=== PATIENT | female | born 1940 | race Caucasian/White ===

== ENCOUNTER 2017-06-26 12:28 | Inpatient (IN) ==
--- NOTE | 2017-06-26 12:56 | Emergency Department Note ---
Disposition Clinical Impression: Compression fracture of thoracic spine, non-traumatic Qualifiers: Encounter type: initial encounter Thoracic vertebra fracture level: T12 Qualified Code(s): M48.54XA - Collapsed vertebra, not elsewhere classified, thoracic region, initial encounter for fracture Disposition: Admitted As Inpatient Condition: Good Forms: ED Satisfaction Letter Time of Disposition: 14:05 (Dr Denise) Fall HPI - General Chief Complaint: ED Back Pain/Injury Stated Complaint: fell,legs gave out Time Seen by Provider: 06/26/17 12:39 Source: patient, family Mode of arrival: EMS Limitations: no limitations Nursing Notes Reviewed: Yes Vital Signs Reviewed: Yes - History of Present Illness Pt Subjective Complaint: fall Onset (ago): Just [employer] Fall From: standing Fall Witnessed: no Place Fall Occurred: home Loss of Consciousness: none Prolonged Down Time?: no Symptoms Prior to Fall: none Context: other (76-year-old female brought in by EMS secondary to fall at home. The patient was laying down for approximately an hour in her bed and decided to get up and go to the bathroom. The patient had approximately 3 steps and she felt weak in her lower extremities and subsequently fell to the floor. She states following was likely on her knees and her hands. She denies any loss of consciousness. The patient was seen by PCP on Sunday and had an x- ray done of her lower back secondary to pain. Drink this time the patient is reported to have weakness and falling in the last week or so. She denies any associated chest pain, dizziness, abdominal pain, paresthesia to the lower extremities or weakness, or palpitation. Denies blurry vision) Location of injury: back Severity: moderate Severity scale (1-10): 4 Quality: dull Associated symptoms (after fall): Reports: weakness, unable to walk, other ( Secondary to difficulty walking she had 2 bouts of bladder incontinence.). Denies: shortness of breath, abdominal pain, hematuria, lightheaded, vertigo, confusion - Related Data Home Medications Medication Instructions Recorded Confirmed Esomeprazole Magnesium [Nexium] 40 mg PO DAILY 05/15/15 06/26/17 Losartan Potassium [Cozaar] 50 mg PO BID 05/15/15 06/26/17 Atorvastatin [Lipitor] 40 mg PO HS 06/14/15 06/26/17 Clopidogrel [Plavix] 75 mg PO DAILY 06/14/15 06/26/17 Isosorbide MONOnitrate (24 HR) 30 mg PO DAILY 06/14/15 06/26/17 [Imdur] Sertraline [Zoloft] 100 mg PO DAILY 01/01/17 06/26/17 Tramadol HCl [Ultram] 50 mg PO BID PRN 01/01/17 06/26/17 Previous Rx's Medication Instructions Recorded ALPRAZolam [Xanax 0.25 MG Tablet] 0.25 mg PO BID PRN #120 tablet 06/24/15 Carvedilol [Coreg] 6.25 mg PO BIDWM 365 Days tablet 06/24/15 Gabapentin [Neurontin] 300 mg PO DAILY #0 06/24/15 metFORMIN [Glucophage] 500 mg PO 0800 365 Days tablet 06/24/15 HYDROcodone/Acet 5/325 mg [[place] 1 tab PO Q4H PRN #15 tab 01/01/17 5-325 mg] predniSONE [PredniSONE] 60 mg PO DAILY #5 tablet 01/01/17 Allergies Allergy/AdvReac Type Severity Reaction Status Date / Time lorazepam [From Ativan] Allergy Hallucinati Verified 01/01/17 12:42 ng All systems ED: reviewed and negative except as stated. Fall PMH - Past Medical History Medical history: Reports: arthritis, coronary artery disease, diabetes, hypertension, other Surgical history: Reports: angioplasty/stent, hysterectomy, orthopedic, other Psychiatric history: Reports: depression - Social History Smoking Status: Never smoker Alcohol use: Reports: rarely Drug use: Reports: none Physical Exam - General Limitations: physical limitation General appearance: alert, in no apparent distress - Head Head exam: atraumatic, normocephalic, normal inspection - Eye Eye exam: Present: normal appearance, PERRL, EOMI. Absent: scleral icterus, conjunctival injection, nystagmus - ENT ENT exam: normal exam, normal oropharynx, mucous membranes moist - Neck Neck exam: Present: normal inspection, full ROM, trachea midline - Respiratory Respiratory exam: Present: normal lung sounds bilaterally - Cardiovascular Cardiovascular exam: Present: regular rate, normal rhythm, normal heart sounds - Abdominal Exam Abdominal exam: Present: soft, Non-Tender. Absent: tenderness, distention, guarding, rebound, rigidity - Extremities Exam Extremities exam: Present: normal inspection, full ROM. Absent: tenderness, pedal edema - Expanded Lower Extremity Exam Hip/Pelvis exam: Present: normal inspection, full ROM. Absent: tenderness Upper leg exam: Present: normal inspection, full ROM Knee exam: Present: normal inspection, full ROM, tenderness (Bilateral Mild tenderness to palpation anteriorly) Lower leg exam: Present: normal inspection, full ROM Ankle exam: Present: normal inspection, full ROM - Back Exam Back exam: Present: normal inspection, full ROM, tenderness, paraspinal tenderness (Lower thoracic and upper lumbar area). Absent: vertebral tenderness - Neurological Exam Neurological exam: Present: alert, oriented X3, CN II-XII intact. Absent: motor sensory deficit - Psychiatric Psychiatric exam: Present: normal affect, normal mood - Skin Skin exam: Present: warm, dry, intact, normal color Course Vital Signs Temperature 97.7 F 06/26/17 12:33 Pulse Rate 61 06/26/17 12:33 Respiratory Rate 18 06/26/17 12:33 Blood Pressure 163/80 06/26/17 12:33 O2 Sat by Pulse Oximetry 94 06/26/17 12:33 Temperature 97.7 F 06/26/17 12:33 Pulse Rate 61 06/26/17 12:33 Respiratory Rate 18 06/26/17 12:33 Blood Pressure 163/80 06/26/17 12:33 O2 Sat by Pulse Oximetry 94 06/26/17 12:33 Oxygen Delivery Oxygen Delivery Room Air Fall - Differential Diagnosis Likely: syncope, traumatic injury - Medical Records Medical records reviewed: Yes I reviewed the patient's medical records. - Lab Data Lab results reviewed: Yes I reviewed the patient's lab results. Result diagrams: 06/26/17 13:12 06/26/17 13:12 Lab Results 06/26/17 06/26/17 06/26/17 Range/Units 13:12 13:12 13:12 WBC 9.8 (4.3-11.1) K/mcL RBC 4.38 (3.82-4.97) M/mcL Hgb 13.3 (11.5-15.4) g/dL Hct 39.4 (35.3-44.9) % MCV 90.0 (83.0-100.0) fL MCH 30.4 (28.0-33.3) pg MCHC 33.8 (31.6-35.5) g/dL RDW 12.7 (11.5-14.5) % Plt Count 376 (140-400) K/mcL MPV 9.1 L (9.4-12.4) fL Immature Gran % 0.4 (0-4) % Seg Neutrophils % 70.5 % Lymphocytes % 21.6 % Monocytes % 5.5 % Eosinophils % 1.4 % Basophils % 0.6 % Neutrophils # 6.9 (1.6-8.9) K/mcL Lymphocytes # 2.1 (0.6-4.6) K/mcL Monocytes # 0.5 (0.0-1.3) K/mcL Eosinophils # 0.1 (0.0-0.6) K/mcL Basophils # 0.1 (0.0-0.2) K/mcL Sodium 137 (136-145) mEq/L Potassium 3.7 (3.5-5.1) mEq/L Chloride 96 L (98-107) mEq/L Carbon Dioxide 34 H (23-29) mEq/L BUN 13 (8-23) mg/dL Glucose 109 H (70-105) mg/dL Calculated Osmolality 285 (280-300) Calcium 9.3 (8.6-10.3) mg/dL Creatine Kinase 91 (30-223) Units/L Urine Color (Yellow) Urine Clarity (Clear) Urine pH (5.0-8.0) pH Units Ur Specific [place] (1.010-1.025) Urine Protein (Neg-Trace) mg/dL Urine Glucose (UA) (Normal) mg/dL Urine Ketones (Negative) mg/dL Urine Blood (Negative) Urine Nitrite (Negative) Urine Bilirubin (Negative) Urine Urobilinogen (Normal) mg/dL Ur Leukocyte Esterase (Negative) Urine Microscopic RBC (0-3) per hpf Urine Microscopic WBC (0-3) per hpf Ur Squamous Epith Cells (None-Few) per lpf Ur Culture Indicated? (NO) 06/26/17 Range/Units 13:29 WBC (4.3-11.1) K/mcL RBC (3.82-4.97) M/mcL Hgb (11.5-15.4) g/dL Hct (35.3-44.9) % MCV (83.0-100.0) fL MCH (28.0-33.3) pg MCHC (31.6-35.5) g/dL RDW (11.5-14.5) % Plt Count (140-400) K/mcL MPV (9.4-12.4) fL Immature Gran % (0-4) % Seg Neutrophils % % Lymphocytes % % Monocytes % % Eosinophils % % Basophils % % Neutrophils # (1.6-8.9) K/mcL Lymphocytes # (0.6-4.6) K/mcL Monocytes # (0.0-1.3) K/mcL Eosinophils # (0.0-0.6) K/mcL Basophils # (0.0-0.2) K/mcL Sodium (136-145) mEq/L Potassium (3.5-5.1) mEq/L Chloride (98-107) mEq/L Carbon Dioxide (23-29) mEq/L BUN (8-23) mg/dL Glucose (70-105) mg/dL Calculated Osmolality (280-300) Calcium (8.6-10.3) mg/dL Creatine Kinase (30-223) Units/L Urine Color Yellow (Yellow) Urine Clarity Clear (Clear) Urine pH 7.0 (5.0-8.0) pH Units Ur Specific [place] 1.015 (1.010-1.025) Urine Protein 30 H (Neg-Trace) mg/dL Urine Glucose (UA) Normal (Normal) mg/dL Urine Ketones Negative (Negative) mg/dL Urine Blood Trace-intact H (Negative) Urine Nitrite Negative (Negative) Urine Bilirubin Negative (Negative) Urine Urobilinogen Normal (Normal) mg/dL Ur Leukocyte Esterase Negative (Negative) Urine Microscopic RBC 0-3 (0-3) per hpf Urine Microscopic WBC 0-3 (0-3) per hpf Ur Squamous Epith Cells Few (None-Few) per lpf Ur Culture Indicated? NO (NO) - Radiology Data Radiology results reviewed: Yes I reviewed the patient's radiology results. Thoracic Spine CT 06/26/17 13:06 IMPRESSION: 1. Acute minimal anterior compression deformity of T12 involving the anterior portion of the superior endplate. 2. Bony demineralization, suggesting osteoporosis given the above finding. 3. Mild to moderate thoracic spine degenerative changes. D/ / Сергей Cruz MD / Сергей Cruz MD Interpreting Provider: Сергей Cruz MD Head CT 06/26/17 13:10 IMPRESSION: No acute intracranial hemorrhage or mass effect. Mild disproportionate ventricular enlargement, similar to 2016. Findings may reflect central atrophy and/or communicating hydrocephalus. There is moderate periventricular white matter disease. D/ / Myles Harry MD / Myles Harry MD Interpreting Provider: Myles Harry MD
[2017-06-26] MEDS ORDERED: *HR* HYDROcodone/Acet 5/325 mg TABLET PO ONE (13:07)
[2017-06-26 13:21] LABS: Basophils # 0.1 K/mcL (0.0-0.2); Basophils % 0.6 %; Eosinophils # 0.1 K/mcL (0.0-0.6); Eosinophils % 1.4 %; Hematocrit 39.4 % (35.3-44.9); Hemoglobin 13.3 g/dL (11.5-15.4); Immature Granulocytes % 0.4 % (0-4); Lymphocytes # 2.1 K/mcL (0.6-4.6); Lymphocytes % 21.6 %; Mean Corpuscular HGB Conc 33.8 g/dL (31.6-35.5); Mean Corpuscular Hemoglobin 30.4 pg (28.0-33.3); Mean Platelet Volume 9.1 fL (9.4-12.4); Monocytes # 0.5 K/mcL (0.0-1.3); Monocytes % 5.5 %; Neutrophils # 6.9 K/mcL (1.6-8.9); Platelet Count 376 K/mcL (140-400); Red Blood Count 4.38 M/mcL (3.82-4.97); Red Cell Distribution Width 12.7 % (11.5-14.5); Segmented Neutrophils % 70.5 %
[2017-06-26 13:33] LABS: Bilirubin,Urine Negative (Negative); Blood,Urine Trace-intact (Negative); Clarity,Urine Clear (Clear); Color,Urine Yellow (Yellow); Glucose,Urine (UA) Normal (Normal); Ketones,Urine Negative (Negative); Leukocyte Esterase,Urine Negative (Negative); Nitrite,Urine Negative (Negative); Protein,Urine 30 mg/dL (Neg-Trace); Specific Gravity,Urine 1.015 (1.010-1.025); Urobilinogen,Urine Normal (Normal)
[2017-06-26 13:44] LABS: RBC,Urine 0-3 per hpf (0-3); Squamous Epithelial Cell,Urine Few per lpf (None-Few); WBC,Urine 0-3 per hpf (0-3)
[2017-06-26 13:51] LABS: Blood Urea Nitrogen 13 mg/dL (8-23); Calcium 9.3 mg/dL (8.6-10.3); Carbon Dioxide 34 mEq/L (23-29); Chloride 96 mEq/L (98-107); Glucose 109 mg/dL (70-105); Osmolality,Calculated 285 (280-300); Potassium 3.7 mEq/L (3.5-5.1); Sodium 137 mEq/L (136-145)
[2017-06-26 14:53] LABS: Thyroid Stimulating Hormone 3.253 mcIU/mL (0.340-5.600)
[2017-06-26 15:01] LABS: BUN/Creatinine Ratio 18 (6-26); eGFR For African Americans > 60 (> 60); eGFR For Non-African Americans > 60 (> 60)
[2017-06-26] MEDS ORDERED: ALPRAZolam 0.25 MG TABLET PO PRN (16:26)
[2017-06-26] MEDS ORDERED: traMADol 50 MG TABLET PO PRN (16:26)
[2017-06-26] MEDS ORDERED: Naloxone 0.4 MG/ML INJ IVP PRN (16:26)
[2017-06-26] MEDS ORDERED: *HR* OxyCODONE Immed Rel 5 MG TABLET PO PRN (16:26)
[2017-06-26] MEDS ORDERED: Ondansetron ODT 4 MG TAB.RAPDIS SL PRN (16:26)
[2017-06-26] MEDS: *HR* OxyCODONE Immed Rel 5 MG TABLET PO PRN (18:00)
[2017-06-26] MEDS: *HR* HYDROcodone/Acet 5/325 mg TABLET PO PRN (21:53)
[2017-06-27] MEDS: *HR* OxyCODONE Immed Rel 5 MG TABLET PO PRN (03:39)
[2017-06-27] MEDS: Isosorbide MONOnitrate (24 HR) 30 MG TAB.ER.24H PO SCH (08:43)
[2017-06-27] MEDS: Gabapentin 300 MG CAPSULE PO SCH (08:43)
[2017-06-27] MEDS: *HR* Metformin 500 MG TABLET PO SCH (08:43)
[2017-06-27] MEDS ORDERED: predniSONE 20 MG TABLET PO SCH (09:00)
--- NOTE | 2017-06-27 12:10 | Internal Med History&Physical ---
Date of Encounter: 06/27/17 Time of Encounter: 11:40 Assessment and Plan (1) T12 compression fracture Current visit: Yes Status: Acute Will give scheduled and prn analgesics. Check vitamin D level. Will order PT and OT evaluation (2) Osteoporosis Current visit: Yes Status: Chronic We will check vitamin D level. Qualifiers: Osteoporosis type: unspecified Presence of current pathological fracture: unspecified Qualified Code(s): M81.0 - Age-related osteoporosis without current pathological fracture (3) DM type 2 (diabetes mellitus, type 2) Current visit: No Status: Chronic We will check hemoglobin A1c in a.m. Qualifiers: Diabetes mellitus fci insulin use: without fci use Diabetes mellitus complication status: without complication Qualified Code(s): E11.9 - Type 2 diabetes mellitus without complications (4) Hypertension Current visit: No Status: Chronic Will continue Coreg and Cozaar. Qualifiers: Hypertension type: essential hypertension Qualified Code(s): I10 - Essential (primary) hypertension Internal Medicine - H&P: HPI Chief complaint: Follow with back pain Admitted From: Emergency Dept Plans for Post Hospital Care: Home History of present illness: Ms. Pisano is a 76 year old female who came to emergency room after having a fall at home while ambulating from her bed to the bathroom. She denies loss of consciousness but states she simply became weak and fell to the floor landing on her buttocks. She called family members who called the squad and she was brought to emergency room. CT of thoracic spine showed approximately 15% anterior compression deformity of anterior superior endplate of T12. She was admitted to [facility] [place] for ongoing care needs. Her PCP had ordered LS spine x-rays 06/22/2017 following a fall. The T12 vertebra showed less than 10% loss of vertebral body height. There was stable L2 superior endplate compression fracture and unchanged grade 1 anterolisthesis of L2 on L3. She has had posterior lumbar spinal fusion and discectomy L3-5. There was evidence of osteoporosis on imaging studies. She had document a low vitamin D level of 23 on 11/09/2016. She has DJD but denies gout or other bone joint or muscle disorders. Past Med Surg Social Fam HX - Past Medical History Medical history: arthritis, coronary artery disease, diabetes, hypertension, other Psychiatric history: depression - Past Surgical History Surgical History: angioplasty/stent, hysterectomy, orthopedic, other - Social History Smoking Status: Never smoker Smokeless Tobacco Status: No Alcohol use: rarely Drug use: none Internal Medicine - H&P: Meds Esomeprazole Magnesium [Nexium] 40 mg PO DAILY 05/15/15 [History] Losartan Potassium [Cozaar] 50 mg PO BID 05/15/15 [History] Atorvastatin [Lipitor] 40 mg PO HS 06/14/15 [History] Clopidogrel [Plavix] 75 mg PO DAILY 06/14/15 [History] Isosorbide MONOnitrate (24 HR) [Imdur] 30 mg PO DAILY 06/14/15 [History] ALPRAZolam [Xanax 0.25 MG Tablet] 0.25 mg PO BID PRN #120 tablet 06/24/15 [Rx] Carvedilol [Coreg] 6.25 mg PO BIDWM 365 Days tablet 06/24/15 [Rx] Gabapentin [Neurontin] 300 mg PO DAILY #0 06/24/15 [Rx] metFORMIN [Glucophage] 500 mg PO 0800 365 Days tablet 06/24/15 [Rx] HYDROcodone/Acet 5/325 mg [[place] 5-325 mg] 1 tab PO Q4H PRN #15 tab 01/01/17 [Rx ] Sertraline [Zoloft] 100 mg PO DAILY 01/01/17 [History] Tramadol HCl [Ultram] 50 mg PO BID PRN 01/01/17 [History] predniSONE [PredniSONE] 60 mg PO DAILY #5 tablet 01/01/17 [Rx] 3 Allergy/AdvReac Type Severity Reaction Status Date / Time lorazepam [From Ativan] AdvReac Hallucinati Verified 06/26/17 16:37 ng All Systems PM: A 10-system review of systems was performed and is negative for pertinent findings except as documented above in the HPI. Review of systems: Gen.: Her weight has increased from 69.003 kg on 09/04/2015 to 77.224 kg on admission now. She states weight increase is due to drinking increased amounts of soda pop. Cardiovascular: She has history of hypertension and known ASHD with 5 stents placed. Her most recent stent was July 2015 at [facility]. She denies heart failure SC DVT or pulmonary embolus. Respiratory: She is a lifelong nonsmoker and has no known chronic lung disease. GI: She has GERD but denies other disorders of her liver gallbladder or exocrine pancreas. : She denies hematuria dysuria or kidney stones. Neurologic: She denies large distribution strokes or seizures. She does have DPN Endocrine: She was diagnosed with DM 2 approximately 2009. Hemoglobin A1c was 5.5% on 03/08/2016. She has hyperlipidemia but no known thyroid disease. Hematology/oncology: She denies blood disorders cancers or anemia. Psychiatric: She has anxiety and depression but denies other mental health issues Musk skeletal: As per history of present illness - Constitutional Vitals: Temp Pulse Resp BP Pulse Ox 98.2 F 67 17 149/72 93 06/27/17 11:30 06/27/17 11:30 06/27/17 11:30 06/27/17 11:30 06/27/17 11:30 Exam: Gen.: She is a well-developed well-nourished female lying in bed who appears in pain on any movement of her low back. HEENT: Head is atraumatic and normocephalic. Eyes: EOMI. There is no scleral icterus. Mouth: Mucosa is moist. Neck: Supple and nontender. There is no thyromegaly or adenopathy noted. Heart: Regular without murmurs gallops or ectopics Lungs: No wheezes or crackles are heard. Abdomen: Soft and nontender. No masses or guarding are noted. Extremities: There is no cyanosis edema or clubbing noted. Dorsalis pedis and posttibial pulses are trace to 1+ palpable bilaterally. She has DJD changes or hands. Neurologic: Mental status: She is talkative and a good historian. Cranial nerves: Smile is symmetric. Forehead wrinkles bilaterally. Tongue protrudes midline. EOMI. Motor: There is no pronator drift. Cerebellar: Finger to nose is intact bilaterally. Skin: Warm and dry Internal Med - H&P Results - Labs CBC & Chem 7: 06/26/17 13:12 06/26/17 13:12
[2017-06-27] MEDS: Methyl Salicylate/Menthol 28 GM TUBE TP SCH (14:11)
[2017-06-27] MEDS: Acetaminophen 325 MG TABLET PO SCH ×3 (14:11→23:12)
[2017-06-27] MEDS: Primidone 50 MG TABLET PO SCH ×2 (16:50→20:29)
[2017-06-27] MEDS: ALPRAZolam 0.25 MG TABLET PO SCH (20:29)
[2017-06-28] MEDS: *HR* OxyCODONE Immed Rel 5 MG TABLET PO PRN (00:28)
[2017-06-28] MEDS: Acetaminophen 325 MG TABLET PO SCH ×3 (05:30→17:52)
[2017-06-28] MEDS: *HR* Enoxaparin 40 MG/0.4 ML SYRINGE SQ SCH (05:31)
[2017-06-28] MEDS: Gabapentin 300 MG CAPSULE PO SCH (08:37)
[2017-06-28] MEDS: *HR* Metformin 500 MG TABLET PO SCH (08:37)
[2017-06-28] MEDS: Isosorbide MONOnitrate (24 HR) 30 MG TAB.ER.24H PO SCH (08:38)
[2017-06-28] MEDS: ALPRAZolam 0.25 MG TABLET PO SCH ×2 (08:42→21:13)
[2017-06-28] MEDS: Primidone 50 MG TABLET PO SCH ×3 (08:42→21:17)
[2017-06-28] MEDS: Methyl Salicylate/Menthol 28 GM TUBE TP SCH (08:44)
[2017-06-28 09:57] LABS: Estimated Average Glucose 117 mg/dl; Hemoglobin A1C 5.7 %
[2017-06-28] MEDS ORDERED: Ondansetron ODT 4 MG TAB.RAPDIS SL PRN (10:34)
--- NOTE | 2017-06-28 10:59 | Internal Med Progress Note ---
Date of Encounter: 06/28/17 Time of Encounter: 10:25 - Assessment and plan (1) T12 compression fracture Current Visit: Yes Status: Acute Assessment and plan: June 28. Continue therapy interventions with present analgesic regimen. (2) Osteoporosis Current Visit: Yes Status: Chronic Assessment and plan: June 28. Vitamin D level pending Qualifiers: Osteoporosis type: unspecified Presence of current pathological fracture: unspecified Qualified Code(s): M81.0 - Age-related osteoporosis without current pathological fracture (3) DM type 2 (diabetes mellitus, type 2) Current Visit: No Status: Chronic Assessment and plan: June 28. Hemoglobin A1c acceptable at 5.7%. Qualifiers: Diabetes mellitus fdc insulin use: without fdc use Diabetes mellitus complication status: without complication Qualified Code(s): E11.9 - Type 2 diabetes mellitus without complications (4) Hypertension Current Visit: No Status: Chronic Assessment and plan: June 28. Blood pressures show significant fluctuation. Continue Coreg and Cozaar at present doses for now. Qualifiers: Hypertension type: essential hypertension Qualified Code(s): I10 - Essential (primary) hypertension (5) Nausea Current Visit: Yes Status: Acute Assessment and plan: June 28. Continue Zofran when necessary (6) Insomnia Current Visit: Yes Status: Acute Assessment and plan: June 28. We will order trazodone. Qualifiers: Insomnia type: unspecified Qualified Code(s): G47.00 - Insomnia, unspecified - Subjective Interval history: June 28. She complains of nausea. Her back pain has lessened on the present regimen from yesterday. - Constitutional Vitals: Temp Pulse Resp BP Pulse Ox 97.4 F L 65 20 172/69 93 06/28/17 10:16 06/28/17 10:16 06/28/17 10:16 06/28/17 10:16 06/28/17 10:16 Exam: She is resting comfortably in bed and appears in no acute distress. Her affect is bright and cheerful. She does not appear to be in significant pain. I reviewed her medications. I discussed her hemoglobin A1c result. Internal Medicine: Result - Labs CBC & Chem 7: 06/26/17 13:12 06/26/17 13:12 Consult Discharge Plan - Plan Referrals: Tania Morales MD [Primary Care Provider] - 1 week
[2017-06-28] MEDS: *HR* HYDROcodone/Acet 5/325 mg TABLET PO PRN (21:10)
[2017-06-28] MEDS: traZODone 50 MG TABLET PO SCH (21:11)
[2017-06-29] MEDS: Acetaminophen 325 MG TABLET PO SCH ×4 (06:29→16:11)
[2017-06-29] MEDS: *HR* Enoxaparin 40 MG/0.4 ML SYRINGE SQ SCH ×2 (06:29→06:41)
[2017-06-29] MEDS: *HR* Metformin 500 MG TABLET PO SCH (08:50)
[2017-06-29] MEDS: Isosorbide MONOnitrate (24 HR) 30 MG TAB.ER.24H PO SCH (08:50)
[2017-06-29] MEDS: Gabapentin 300 MG CAPSULE PO SCH (08:50)
[2017-06-29] MEDS: ALPRAZolam 0.25 MG TABLET PO SCH ×2 (08:51→21:00)
[2017-06-29] MEDS: Primidone 50 MG TABLET PO SCH ×3 (08:55→21:03)
[2017-06-29] MEDS: Methyl Salicylate/Menthol 28 GM TUBE TP SCH (08:55)
--- NOTE | 2017-06-29 09:52 | Internal Med Progress Note ---
Date of Encounter: 06/29/17 Time of Encounter: 09:45 - Assessment and plan (1) T12 compression fracture Current Visit: Yes Status: Acute Assessment and plan: June 28. Continue therapy interventions with present analgesic regimen. June 29. Continue present treatment. Anticipate discharge to swing bed in 1- 2 days for ongoing rehabilitation care needs. (2) Osteoporosis Current Visit: Yes Status: Chronic Assessment and plan: June 28. Vitamin D level pending June 29. Vitamin D level acceptable at 29. Qualifiers: Osteoporosis type: unspecified Presence of current pathological fracture: unspecified Qualified Code(s): M81.0 - Age-related osteoporosis without current pathological fracture (3) DM type 2 (diabetes mellitus, type 2) Current Visit: No Status: Chronic Assessment and plan: June 28. Hemoglobin A1c acceptable at 5.7%. Qualifiers: Diabetes mellitus ferry terminal agent insulin use: without ferry terminal agent use Diabetes mellitus complication status: without complication Qualified Code(s): E11.9 - Type 2 diabetes mellitus without complications (4) Hypertension Current Visit: No Status: Chronic Assessment and plan: June 28. Blood pressures show significant fluctuation. Continue Coreg and Cozaar at present doses for now. Qualifiers: Hypertension type: essential hypertension Qualified Code(s): I10 - Essential (primary) hypertension (5) Nausea Current Visit: Yes Status: Acute Assessment and plan: June 28. Continue Zofran when necessary (6) Insomnia Current Visit: Yes Status: Acute Assessment and plan: June 28. We will order trazodone. June 29. Trazodone effective. Will continue Qualifiers: Insomnia type: unspecified Qualified Code(s): G47.00 - Insomnia, unspecified - Subjective Interval history: June 28. She complains of nausea. Her back pain has lessened on the present regimen from yesterday. June 29. She has no new complaints and feels better. She is still having occasional slight nausea but it has lessened. - Constitutional Vitals: Temp Pulse Resp BP Pulse Ox 98.0 F 66 12 157/84 94 06/29/17 07:01 06/29/17 07:01 06/29/17 07:01 06/29/17 07:01 06/29/17 07:01 Exam: She is resting comfortably in bed and appears in no acute distress. Her affect is bright and cheerful. I reviewed her medications. Internal Medicine: Result - Labs CBC & Chem 7: 06/26/17 13:12 06/26/17 13:12 Consult Discharge Plan - Plan Referrals: Tania Morales MD [Primary Care Provider] - 1 week
[2017-06-29] MEDS: traZODone 50 MG TABLET PO SCH (20:59)
[2017-06-29] MEDS: *HR* OxyCODONE Immed Rel 5 MG TABLET PO PRN (21:02)
[2017-06-30] MEDS: Acetaminophen 325 MG TABLET PO SCH ×3 (00:24→11:23)
[2017-06-30] MEDS: *HR* Enoxaparin 40 MG/0.4 ML SYRINGE SQ SCH (06:30)
[2017-06-30] MEDS: *HR* Metformin 500 MG TABLET PO SCH (07:27)
[2017-06-30] MEDS: Primidone 50 MG TABLET PO SCH (07:28)
[2017-06-30] MEDS: Gabapentin 300 MG CAPSULE PO SCH (08:26)
[2017-06-30] MEDS: Methyl Salicylate/Menthol 28 GM TUBE TP SCH (08:27)
[2017-06-30] MEDS: Isosorbide MONOnitrate (24 HR) 30 MG TAB.ER.24H PO SCH (08:27)
[2017-06-30] MEDS: ALPRAZolam 0.25 MG TABLET PO SCH (08:31)
[2017-06-30 13:08] VITALS: BP 117/66
[2017-06-30] MEDS: *HR* HYDROcodone/Acet 5/325 mg TABLET PO PRN (13:08)
--- NOTE | 2017-06-30 14:29 | Discharge Summary ---
Date of Encounter: 06/30/17 Time of Encounter: 14:15 - Discharge Diagnosis (1) T12 compression fracture Priority: Primary Status: Acute (2) Osteoporosis Priority: Secondary Status: Chronic Qualifiers: Osteoporosis type: unspecified Presence of current pathological fracture: unspecified Qualified Code(s): M81.0 - Age-related osteoporosis without current pathological fracture (3) DM type 2 (diabetes mellitus, type 2) Priority: Secondary Status: Chronic Qualifiers: Diabetes mellitus usp insulin use: without usp use Diabetes mellitus complication status: without complication Qualified Code(s): E11.9 - Type 2 diabetes mellitus without complications (4) Hypertension Priority: Secondary Status: Chronic Qualifiers: Hypertension type: essential hypertension Qualified Code(s): I10 - Essential (primary) hypertension (5) Nausea Priority: Secondary Status: Acute (6) Insomnia Priority: Secondary Status: Acute Qualifiers: Insomnia type: unspecified Qualified Code(s): G47.00 - Insomnia, unspecified Hospital course: Ms. Pisano is a 76 year old female who came to emergency room after having a fall at home while ambulating from her bed to the bathroom. She denies loss of consciousness but states she simply became weak and fell to the floor landing on her buttocks. She called family members who called the squad and she was brought to emergency room. CT of thoracic spine showed approximately 15% anterior compression deformity of anterior superior endplate of T12. She was admitted to [facility] for ongoing care needs. Initial orders were written by the emergency room physician. I saw her on June 27 and performed a history and physical. She was given scheduled and prn analgesics. Physical therapy and occupational therapy evaluations with ongoing interventions were done. She made satisfactory improvement. It was felt she would benefit from ongoing therapy in swing bed. Vitamin D level returned satisfactory at 29. Hemoglobin A1c returned satisfactory at 5.7%. TSH was normal at 3.253. On June 30 she was discharged to swing bed. - Time Spent with Patient Total time spent providing and/or coordinating discharge services: - Discharge Medications Home Medications: Esomeprazole Magnesium [Nexium] 40 mg PO DAILY 05/15/15 [History] Losartan Potassium [Cozaar] 50 mg PO BID 05/15/15 [History] Atorvastatin [Lipitor] 40 mg PO HS 06/14/15 [History] Clopidogrel [Plavix] 75 mg PO DAILY 06/14/15 [History] Isosorbide MONOnitrate (24 HR) [Imdur] 30 mg PO DAILY 06/14/15 [History] ALPRAZolam [Xanax 0.25 MG Tablet] 0.25 mg PO BID PRN #120 tablet 06/24/15 [Rx] Carvedilol [Coreg] 6.25 mg PO BIDWM 365 Days tablet 06/24/15 [Rx] Gabapentin [Neurontin] 300 mg PO DAILY #0 06/24/15 [Rx] metFORMIN [Glucophage] 500 mg PO 0800 365 Days tablet 06/24/15 [Rx] HYDROcodone/Acet 5/325 mg [[place] 5-325 mg] 1 tab PO Q4H PRN #15 tab 01/01/17 [Rx ] Sertraline [Zoloft] 100 mg PO DAILY 01/01/17 [History] Tramadol HCl [Ultram] 50 mg PO BID PRN 01/01/17 [History] Acetaminophen [Tylenol] 650 mg PO Q6HR tablet 06/30/17 [Rx] Lidocaine Patch [Lidoderm 5% patch] 1 each TP DAILY adh..patch 06/30/17 [Rx] Methyl Salicylate/Menthol [[place]] 1 appl TP DAILY tube 06/30/17 [Rx] OxyCODONE Immed Rel [Roxicodone 5 MG] 5 mg PO Q4H PRN 20 Days tablet 06/30/17 [ Rx] OxyCODONE Immed Rel [Roxicodone 5 MG] 10 mg PO Q4H PRN 20 Days tablet 06/30/17 [Rx] Allergies/Adverse Reactions: 3 Allergy/AdvReac Type Severity Reaction Status Date / Time lorazepam [From Ativan] AdvReac Hallucinati Verified 06/26/17 16:37 ng Date of admission: 06/27/17 19:11 Primary care physician: Tania Morales - Constitutional Vitals: Temp Pulse Resp BP Pulse Ox 98.3 F 71 16 117/66 92 06/30/17 13:07 06/30/17 13:07 06/30/17 13:07 06/30/17 13:07 06/30/17 13:07 - Patient Status Disposition: Transfer Hospital Swing Bed Condition: Good - Discharge Instructions - Diet and Activity Activity: as per physical therapy Diet: diabetic diet
== END 2017-06-30 15:10 | disposition other institution (70) | DRG 552 ==
LOC: EMEROOPIK 12:28 → INPPIK 12:28
PROVIDERS: ADMIT Internal Medicine; ATTEND Internal Medicine

== ENCOUNTER 2017-06-30 16:07 | Inpatient (IN) ==
[2017-06-30] MEDS ORDERED: *HR* HYDROcodone/Acet 5/325 mg TABLET PO PRN (16:36)
[2017-06-30] MEDS: Acetaminophen 325 MG TABLET PO SCH ×2 (16:51→23:40)
[2017-06-30] MEDS: ALPRAZolam 0.25 MG TABLET PO PRN (22:53)
[2017-06-30] MEDS: *HR* OxyCODONE Immed Rel 5 MG TABLET PO PRN (23:17)
[2017-07-01] MEDS: Acetaminophen 325 MG TABLET PO SCH ×4 (05:40→23:43)
[2017-07-01 07:05] LABS: Basophils # 0.1 K/mcL (0.0-0.2); Basophils % 0.6 %; Eosinophils # 0.3 K/mcL (0.0-0.6); Eosinophils % 4.1 %; Hematocrit 35.9 % (35.3-44.9); Hemoglobin 11.8 g/dL (11.5-15.4); Immature Granulocytes % 0.3 % (0-4); Lymphocytes # 2.8 K/mcL (0.6-4.6); Lymphocytes % 35.8 %; Mean Corpuscular HGB Conc 32.9 g/dL (31.6-35.5); Mean Corpuscular Volume 91.3 fL (83.0-100.0); Mean Platelet Volume 9.2 fL (9.4-12.4); Monocytes # 0.6 K/mcL (0.0-1.3); Monocytes % 7.9 %; Platelet Count 361 K/mcL (140-400); Red Blood Count 3.93 M/mcL (3.82-4.97); Red Cell Distribution Width 12.7 % (11.5-14.5); Segmented Neutrophils % 51.3 %
[2017-07-01 07:30] LABS: Prothrombin Time 10.5 Seconds (9.4-12.1)
[2017-07-01 07:32] LABS: Activated Partial Thrombo Time 26.5 Seconds (26.0-36.0)
[2017-07-01 07:35] LABS: BUN/Creatinine Ratio 24 (6-26); Blood Urea Nitrogen 18 mg/dL (8-23); Calcium 8.6 mg/dL (8.6-10.3); Carbon Dioxide 33 mEq/L (23-29); Chloride 100 mEq/L (98-107); Glucose 119 mg/dL (70-105); Osmolality,Calculated 287 (280-300); Sodium 137 mEq/L (136-145); eGFR For African Americans > 60 (> 60); eGFR For Non-African Americans > 60 (> 60)
[2017-07-01] MEDS: *HR* Metformin 500 MG TABLET PO SCH (08:35)
[2017-07-01] MEDS: Isosorbide MONOnitrate (24 HR) 60 MG TAB.ER.24H PO SCH (08:35)
[2017-07-01] MEDS: Gabapentin 300 MG CAPSULE PO SCH (08:36)
[2017-07-01] MEDS: Methyl Salicylate/Menthol 28 GM TUBE TP SCH (09:53)
--- NOTE | 2017-07-01 17:52 | Internal Med Progress Note ---
Date of Encounter: 07/01/17 Time of Encounter: 17:45 - Assessment and plan (1) T12 compression fracture Current Visit: No Status: Acute Assessment and plan: July 01. Continue BenGay, Lidoderm, and scheduled Tylenol with prn analgesics available. Continue therapy intervention. (2) Hypertension Current Visit: No Status: Chronic Assessment and plan: July 01. Continue Coreg and Cozaar. Qualifiers: Hypertension type: essential hypertension Qualified Code(s): I10 - Essential (primary) hypertension (3) Insomnia Current Visit: No Status: Acute Assessment and plan: July 01. Continue trazodone Qualifiers: Insomnia type: unspecified Qualified Code(s): G47.00 - Insomnia, unspecified - Subjective Interval history: July 01. She was hospitalized in acute-care June 26 with T12 compression fracture from a fall at home. She made satisfactory progress and PT and OT but it was felt she would benefit from ongoing therapy in swing bed. She has no new complaints today. - Constitutional Vitals: Temp Pulse Resp BP Pulse Ox 98.4 F 81 16 157/64 93 07/01/17 07:40 07/01/17 07:40 07/01/17 07:40 07/01/17 12:12 07/01/17 07:40 Exam: She is sitting on the side of bed and appears to be in at least mild pain from her low back. Her affect is overall bright and cheerful. I reviewed her medications and lab results. Internal Medicine: Result - Labs CBC & Chem 7: 07/01/17 06:45 07/01/17 06:45 Labs: Short CBC 07/01/17 Range/Units 06:45 WBC 7.9 (4.3-11.1) K/mcL Hgb 11.8 D (11.5-15.4) g/dL Hct 35.9 (35.3-44.9) % Plt Count 361 (140-400) K/mcL Neutrophils # 4.0 (1.6-8.9) K/mcL BMP 07/01/17 06:45 Sodium 137 Potassium 4.0 Chloride 100 Carbon Dioxide 33 H BUN 18 Creatinine 0.76 Glucose 119 H Calcium 8.6 - ABG Interpretation ABG results: PT/INR, D-dimer PT 10.5 Seconds (9.4-12.1) 07/01/17 06:45 Consult Discharge Plan - Plan Referrals: Tania Morales MD [Primary Care Provider] - 1 week
[2017-07-01] MEDS: *HR* OxyCODONE Immed Rel 5 MG TABLET PO PRN (22:11)
[2017-07-01] MEDS: ALPRAZolam 0.25 MG TABLET PO PRN (23:45)
[2017-07-02] MEDS: Acetaminophen 325 MG TABLET PO SCH ×3 (05:17→16:59)
[2017-07-02] MEDS: *HR* OxyCODONE Immed Rel 5 MG TABLET PO PRN ×3 (08:33→19:48)
[2017-07-02] MEDS: Gabapentin 300 MG CAPSULE PO SCH (08:35)
[2017-07-02] MEDS: *HR* Metformin 500 MG TABLET PO SCH (08:36)
[2017-07-02] MEDS: Isosorbide MONOnitrate (24 HR) 60 MG TAB.ER.24H PO SCH (08:37)
[2017-07-02] MEDS: Methyl Salicylate/Menthol 28 GM TUBE TP SCH (08:37)
[2017-07-02] MEDS: ALPRAZolam 0.25 MG TABLET PO PRN ×2 (08:45→19:49)
[2017-07-03] MEDS: Acetaminophen 325 MG TABLET PO SCH ×4 (04:35→17:06)
[2017-07-03] MEDS: *HR* OxyCODONE Immed Rel 5 MG TABLET PO PRN ×3 (06:18→21:18)
[2017-07-03] MEDS: *HR* Metformin 500 MG TABLET PO SCH (08:27)
[2017-07-03] MEDS: Isosorbide MONOnitrate (24 HR) 30 MG TAB.ER.24H PO SCH (08:27)
[2017-07-03] MEDS: Gabapentin 300 MG CAPSULE PO SCH (08:28)
[2017-07-03] MEDS: Methyl Salicylate/Menthol 28 GM TUBE TP SCH (09:57)
[2017-07-04] MEDS: Acetaminophen 325 MG TABLET PO SCH ×2 (05:53→13:45)
[2017-07-04] MEDS: *HR* OxyCODONE Immed Rel 5 MG TABLET PO PRN ×2 (05:54→13:46)
[2017-07-04] MEDS: *HR* Metformin 500 MG TABLET PO SCH (09:07)
[2017-07-04] MEDS: Isosorbide MONOnitrate (24 HR) 30 MG TAB.ER.24H PO SCH (09:07)
[2017-07-04] MEDS: Gabapentin 300 MG CAPSULE PO SCH (09:08)
--- NOTE | 2017-07-04 11:24 | Internal Med Progress Note ---
Date of Encounter: 07/04/17 Time of Encounter: 11:15 - Assessment and plan (1) T12 compression fracture Current Visit: No Status: Acute Assessment and plan: July 01. Continue BenGay, Lidoderm, and scheduled Tylenol with prn analgesics available. Continue therapy intervention. July 04. She states her present pain medication regimen is generally adequate and does not desire additional medication at this time. (2) Hypertension Current Visit: No Status: Chronic Assessment and plan: July 01. Continue Coreg and Cozaar. Qualifiers: Hypertension type: essential hypertension Qualified Code(s): I10 - Essential (primary) hypertension (3) Insomnia Current Visit: No Status: Acute Assessment and plan: July 01. Continue trazodone Qualifiers: Insomnia type: unspecified Qualified Code(s): G47.00 - Insomnia, unspecified (4) Anxiety Current Visit: Yes Status: Acute Assessment and plan: July 04. Continue prn alprazolam. - Subjective Interval history: July 01. She was hospitalized in acute-care June 26 with T12 compression fracture from a fall at home. She made satisfactory progress and PT and OT but it was felt she would benefit from ongoing therapy in swing bed. She has no new complaints today. July 04. She states her back pain has slightly lessened but is still significant. She feels anxious at times. - Constitutional Vitals: Temp Pulse Resp BP Pulse Ox 98.3 F 68 17 153/70 95 07/04/17 07:19 07/04/17 07:19 07/04/17 07:19 07/04/17 07:19 07/04/17 07:19 Exam: She is resting comfortably in bed and appears in no acute distress. Her affect is bright and cheerful overall. I reviewed her medications and past lab results. Internal Medicine: Result - Labs CBC & Chem 7: 07/01/17 06:45 07/01/17 06:45 - ABG Interpretation ABG results: PT/INR, D-dimer PT 10.5 Seconds (9.4-12.1) 07/01/17 06:45 Consult Discharge Plan - Plan Referrals: Tania Morales MD [Primary Care Provider] - 1 week
[2017-07-04] MEDS: ALPRAZolam 0.25 MG TABLET PO PRN ×2 (11:42→22:36)
[2017-07-04] MEDS: Methyl Salicylate/Menthol 28 GM TUBE TP SCH (13:45)
[2017-07-04] MEDS: traMADol 50 MG TABLET PO PRN ×2 (15:33→22:38)
[2017-07-04] MEDS: traZODone 50 MG TABLET PO PRN (21:20)
[2017-07-05] MEDS: Acetaminophen 325 MG TABLET PO SCH ×5 (07:25→17:25)
[2017-07-05] MEDS: Gabapentin 300 MG CAPSULE PO SCH (08:14)
[2017-07-05] MEDS: *HR* Metformin 500 MG TABLET PO SCH (08:14)
[2017-07-05] MEDS: Isosorbide MONOnitrate (24 HR) 30 MG TAB.ER.24H PO SCH (08:14)
[2017-07-05] MEDS: Methyl Salicylate/Menthol 28 GM TUBE TP SCH (08:17)
[2017-07-05] MEDS: traMADol 50 MG TABLET PO PRN (11:54)
[2017-07-05] MEDS: ALPRAZolam 0.25 MG TABLET PO PRN ×2 (11:55→21:40)
[2017-07-05] MEDS ORDERED: Mag Hydrox/Al Hydrox/Simeth 30 ML UDC PO PRN (15:54)
[2017-07-05] MEDS: traZODone 50 MG TABLET PO PRN (21:40)
[2017-07-05] MEDS: *HR* OxyCODONE Immed Rel 5 MG TABLET PO PRN (21:40)
[2017-07-06 07:15] VITALS: BP 173/85
--- NOTE | 2017-07-06 08:56 | Discharge Summary ---
Date of Encounter: 07/06/17 Time of Encounter: 08:45 - Discharge Diagnosis (1) T12 compression fracture Priority: Primary Status: Acute (2) Hypertension Priority: Secondary Status: Chronic Qualifiers: Hypertension type: essential hypertension Qualified Code(s): I10 - Essential (primary) hypertension (3) Insomnia Priority: Secondary Status: Acute Qualifiers: Insomnia type: unspecified Qualified Code(s): G47.00 - Insomnia, unspecified (4) Anxiety Priority: Secondary Status: Acute Hospital course: Ms. Pisano is a 76 year old female who was hospitalized in acute-care June 26 with T12 compression fracture from a fall at home. She made satisfactory progress in PT and OT but it was felt she would benefit from ongoing therapy in swing bed. She continued therapy in swing bed and had additional improvement. Her low back pain lessened slightly over time. On July 06 arrangements were complete for her to be discharged home. She will continue with BenGay Lidoderm and scheduled Tylenol. She will have home health services arranged at discharge. She will follow with her PCP Dr. Morales within 1 week. - Time Spent with Patient Total time spent providing and/or coordinating discharge services: - Discharge Medications Prescriptions: Lidocaine Patch [Lidoderm 5% patch] 1 each TP DAILY #7 adh..patch Home Medications: Esomeprazole Magnesium [Nexium] 40 mg PO DAILY 05/15/15 [History] Losartan Potassium [Cozaar] 50 mg PO BID 05/15/15 [History] Atorvastatin [Lipitor] 40 mg PO HS 06/14/15 [History] Clopidogrel [Plavix] 75 mg PO DAILY 06/14/15 [History] Isosorbide MONOnitrate (24 HR) [Imdur] 30 mg PO DAILY 06/14/15 [History] ALPRAZolam [Xanax 0.25 MG Tablet] 0.25 mg PO BID PRN #120 tablet 06/24/15 [Rx] Carvedilol [Coreg] 6.25 mg PO BIDWM 365 Days tablet 06/24/15 [Rx] Gabapentin [Neurontin] 300 mg PO DAILY #0 06/24/15 [Rx] metFORMIN [Glucophage] 500 mg PO 0800 365 Days tablet 06/24/15 [Rx] HYDROcodone/Acet 5/325 mg [[place] 5-325 mg] 1 tab PO Q4H PRN #15 tab 01/01/17 [Rx ] Sertraline [Zoloft] 100 mg PO DAILY 01/01/17 [History] Tramadol HCl [Ultram] 50 mg PO BID PRN 01/01/17 [History] Acetaminophen [Tylenol] 650 mg PO Q6HR tablet 06/30/17 [Rx] Methyl Salicylate/Menthol [Bengay] 1 appl TP DAILY tube 06/30/17 [Rx] Lidocaine Patch [Lidoderm 5% patch] 1 each TP DAILY #7 adh..patch 07/06/17 [Rx] Allergies/Adverse Reactions: 3 Allergy/AdvReac Type Severity Reaction Status Date / Time lorazepam [From Ativan] AdvReac Hallucinati Verified 06/26/17 16:37 ng Date of admission: 06/30/17 16:14 Primary care physician: Tania Morales Consults: 06/30/17 16:30 Consult to Occupational Therapy [CONS] Routine Comment: Evaluate, Plan and Implement Plan of care Reason for Consult: Evaluate, Plan and Implement Plan of care Does patient have active BEDREST order?: No Is patient medically & hemodynamically stable?: Yes Patient assessed for mobility or mobilized this visit?: Yes Consult to Physical Therapy [CONS] Routine Comment: Evaluate, Plan and Implement Plan of Care Reason for Consult: Evaluate, Plan and Implement Plan of Care Does patient have active BEDREST order?: No Is patient medically & hemodynamically stable?: Yes Patient assessed for mobility or mobilized this visit?: Yes Consult to Coke Crane Operator [CONS] Routine Reason for SW Consult: Discharge Planning - Constitutional Vitals: Temp Pulse Resp BP Pulse Ox 98.4 F 65 18 173/85 93 07/06/17 07:14 07/06/17 07:14 07/06/17 07:14 07/06/17 07:14 07/06/17 07:14 - Patient Status Disposition: Home Health Service Functional capacity at discharge: uses cane/walker - Discharge Instructions Follow Up With: Tania Morales MD [Primary Care Provider] - 1 week - Diet and Activity Activity: as per physical therapy Diet: advance to your usual diet
--- NOTE | 2017-07-06 09:04 | Physician Discharge Referral ---
Home Health/Hosp Referral Info Transfer to: Home Health Attending Provider: Howie Provider in Charge Post Discharge: PCP Rom) - Diagnosis (1) T12 compression fracture Priority: Primary Status: Acute (2) Hypertension Priority: Secondary Status: Chronic (3) Insomnia Priority: Secondary Status: Acute (4) Anxiety Priority: Secondary Status: Acute - Respiratory Orders Smoking Cessation: Smoking cessation has been advised. For more information, call the [place] Tobacco Quit Line at 3-590-GKVE-NOW. - Diet/Nutrition Diet/Nutrition Orders: Regular - Activity Activity Orders: Walker - Services Needed Following services are medically necessary services: Nursing, Home Health Aide, Physical Therapy, Occupational Therapy - Transfer Medications Prescriptions: Lidocaine Patch [Lidoderm 5% patch] 1 each TP DAILY #7 adh..patch Home Medications: Esomeprazole Magnesium [Nexium] 40 mg PO DAILY 05/15/15 [History] Losartan Potassium [Cozaar] 50 mg PO BID 05/15/15 [History] Atorvastatin [Lipitor] 40 mg PO HS 06/14/15 [History] Clopidogrel [Plavix] 75 mg PO DAILY 06/14/15 [History] Isosorbide MONOnitrate (24 HR) [Imdur] 30 mg PO DAILY 06/14/15 [History] ALPRAZolam [Xanax 0.25 MG Tablet] 0.25 mg PO BID PRN #120 tablet 06/24/15 [Rx] Carvedilol [Coreg] 6.25 mg PO BIDWM 365 Days tablet 06/24/15 [Rx] Gabapentin [Neurontin] 300 mg PO DAILY #0 06/24/15 [Rx] metFORMIN [Glucophage] 500 mg PO 0800 365 Days tablet 06/24/15 [Rx] HYDROcodone/Acet 5/325 mg [[place] 5-325 mg] 1 tab PO Q4H PRN #15 tab 01/01/17 [Rx ] Sertraline [Zoloft] 100 mg PO DAILY 01/01/17 [History] Tramadol HCl [Ultram] 50 mg PO BID PRN 01/01/17 [History] Acetaminophen [Tylenol] 650 mg PO Q6HR tablet 06/30/17 [Rx] Methyl Salicylate/Menthol [Bengay] 1 appl TP DAILY tube 06/30/17 [Rx] Lidocaine Patch [Lidoderm 5% patch] 1 each TP DAILY #7 adh..patch 07/06/17 [Rx] Allergies/Adverse Reactions: 3 Allergy/AdvReac Type Severity Reaction Status Date / Time lorazepam [From Ativan] AdvReac Hallucinati Verified 06/26/17 16:37 ng Certification: Further, I certify that my clinical findings support that this patient is homebound (i.e. absences from home require considerable and taxing effort and are for medical reasons or congregation services or infrequently or short duration when for other reasons) because: Homebound Reason: Leaving home requires considerable and taxing effort due to condition (Significant pain with T12 compression fracture) Attestation: My signature below is to certify that this patient is under my care and that I, or nurse practitioner, or a physician's emergency veterinary assistant working with me, has a face-to -face encounter with this patient.
[2017-07-06] MEDS: Gabapentin 300 MG CAPSULE PO SCH (09:24)
[2017-07-06] MEDS: Isosorbide MONOnitrate (24 HR) 30 MG TAB.ER.24H PO SCH (09:25)
[2017-07-06] MEDS: Methyl Salicylate/Menthol 28 GM TUBE TP SCH (09:25)
[2017-07-06] MEDS: *HR* Metformin 500 MG TABLET PO SCH (09:25)
== END 2017-07-06 13:05 | disposition home health service (06) | DRG 561 ==
LOC: INPPIK 16:14
PROVIDERS: ADMIT Internal Medicine; ATTEND Internal Medicine

== ENCOUNTER 2017-07-07 20:20 | Observation (INO) ==
--- NOTE | 2017-07-07 20:22 | Emergency Department Note ---
Disposition Clinical Impression: Intractable back pain, Failure of outpatient treatment Disposition: Admitted As Inpatient Condition: Good Back Pain HPI - General Chief Complaint: ED Back Pain/Injury Stated Complaint: back pain Time Seen by Provider: 07/07/17 20:21 Source: patient, family Mode of arrival: private vehicle Limitations: no limitations Nursing Notes Reviewed: Yes Vital Signs Reviewed: Yes - History of Present Illness HPI Narrative: Patient has a history of a fall with a thoracic CT confirmed minor T12 compression fracture. She was hospitalized from June 26 through the . She is discharged home from a swing been yesterday. She arrives back today because her "back hurts bad". She is needed help getting around anywhere in her house. Her family has been visiting to help her but she does live alone. In the last visit she tried to get from her bed to the bathroom and states she just slid down to the floor because of the degree of pain. She notes the pain is not new and is not significantly different than what she is been having. She is noted to be worse with motion or deep breathing. With breathing the pain is more towards the right side. She denies any recurrent fall or injury. She has not complained of distal numbness, tingling or weakness to any bladder or bowel incontinence. She denies groin numbness, fevers or chills. She denies other anterior chest pain, cough or shortness of breath. She had seen her primary care provider about this and was scheduled for an MRI. This was held with her recent hospitalization. At home she is continued with some BenGay , Lidoderm patches and Tylenol. This has not been adequate to her family has brought her back in for evaluation because she is unable to care for herself in independent living. Pt Subjective Complaint: back pain Onset (ago): week(s) Duration: constant Similar Symptoms Previously: Yes Location: lumbar spine, thoracic spine Pain Severity: severe Quality: sharp, dull, aching Radiation: none Improves with: immobilization Worsens with: movement, sitting upright, walking, deep breaths/cough Associated symptoms: Reports: difficulty walking. Denies: numbness, weakness, incontinence of bowel/bladder, fever, chills, abdominal pain, dysuria, hematuria Treatments prior to arrival: acetaminophen, other (Lidoderm patches) - Related Data Home Medications Medication Instructions Recorded Confirmed Esomeprazole Magnesium [Nexium] 40 mg PO DAILY 05/15/15 07/07/17 Losartan Potassium [Cozaar] 50 mg PO BID 05/15/15 07/07/17 Atorvastatin [Lipitor] 40 mg PO HS 06/14/15 07/07/17 Clopidogrel [Plavix] 75 mg PO DAILY 06/14/15 07/07/17 Isosorbide MONOnitrate (24 HR) 30 mg PO DAILY 06/14/15 07/07/17 [Imdur] Sertraline [Zoloft] 100 mg PO DAILY 01/01/17 07/07/17 Tramadol HCl [Ultram] 50 mg PO BID PRN 01/01/17 07/07/17 Primidone [Mysoline] 50 mg PO TID 07/07/17 07/07/17 Previous Rx's Medication Instructions Recorded ALPRAZolam [Xanax 0.25 MG Tablet] 0.25 mg PO BID PRN #120 tablet 06/24/15 Carvedilol [Coreg] 6.25 mg PO BIDWM 365 Days tablet 06/24/15 Gabapentin [Neurontin] 300 mg PO DAILY #0 06/24/15 metFORMIN [Glucophage] 500 mg PO 0800 365 Days tablet 06/24/15 HYDROcodone/Acet 5/325 mg [[place] 1 tab PO Q4H PRN #15 tab 01/01/17 5-325 mg] Acetaminophen [Tylenol] 650 mg PO Q6HR tablet 06/30/17 Methyl Salicylate/Menthol [Bengay] 1 appl TP DAILY tube 06/30/17 Lidocaine Patch [Lidoderm 5% patch] 1 each TP DAILY #7 adh..patch 07/06/17 Allergies Allergy/AdvReac Type Severity Reaction Status Date / Time lorazepam [From Ativan] AdvReac Hallucinati Verified 07/07/17 20:21 ng All systems ED: reviewed and negative except as stated. Past Medical History - Past Medical History Attestation: Yes The following information was validated with the patient. Source: patient, old records reviewed, obtained from family, nursing notes reviewed Medical history: Reports: arthritis, coronary artery disease, diabetes, hypertension, other Surgical history: Reports: angioplasty/stent, hysterectomy, orthopedic, other Psychiatric history: Reports: depression - Social History Smoking Status: Never smoker Smokeless Tobacco Status: No Alcohol use: Reports: rarely Drug use: Reports: none Physical Exam - General Limitations: no limitations, age General appearance: alert, anxious - Head Head exam: atraumatic, normocephalic, normal inspection - Eye Eye exam: Present: normal appearance, PERRL, EOMI. Absent: conjunctival injection - ENT ENT exam: normal exam, normal oropharynx, mucous membranes moist - Neck Neck exam: Present: normal inspection, full ROM, trachea midline - Chest Chest inspection: Present: normal inspection, symmetric chest wall rise - Respiratory Respiratory exam: Present: normal lung sounds bilaterally. Absent: respiratory distress, wheezes, prolonged expiratory phase - Cardiovascular Cardiovascular exam: Present: regular rate, normal rhythm, normal heart sounds. Absent: tachycardia - Abdominal Exam Abdominal exam: Present: soft, Non-Tender, normal bowel sounds. Absent: tenderness, distention, guarding, rebound, rigidity, pulsatile mass - Extremities Exam Extremities exam: Present: normal inspection, full ROM, normal capillary refill. Absent: tenderness, pedal edema, calf tenderness - Expanded Lower Extremity Exam Neurovascular/Tendon exam: Present: normal capillary refill. Absent: motor deficit, sensory deficit, tendon deficit Gait: antalgic - Back Exam Back exam: Present: normal inspection, tenderness (Low thoracic and upper lumbar region.). Absent: full ROM, muscle spasm, straight leg raise (R), straight leg raise (L) - Neurological Exam Neurological exam: Present: alert, oriented X3. Absent: motor sensory deficit - Psychiatric Psychiatric exam: Present: normal affect, anxious - Skin Skin exam: Present: warm, dry, intact, normal color. Absent: diaphoresis, pallor Course Course Narrative: 2024: Care is discussed with Dr. Denise who has cared for this patient for the last 10 days. He does not wish any acute testing to be performed of wishes for us to clarify with bed management or social media content manager to this patient to come back to swing bed status or if they have to be brought in as an observation period he does wish her to have some [place] for pain and continue with BenGay, Lidoderm patches and Tylenol. We are trying to clarify her status before coordinating orders. 2034: With bed management states she has to come back as an observation patient with likely evaluation by social service on Sunday to see if she qualifies for additional stay ultimately in a swing bed. Vital Signs Temperature 98.9 F 07/07/17 20:23 Pulse Rate 71 07/07/17 20:23 Respiratory Rate 16 07/07/17 20:23 Blood Pressure 173/83 07/07/17 20:23 O2 Sat by Pulse Oximetry 95 07/07/17 20:23 Temperature 98.9 F 07/07/17 21:58 Pulse Rate 77 07/07/17 21:58 Respiratory Rate 20 07/07/17 21:58 Blood Pressure 147/73 07/07/17 21:58 O2 Sat by Pulse Oximetry 93 07/07/17 22:31 Oxygen Delivery Oxygen Delivery Room Air Back Pain/Injury - Differential Diagnosis Differential Diagnosis: Likely: lumbar radiculopathy, strain of lumbar region ( Lumbar compression fracture, rib fracture) - Medical Records Medical records reviewed: Yes I reviewed the patient's medical records. CT/CT thoracic spine wo con IMPRESSION: 1. Acute minimal anterior compression deformity of T12 involving the anterior portion of the superior endplate. 2. Bony demineralization, suggesting osteoporosis given the above finding. 3. Mild to moderate thoracic spine degenerative changes. D/ / Сергей Cruz MD / Сергей Cruz MD - Radiology Data Radiology results reviewed: Yes I reviewed the patient's radiology results. 4 view x-ray is obtained of the right ribs. This does not demonstrate evidence for acute rib fracture, pneumothorax or pulmonary effusion. There is no sign for pulmonary contusion. No other acute abnormality is seen. This is on my interpretation. XR/XR ribs RT w PA CXR IMPRESSION: 1. No acute cardiopulmonary abnormality. 2. No evidence of acute displaced right rib fracture. 3. Unchanged subacute T12 compression fracture. D/ / Elia Mcnamara / Elia Mcnamara
[2017-07-07] MEDS ORDERED: *HR* HYDROcodone/Acet 5/325 mg TABLET PO ONE (20:31)
[2017-07-07] MEDS ORDERED: Naloxone 0.4 MG/ML INJ IVP PRN (21:57)
[2017-07-07] MEDS ORDERED: Dextrose Gel 15 GM/37.5 ML TUBE PO PRN ×2 (21:57)
[2017-07-07] MEDS ORDERED: Acetaminophen 325 MG TABLET PO PRN (21:57)
[2017-07-07] MEDS ORDERED: D5% in Water 1,000 ML IVC PRN (21:57)
[2017-07-07] MEDS ORDERED: ALPRAZolam 0.25 MG TABLET PO PRN (21:57)
[2017-07-07] MEDS ORDERED: *HR* HYDROcodone/Acet 5/325 mg TABLET PO PRN (21:57)
[2017-07-07] MEDS ORDERED: traMADol 50 MG TABLET PO PRN (21:57)
[2017-07-07] MEDS ORDERED: *HR* Dextrose 50 % in Water (Syg) 50 ML SYRINGE IVP PRN (21:57)
[2017-07-08 03:54] LABS: Bilirubin,Urine Small (Negative); Blood,Urine Trace-intact (Negative); Clarity,Urine Cloudy (Clear); Color,Urine Dark Yellow (Yellow); Glucose,Urine (UA) Normal (Normal); Ketones,Urine Negative (Negative); Leukocyte Esterase,Urine Trace (Negative); Nitrite,Urine Negative (Negative); Protein,Urine 30 mg/dL (Neg-Trace); Specific Gravity,Urine >= 1.030 (1.010-1.025); Urobilinogen,Urine Normal (Normal)
[2017-07-08 04:06] LABS: Hyaline Casts,Urine Few per lpf (None-Few); Squamous Epithelial Cell,Urine Many per lpf (None-Few)
[2017-07-08 04:08] LABS: Bacteria,Urine Many per hpf (None-Few); Mucus,Urine Few (Few)
[2017-07-08] MEDS ORDERED: *HR* Metformin 500 MG TABLET PO SCH (08:00)
[2017-07-08] MEDS: Insulin LISPRO 300 UNITS/3 ML VIAL SQ SCH ×3 (08:55→16:59)
[2017-07-08] MEDS ORDERED: Gabapentin 300 MG CAPSULE PO SCH (09:00)
[2017-07-08] MEDS: Methyl Salicylate/Menthol 28 GM TUBE TP SCH (10:09)
[2017-07-08] MEDS: Isosorbide MONOnitrate (24 HR) 30 MG TAB.ER.24H PO SCH (10:10)
--- NOTE | 2017-07-08 11:56 | Internal Med History&Physical ---
Date of Encounter: 07/08/17 Time of Encounter: 11:35 Assessment and Plan (1) T12 compression fracture Current visit: No Status: Acute Continue topical BenGay and Lidoderm patch with scheduled Tylenol. Will add Duragesic patch. Will order PT and OT evaluation. (2) Failure of outpatient treatment Current visit: Yes Status: Acute Social service will evaluate in a.m. for further disposition. (3) Hypertension Current visit: No Status: Chronic Continue Coreg and Cozaar Qualifiers: Hypertension type: essential hypertension Qualified Code(s): I10 - Essential (primary) hypertension (4) DM type 2 (diabetes mellitus, type 2) Current visit: No Status: Chronic Continue Glucophage Qualifiers: Diabetes mellitus fdc insulin use: without terminal superintendent use Diabetes mellitus complication status: without complication Qualified Code(s): E11.9 - Type 2 diabetes mellitus without complications Internal Medicine - H&P: HPI Chief complaint: Worsened back pain Admitted From: Emergency Dept Plans for Post Hospital Care: Home History of present illness: Ms. iPsano is a 76 year old female who came to emergency room the evening of July 07 following discharge from [facility] swing bed July 06. She complained of worsened back pain and stated she was unable to care for self at home. She was admitted to observation bed until further disposition could be obtained. She was hospitalized in acute-care at [facility] June 26- following a fall at home resulting in slight T12 compression fracture. She was discharged to swing bed for ongoing therapy needs. Her pain had gradually lessen during her stay. She continued on same medication regimen at discharge as she had received during her stay but states the pain simply worsened to the point she had to come to emergency room. Muscle skeletal history is pertinent otherwise for previous posterior lumbar spinal fusion and discectomy L3-5. She has evidence of osteoporosis on imaging studies. She has grade 1 anterolisthesis of L2 on L3. She denies gout or other bone joint or muscle disorders. Past Med Surg Social Fam HX - Past Medical History Medical history: arthritis, coronary artery disease, diabetes, hypertension, other Psychiatric history: depression - Past Surgical History Surgical History: angioplasty/stent, hysterectomy, orthopedic, other - Social History Smoking Status: Never smoker Smokeless Tobacco Status: No Alcohol use: rarely Drug use: none - Family History Mother Hx Family Endocrine Disorder: Yes (DM) Brother Hx Family Cardiac Disorders: Yes Sister Hx Family Cardiac Disorders: Yes ([place]) Internal Medicine - H&P: Meds Esomeprazole Magnesium [Nexium] 40 mg PO DAILY 05/15/15 [History] Losartan Potassium [Cozaar] 50 mg PO BID 05/15/15 [History] Atorvastatin [Lipitor] 40 mg PO HS 06/14/15 [History] Clopidogrel [Plavix] 75 mg PO DAILY 06/14/15 [History] Isosorbide MONOnitrate (24 HR) [Imdur] 30 mg PO DAILY 06/14/15 [History] ALPRAZolam [Xanax 0.25 MG Tablet] 0.25 mg PO BID PRN #120 tablet 06/24/15 [Rx] Carvedilol [Coreg] 6.25 mg PO BIDWM 365 Days tablet 06/24/15 [Rx] Gabapentin [Neurontin] 300 mg PO DAILY #0 06/24/15 [Rx] metFORMIN [Glucophage] 500 mg PO 0800 365 Days tablet 06/24/15 [Rx] HYDROcodone/Acet 5/325 mg [[place] 5-325 mg] 1 tab PO Q4H PRN #15 tab 01/01/17 [Rx ] Sertraline [Zoloft] 100 mg PO DAILY 01/01/17 [History] Tramadol HCl [Ultram] 50 mg PO BID PRN 01/01/17 [History] Acetaminophen [Tylenol] 650 mg PO Q6HR tablet 06/30/17 [Rx] Methyl Salicylate/Menthol [Bengay] 1 appl TP DAILY tube 06/30/17 [Rx] Lidocaine Patch [Lidoderm 5% patch] 1 each TP DAILY #7 adh..patch 07/06/17 [Rx] Primidone [Mysoline] 50 mg PO TID 07/07/17 [History] 3 Allergy/AdvReac Type Severity Reaction Status Date / Time lorazepam [From Ativan] AdvReac Hallucinati Verified 07/07/17 20:21 ng All Systems PM: A 10-system review of systems was performed and is negative for pertinent findings except as documented above in the HPI. Review of systems: Review of systems from her June 27 [facility] history and physical were reviewed and revised as below. Gen.: Her weight has increased from 69.003 kg on 09/04/2015 to 75.2 kg now. Cardiovascular: She has history of hypertension and known ASHD with 5 stents placed. Her most recent stent was July 2015 at [facility]. She denies heart failure [place] DVT or pulmonary embolus. Respiratory: She is a lifelong nonsmoker and has no known chronic lung disease. GI: She has GERD but denies other disorders of her liver gallbladder or exocrine pancreas. : She denies hematuria dysuria or kidney stones. Neurologic: She denies large distribution strokes or seizures. She does have DPN Endocrine: She was diagnosed with DM 2 approximately 2009. Hemoglobin A1c was 5.7% on 06/28/2017. She has hyperlipidemia but no known thyroid disease. Hematology/oncology: She denies blood disorders cancers or anemia. Psychiatric: She has anxiety and depression but denies other mental health issues Musk skeletal: As per history of present illness - Constitutional Vitals: Temp Pulse Resp BP Pulse Ox 98.3 F 67 16 145/80 94 07/08/17 11:29 07/08/17 11:29 07/08/17 11:29 07/08/17 11:29 07/08/17 11:29 Exam: Gen.: She is a well-developed well-nourished female lying in bed who appears to be in significant pain on movement HEENT: Head is atraumatic and normocephalic. Eyes: EOMI. There is no scleral icterus. Mouth: Mucosa is moist. Neck: Supple and nontender. There is no thyromegaly or adenopathy noted. Heart: Regular without murmurs gallops or ectopics Lungs: No wheezes or crackles are heard. Abdomen: Soft and nontender. No masses or guarding are noted. Extremities: There is no cyanosis edema or clubbing noted. Dorsalis pedis and posterior tibial pulses are trace to 1+ palpable bilaterally. Neurologic: Mental status: She is talkative and a good historian. Cranial nerves: Smile is symmetric. Forehead wrinkles bilaterally. Tongue protrudes midline. EOMI. Motor: There is no pronator drift. Cerebellar: Finger to nose is intact bilaterally. Skin: Warm and dry Internal Med - H&P Results - Labs Labs: Urine 07/08/17 Range/Units 03:45 Urine Color Dark Yellow (Yellow) Urine Clarity Cloudy A (Clear) Urine pH 6.0 (5.0-8.0) pH Units Ur Specific [place] >= 1.030 H (1.010-1.025) Urine Protein 30 H (Neg-Trace) mg/dL Urine Glucose (UA) Normal (Normal) mg/dL - Impressions ITS Impressions Ribs w/Chest X-Ray 07/07/17 21:57 IMPRESSION: 1. No acute cardiopulmonary abnormality. 2. No evidence of acute displaced right rib fracture. 3. Unchanged subacute T12 compression fracture. D/ / Elia Mcnamara / Elia Mcnamara Interpreting Provider: Elia Mcnamara
[2017-07-08] MEDS ORDERED: *HR* FentaNYL PATCH 12 MCG PATCH TD SCH (12:15)
[2017-07-08] MEDS: Acetaminophen 325 MG TABLET PO SCH ×3 (12:36→23:03)
[2017-07-08] MEDS: Gabapentin 300 MG CAPSULE PO SCH (20:58)
[2017-07-09] MEDS: Acetaminophen 325 MG TABLET PO SCH (06:32)
[2017-07-09] MEDS: Isosorbide MONOnitrate (24 HR) 30 MG TAB.ER.24H PO SCH (08:50)
[2017-07-09] MEDS: Gabapentin 300 MG CAPSULE PO SCH (08:50)
[2017-07-09] MEDS: Methyl Salicylate/Menthol 28 GM TUBE TP SCH (08:51)
[2017-07-09] MEDS: Insulin LISPRO 300 UNITS/3 ML VIAL SQ SCH (08:52)
[2017-07-09 10:34] VITALS: BP 131/66
--- NOTE | 2017-07-09 11:17 | Discharge Summary ---
Orders not resulted at time of discharge: Pending orders 07/09/17 09:07 BMP [Basic Metabolic Panel] Routine CBC [Complete Blood Count] [HEME] Routine Date of Encounter: 07/09/17 Time of Encounter: 11:05 - Discharge Diagnosis (1) T12 compression fracture Priority: Primary Status: Acute (2) Failure of outpatient treatment Priority: Secondary Status: Acute (3) Hypertension Priority: Secondary Status: Chronic Qualifiers: Hypertension type: essential hypertension Qualified Code(s): I10 - Essential (primary) hypertension (4) DM type 2 (diabetes mellitus, type 2) Priority: Secondary Status: Chronic Qualifiers: Diabetes mellitus extermination supervisor insulin use: without extermination supervisor use Diabetes mellitus complication status: without complication Qualified Code(s): E11.9 - Type 2 diabetes mellitus without complications Hospital course: Ms. Pisano is a 76 year old female who came to emergency room the evening of July 07 following discharge from [facility] swing bed July 06. She complained of worsened back pain and stated she was unable to care for self at home. She was admitted to observation bed until further disposition could be obtained. Initial orders were written by the emergency room physician. I saw her on July 08 and performed the history and physical. She was ordered Duragesic patch. Topical BenGay and Lidoderm patch with oral scheduled Tylenol was continued. Physical therapy and occupational therapy evaluations were done. On July 09 she was stable for transfer into swing bed where she will continue to receive therapy. - Time Spent with Patient Total time spent providing and/or coordinating discharge services: - Discharge Medications Prescriptions: FentaNYL PATCH [Duragesic] 12 mcg TD Q72H 6 Days #2 patch.td72 Home Medications: Esomeprazole Magnesium [Nexium] 40 mg PO DAILY 05/15/15 [History] Losartan Potassium [Cozaar] 50 mg PO BID 05/15/15 [History] Atorvastatin [Lipitor] 40 mg PO HS 06/14/15 [History] Clopidogrel [Plavix] 75 mg PO DAILY 06/14/15 [History] Isosorbide MONOnitrate (24 HR) [Imdur] 30 mg PO DAILY 06/14/15 [History] ALPRAZolam [Xanax 0.25 MG Tablet] 0.25 mg PO BID PRN #120 tablet 06/24/15 [Rx] Carvedilol [Coreg] 6.25 mg PO BIDWM 365 Days tablet 06/24/15 [Rx] Gabapentin [Neurontin] 300 mg PO DAILY #0 06/24/15 [Rx] metFORMIN [Glucophage] 500 mg PO 0800 365 Days tablet 06/24/15 [Rx] HYDROcodone/Acet 5/325 mg [[place] 5-325 mg] 1 tab PO Q4H PRN #15 tab 01/01/17 [Rx ] Sertraline [Zoloft] 100 mg PO DAILY 01/01/17 [History] Tramadol HCl [Ultram] 50 mg PO BID PRN 01/01/17 [History] Acetaminophen [Tylenol] 650 mg PO Q6HR tablet 06/30/17 [Rx] Methyl Salicylate/Menthol [Bengay] 1 appl TP DAILY tube 06/30/17 [Rx] Lidocaine Patch [Lidoderm 5% patch] 1 each TP DAILY #7 adh..patch 07/06/17 [Rx] Primidone [Mysoline] 50 mg PO TID 07/07/17 [History] FentaNYL PATCH [Duragesic] 12 mcg TD Q72H 6 Days #2 patch.td72 07/09/17 [Rx] Allergies/Adverse Reactions: 3 Allergy/AdvReac Type Severity Reaction Status Date / Time lorazepam [From Ativan] AdvReac Hallucinati Verified 07/07/17 20:21 ng Date of admission: 07/07/17 20:56 Primary care physician: Tania Morales Consults: 07/08/17 12:04 Consult to Occupational Therapy [CONS] Routine Comment: Evaluate, develop and implement POC Reason for Consult: Back pain Does patient have active BEDREST order?: No Is patient medically & hemodynamically stable?: Yes Patient assessed for mobility or mobilized this visit?: Yes Consult to Physical Therapy [CONS] Routine Comment: Evaluate, develop and implement POC Reason for Consult: Back pain Does patient have active BEDREST order?: No Is patient medically & hemodynamically stable?: Yes Patient assessed for mobility or mobilized this visit?: Yes - Constitutional Vitals: Temp Pulse Resp BP Pulse Ox 98.1 F 68 18 131/66 94 07/09/17 10:33 07/09/17 10:33 07/09/17 10:33 07/09/17 10:33 07/09/17 10:33 - Patient Status Disposition: Transfer Hospital Swing Bed Condition: Good - Discharge Instructions - Diet and Activity Activity: as per physical therapy Diet: advance to your usual diet
[2017-07-09 11:32] LABS: Basophils # 0.1 K/mcL (0.0-0.2); Basophils % 0.8 %; Eosinophils # 0.2 K/mcL (0.0-0.6); Eosinophils % 2.4 %; Hematocrit 34.7 % (35.3-44.9); Hemoglobin 11.9 g/dL (11.5-15.4); Immature Granulocytes % 0.3 % (0-4); Lymphocytes # 2.5 K/mcL (0.6-4.6); Lymphocytes % 34.4 %; Mean Corpuscular HGB Conc 34.3 g/dL (31.6-35.5); Mean Corpuscular Hemoglobin 30.9 pg (28.0-33.3); Mean Corpuscular Volume 90.1 fL (83.0-100.0); Mean Platelet Volume 9.4 fL (9.4-12.4); Monocytes # 0.5 K/mcL (0.0-1.3); Monocytes % 7.1 %; Neutrophils # 4.1 K/mcL (1.6-8.9); Platelet Count 365 K/mcL (140-400); Red Blood Count 3.85 M/mcL (3.82-4.97); Red Cell Distribution Width 12.7 % (11.5-14.5)
[2017-07-09 11:42] LABS: BUN/Creatinine Ratio 27 (6-26); Blood Urea Nitrogen 24 mg/dL (8-23); Calcium 8.9 mg/dL (8.6-10.3); Carbon Dioxide 29 mEq/L (23-29); Chloride 103 mEq/L (98-107); Glucose 128 mg/dL (70-105); Osmolality,Calculated 294 (280-300); Sodium 139 mEq/L (136-145); eGFR For African Americans > 60 (> 60); eGFR For Non-African Americans > 60 (> 60)
== END 2017-07-09 11:19 | disposition other institution (70) ==
LOC: INPPIK 20:20 → EMEROOPIK 20:20 → INPPIK 21:25
PROVIDERS: ADMIT Internal Medicine; ATTEND Internal Medicine

== ENCOUNTER 2017-07-09 12:19 | Inpatient (IN) ==
[2017-07-09] MEDS: *HR* HYDROcodone/Acet 5/325 mg TABLET PO PRN (13:54)
[2017-07-09] MEDS ORDERED: *HR* Dextrose 50 % in Water (Syg) 50 ML SYRINGE IVP PRN (17:31)
[2017-07-09] MEDS ORDERED: Dextrose Gel 15 GM/37.5 ML TUBE PO PRN ×2 (17:31)
[2017-07-09] MEDS ORDERED: D5% in Water 1,000 ML IVC PRN (17:31)
[2017-07-09] MEDS: Primidone 50 MG TABLET PO SCH (17:35)
[2017-07-09] MEDS: Acetaminophen 325 MG TABLET PO SCH ×2 (17:35→23:27)
[2017-07-09] MEDS: Gabapentin 300 MG CAPSULE PO SCH (20:41)
[2017-07-09] MEDS: ALPRAZolam 0.25 MG TABLET PO PRN (20:47)
[2017-07-09] MEDS: Insulin LISPRO 300 UNITS/3 ML VIAL SQ SCH (21:56)
[2017-07-10] MEDS: Acetaminophen 325 MG TABLET PO SCH ×4 (06:15→23:55)
[2017-07-10] MEDS: Insulin LISPRO 300 UNITS/3 ML VIAL SQ SCH ×4 (07:31→19:27)
[2017-07-10] MEDS: *HR* Metformin 500 MG TABLET PO SCH (07:46)
[2017-07-10] MEDS: Methyl Salicylate/Menthol 28 GM TUBE TP SCH (08:49)
[2017-07-10] MEDS: Gabapentin 300 MG CAPSULE PO SCH ×2 (08:52→19:26)
[2017-07-10] MEDS: Isosorbide MONOnitrate (24 HR) 30 MG TAB.ER.24H PO SCH (08:52)
[2017-07-10] MEDS: Primidone 50 MG TABLET PO SCH ×2 (08:53→17:31)
[2017-07-10] MEDS ORDERED: NON-FORMULARY MEDICATION 1 EACH EACH (Gabapentin [Neurontin] 300 MG) PO SCH (09:00)
--- NOTE | 2017-07-10 12:28 | Internal Med Progress Note ---
Date of Encounter: 07/10/17 Time of Encounter: 12:22 - Assessment and plan (1) T12 compression fracture Current Visit: No Status: Acute Assessment and plan: July 10. Continue BenGay, Lidoderm, and scheduled Tylenol and Duragesic. (2) Tremor Current Visit: Yes Status: Acute Assessment and plan: July 10. Continue Mysoline (3) DM type 2 (diabetes mellitus, type 2) Current Visit: No Status: Chronic Assessment and plan: July 10. Continue Glucophage and Accu-Cheks with SSI. Qualifiers: Diabetes mellitus intermediate project manager insulin use: without chcf use Diabetes mellitus complication status: without complication Qualified Code(s): E11.9 - Type 2 diabetes mellitus without complications (4) Hypertension Current Visit: No Status: Chronic Assessment and plan: July 10. Will increase dose of Coreg since blood pressures remain elevated. Qualifiers: Hypertension type: essential hypertension Qualified Code(s): I10 - Essential (primary) hypertension (5) Anxiety Current Visit: No Status: Acute Assessment and plan: July 10. Continue Xanax as needed. - Subjective Interval history: July 10. She was hospitalized in observation July 07 after presenting to ER with worsening back pain at home. She had PT and OT evaluations and was readmitted to swing bed to continue therapy. Duragesic patch was added. She has no new complaints today. - Constitutional Vitals: Temp Pulse Resp BP Pulse Ox 98.3 F 74 16 161/72 95 07/10/17 11:37 07/10/17 11:37 07/10/17 11:37 07/10/17 11:37 07/10/17 11:37 Exam: She is ambulating in the room with her wheeled walker. She appears in minimal/ mild pain while walking. I reviewed her medications and past lab results. - VTE Documentation of Mechanical Device: Graduated compression elastic hosiery Consult Discharge Plan - Plan Referrals: Tania Morales MD [Primary Care Provider] - 1 week
[2017-07-10] MEDS: ALPRAZolam 0.25 MG TABLET PO PRN (19:26)
[2017-07-11] MEDS: Acetaminophen 325 MG TABLET PO SCH ×4 (05:45→23:34)
[2017-07-11] MEDS: Methyl Salicylate/Menthol 28 GM TUBE TP SCH (10:27)
[2017-07-11] MEDS: Primidone 50 MG TABLET PO SCH ×2 (10:28→17:09)
[2017-07-11] MEDS: *HR* Metformin 500 MG TABLET PO SCH (10:28)
[2017-07-11] MEDS: Gabapentin 300 MG CAPSULE PO SCH ×2 (10:28→20:51)
[2017-07-11] MEDS: Insulin LISPRO 300 UNITS/3 ML VIAL SQ SCH ×4 (10:29→19:39)
[2017-07-11] MEDS: Isosorbide MONOnitrate (24 HR) 30 MG TAB.ER.24H PO SCH (10:29)
[2017-07-11] MEDS: *HR* FentaNYL PATCH 12 MCG PATCH TD SCH (12:09)
[2017-07-11] MEDS: *HR* HYDROcodone/Acet 5/325 mg TABLET PO PRN ×2 (12:26→20:51)
[2017-07-11] MEDS: ALPRAZolam 0.25 MG TABLET PO PRN (20:52)
[2017-07-12] MEDS: *HR* HYDROcodone/Acet 5/325 mg TABLET PO PRN ×5 (01:00→21:30)
[2017-07-12] MEDS: Acetaminophen 325 MG TABLET PO SCH ×3 (05:40→16:43)
[2017-07-12] MEDS: Insulin LISPRO 300 UNITS/3 ML VIAL SQ SCH ×4 (08:30→21:32)
[2017-07-12] MEDS: Gabapentin 300 MG CAPSULE PO SCH ×2 (09:25→20:10)
[2017-07-12] MEDS: Isosorbide MONOnitrate (24 HR) 30 MG TAB.ER.24H PO SCH (09:26)
[2017-07-12] MEDS: *HR* Metformin 500 MG TABLET PO SCH (09:26)
[2017-07-12] MEDS: Primidone 50 MG TABLET PO SCH ×2 (09:27→16:44)
[2017-07-12] MEDS: Methyl Salicylate/Menthol 28 GM TUBE TP SCH (09:32)
--- NOTE | 2017-07-12 12:52 | Internal Med Progress Note ---
Date of Encounter: 07/12/17 Time of Encounter: 12:42 - Assessment and plan (1) T12 compression fracture Current Visit: No Status: Acute Assessment and plan: July 10. Continue BenGay, Lidoderm, and scheduled Tylenol and Duragesic. (2) Tremor Current Visit: Yes Status: Acute Assessment and plan: July 10. Continue Mysoline (3) DM type 2 (diabetes mellitus, type 2) Current Visit: No Status: Chronic Assessment and plan: July 10. Continue Glucophage and Accu-Cheks with SSI. Qualifiers: Diabetes mellitus buttermaker continuous churn insulin use: without skilled nursing use Diabetes mellitus complication status: without complication Qualified Code(s): E11.9 - Type 2 diabetes mellitus without complications (4) Hypertension Current Visit: No Status: Chronic Assessment and plan: July 10. Will increase dose of Coreg since blood pressures remain elevated. July 12. Will further increase Coreg since blood pressures remain significantly elevated. Qualifiers: Hypertension type: essential hypertension Qualified Code(s): I10 - Essential (primary) hypertension (5) Anxiety Current Visit: No Status: Acute Assessment and plan: July 10. Continue Xanax as needed. - Subjective Interval history: July 10. She was hospitalized in observation July 07 after presenting to ER with worsening back pain at home. She had PT and OT evaluations and was readmitted to swing bed to continue therapy. Duragesic patch was added. She has no new complaints today. July 12. She has no new complaints and states she feels significantly better. - Constitutional Vitals: Temp Pulse Resp BP Pulse Ox 98.4 F 57 18 166/96 96 07/12/17 06:45 07/12/17 06:45 07/12/17 06:45 07/12/17 06:45 07/12/17 06:45 Exam: She is resting comfortably in bed and appears in no acute distress. Her affect is bright and cheerful. I reviewed her medications and lab results. - VTE Documentation of Mechanical Device: Graduated compression elastic hosiery Consult Discharge Plan - Plan Referrals: Tania Morales MD [Primary Care Provider] - 1 week
[2017-07-12] MEDS: ALPRAZolam 0.25 MG TABLET PO PRN ×2 (13:49→21:30)
[2017-07-13] MEDS: Acetaminophen 325 MG TABLET PO SCH ×4 (00:51→17:36)
[2017-07-13] MEDS: Insulin LISPRO 300 UNITS/3 ML VIAL SQ SCH ×2 (07:20→17:03)
[2017-07-13] MEDS: *HR* Metformin 500 MG TABLET PO SCH (07:46)
[2017-07-13] MEDS: Isosorbide MONOnitrate (24 HR) 30 MG TAB.ER.24H PO SCH (08:30)
[2017-07-13] MEDS: Gabapentin 300 MG CAPSULE PO SCH ×2 (08:30→20:56)
[2017-07-13] MEDS: Primidone 50 MG TABLET PO SCH ×2 (08:31→17:37)
[2017-07-13] MEDS: Methyl Salicylate/Menthol 28 GM TUBE TP SCH (08:32)
[2017-07-13] MEDS: ALPRAZolam 0.25 MG TABLET PO PRN (20:56)
[2017-07-13] MEDS: *HR* HYDROcodone/Acet 5/325 mg TABLET PO PRN (20:56)
[2017-07-14] MEDS: Insulin LISPRO 300 UNITS/3 ML VIAL SQ SCH ×4 (04:29→16:43)
[2017-07-14] MEDS: Acetaminophen 325 MG TABLET PO SCH ×4 (04:29→17:23)
[2017-07-14] MEDS: *HR* Metformin 500 MG TABLET PO SCH (09:33)
[2017-07-14] MEDS: Gabapentin 300 MG CAPSULE PO SCH ×2 (09:34→20:47)
[2017-07-14] MEDS: Isosorbide MONOnitrate (24 HR) 30 MG TAB.ER.24H PO SCH (09:34)
[2017-07-14] MEDS: Methyl Salicylate/Menthol 28 GM TUBE TP SCH (09:35)
[2017-07-14] MEDS: ALPRAZolam 0.25 MG TABLET PO PRN ×2 (09:35→20:48)
[2017-07-14] MEDS: Primidone 50 MG TABLET PO SCH ×2 (09:38→17:23)
[2017-07-14] MEDS: *HR* FentaNYL PATCH 12 MCG PATCH TD SCH (13:11)
--- NOTE | 2017-07-14 15:42 | Internal Med Progress Note ---
Date of Encounter: 07/14/17 Time of Encounter: 14:40 - Assessment and plan (1) T12 compression fracture Current Visit: No Status: Acute Assessment and plan: July 10. Continue BenGay, Lidoderm, and scheduled Tylenol and Duragesic. (2) Tremor Current Visit: Yes Status: Acute Assessment and plan: July 10. Continue Mysoline (3) DM type 2 (diabetes mellitus, type 2) Current Visit: No Status: Chronic Assessment and plan: July 10. Continue Glucophage and Accu-Cheks with SSI. Qualifiers: Diabetes mellitus termite control service representative insulin use: without shelter use Diabetes mellitus complication status: without complication Qualified Code(s): E11.9 - Type 2 diabetes mellitus without complications (4) Hypertension Current Visit: No Status: Chronic Assessment and plan: July 10. Will increase dose of Coreg since blood pressures remain elevated. July 12. Will further increase Coreg since blood pressures remain significantly elevated. July 14. Will start amlodipine since blood pressures still above desirable level. Continue Coreg and Cozaar. Qualifiers: Hypertension type: essential hypertension Qualified Code(s): I10 - Essential (primary) hypertension (5) Anxiety Current Visit: No Status: Acute Assessment and plan: July 10. Continue Xanax as needed. - Subjective Interval history: July 10. She was hospitalized in observation July 07 after presenting to ER with worsening back pain at home. She had PT and OT evaluations and was readmitted to swing bed to continue therapy. Duragesic patch was added. She has no new complaints today. July 12. She has no new complaints and states she feels significantly better. July 14. She has no new complaints. She states she is able to get out of bed and ambulate without assistance. Her back pain has lessened. - Constitutional Vitals: Temp Pulse Resp BP Pulse Ox 98.2 F 60 18 164/68 94 07/14/17 07:05 07/14/17 09:29 07/14/17 07:05 07/14/17 09:29 07/14/17 09:29 Exam: She is resting comfortably in bed and appears in no acute distress. Her affect is bright and cheerful. I reviewed her medications and past lab results. - VTE Documentation of Mechanical Device: Graduated compression elastic hosiery Consult Discharge Plan - Plan Referrals: Tania Morales MD [Primary Care Provider] - 1 week
[2017-07-14] MEDS: *HR* HYDROcodone/Acet 5/325 mg TABLET PO PRN (20:47)
[2017-07-15] MEDS: Insulin LISPRO 300 UNITS/3 ML VIAL SQ SCH ×4 (01:32→17:37)
[2017-07-15] MEDS: Acetaminophen 325 MG TABLET PO SCH ×4 (01:34→17:38)
[2017-07-15] MEDS: *HR* HYDROcodone/Acet 5/325 mg TABLET PO PRN ×3 (08:47→20:46)
[2017-07-15] MEDS: Gabapentin 300 MG CAPSULE PO SCH ×2 (08:48→20:46)
[2017-07-15] MEDS: *HR* Metformin 500 MG TABLET PO SCH (08:48)
[2017-07-15] MEDS: Isosorbide MONOnitrate (24 HR) 30 MG TAB.ER.24H PO SCH (08:49)
[2017-07-15] MEDS: Methyl Salicylate/Menthol 28 GM TUBE TP SCH (08:51)
[2017-07-15] MEDS: ALPRAZolam 0.25 MG TABLET PO PRN ×3 (08:51→22:15)
[2017-07-15] MEDS: Primidone 50 MG TABLET PO SCH ×2 (08:51→17:38)
[2017-07-16] MEDS: Insulin LISPRO 300 UNITS/3 ML VIAL SQ SCH ×5 (01:11→22:08)
[2017-07-16] MEDS: Acetaminophen 325 MG TABLET PO SCH ×4 (01:11→17:08)
[2017-07-16] MEDS: Primidone 50 MG TABLET PO SCH ×2 (08:40→17:05)
[2017-07-16] MEDS: *HR* Metformin 500 MG TABLET PO SCH (08:41)
[2017-07-16] MEDS: Isosorbide MONOnitrate (24 HR) 30 MG TAB.ER.24H PO SCH (08:42)
[2017-07-16] MEDS: Gabapentin 300 MG CAPSULE PO SCH ×2 (08:42→20:59)
[2017-07-16] MEDS: Methyl Salicylate/Menthol 28 GM TUBE TP SCH (08:50)
--- NOTE | 2017-07-16 12:41 | Internal Med Progress Note ---
Date of Encounter: 07/16/17 Time of Encounter: 12:34 - Assessment and plan (1) T12 compression fracture Current Visit: No Status: Acute Assessment and plan: July 10. Continue BenGay, Lidoderm, and scheduled Tylenol and Duragesic. July 16. Pain has lessened. Anticipate discharge home 07/18/2017. (2) Tremor Current Visit: Yes Status: Acute Assessment and plan: July 10. Continue Mysoline (3) DM type 2 (diabetes mellitus, type 2) Current Visit: No Status: Chronic Assessment and plan: July 10. Continue Glucophage and Accu-Cheks with SSI. Qualifiers: Diabetes mellitus prison insulin use: without prison use Diabetes mellitus complication status: without complication Qualified Code(s): E11.9 - Type 2 diabetes mellitus without complications (4) Hypertension Current Visit: No Status: Chronic Assessment and plan: July 10. Will increase dose of Coreg since blood pressures remain elevated. July 12. Will further increase Coreg since blood pressures remain significantly elevated. July 14. Will start amlodipine since blood pressures still above desirable level. Continue Coreg and Cozaar. July 16. Blood pressures improved. Continue amlodipine, Coreg, and Cozaar Qualifiers: Hypertension type: essential hypertension Qualified Code(s): I10 - Essential (primary) hypertension (5) Anxiety Current Visit: No Status: Acute Assessment and plan: July 10. Continue Xanax as needed. - Subjective Interval history: July 10. She was hospitalized in observation July 07 after presenting to ER with worsening back pain at home. She had PT and OT evaluations and was readmitted to swing bed to continue therapy. Duragesic patch was added. She has no new complaints today. July 12. She has no new complaints and states she feels significantly better. July 14. She has no new complaints. She states she is able to get out of bed and ambulate without assistance. Her back pain has lessened. July 16. She has no new complaints. - Constitutional Vitals: Temp Pulse Resp BP Pulse Ox 98.1 F 58 19 143/68 93 07/16/17 06:32 07/16/17 06:32 07/16/17 06:32 07/16/17 06:32 07/16/17 06:32 Exam: She is resting comfortably in bed and appears in no acute distress. Her affect is bright and cheerful. I reviewed her medications and lab results. - VTE Documentation of Mechanical Device: Graduated compression elastic hosiery Consult Discharge Plan - Plan Referrals: Tania Morales MD [Primary Care Provider] - 1 week
[2017-07-16] MEDS: traMADol 50 MG TABLET PO PRN (13:50)
[2017-07-16] MEDS: ALPRAZolam 0.25 MG TABLET PO PRN (20:59)
[2017-07-16] MEDS: *HR* HYDROcodone/Acet 5/325 mg TABLET PO PRN (22:06)
[2017-07-17] MEDS: Acetaminophen 325 MG TABLET PO SCH ×4 (01:10→16:43)
[2017-07-17] MEDS: Isosorbide MONOnitrate (24 HR) 30 MG TAB.ER.24H PO SCH (09:57)
[2017-07-17] MEDS: Gabapentin 300 MG CAPSULE PO SCH ×2 (09:57→20:35)
[2017-07-17] MEDS: *HR* Metformin 500 MG TABLET PO SCH (09:58)
[2017-07-17] MEDS: Primidone 50 MG TABLET PO SCH ×2 (10:00→16:41)
[2017-07-17] MEDS: Methyl Salicylate/Menthol 28 GM TUBE TP SCH (10:07)
[2017-07-17] MEDS: Insulin LISPRO 300 UNITS/3 ML VIAL SQ SCH ×4 (10:07→20:34)
[2017-07-17] MEDS: *HR* FentaNYL PATCH 12 MCG PATCH TD SCH (13:23)
[2017-07-17] MEDS: traMADol 50 MG TABLET PO PRN (16:43)
[2017-07-17] MEDS: ALPRAZolam 0.25 MG TABLET PO PRN (20:35)
[2017-07-18] MEDS: Acetaminophen 325 MG TABLET PO SCH ×2 (01:06→06:32)
[2017-07-18 07:08] VITALS: BP 128/58
[2017-07-18] MEDS: Methyl Salicylate/Menthol 28 GM TUBE TP SCH (07:32)
[2017-07-18] MEDS: Insulin LISPRO 300 UNITS/3 ML VIAL SQ SCH (07:32)
[2017-07-18] MEDS: Isosorbide MONOnitrate (24 HR) 30 MG TAB.ER.24H PO SCH (09:58)
[2017-07-18] MEDS: Gabapentin 300 MG CAPSULE PO SCH (09:58)
[2017-07-18] MEDS: *HR* Metformin 500 MG TABLET PO SCH (09:58)
[2017-07-18] MEDS: Primidone 50 MG TABLET PO SCH (09:59)
--- NOTE | 2017-07-18 10:01 | Discharge Summary ---
Date of Encounter: 07/18/17 Time of Encounter: 09:50 - Discharge Diagnosis (1) T12 compression fracture Priority: Primary Status: Acute (2) Tremor Priority: Secondary Status: Acute (3) DM type 2 (diabetes mellitus, type 2) Priority: Secondary Status: Chronic Qualifiers: Diabetes mellitus mcfp insulin use: without mcfp use Diabetes mellitus complication status: without complication Qualified Code(s): E11.9 - Type 2 diabetes mellitus without complications (4) Hypertension Priority: Secondary Status: Chronic Qualifiers: Hypertension type: essential hypertension Qualified Code(s): I10 - Essential (primary) hypertension (5) Anxiety Priority: Secondary Status: Acute Hospital course: Ms. Pisano is a 76 year old female who was hospitalized in observation July 07 - after presenting to ER with worsening back pain at home. She had PT and OT evaluations and was readmitted to swing bed to continue therapy. She made satisfactory progress during her swing bed stay. Her analgesics were continued and she had gradual decrease in her level of pain. There were no new problems and on July 18 she was stable for discharge home. She will follow with her PCP Dr. Morales within 1 week. - Time Spent with Patient Total time spent providing and/or coordinating discharge services: - Discharge Medications Prescriptions: FentaNYL PATCH [Duragesic] 12 mcg TD Q72H 6 Days #2 patch.td72 Home Medications: Esomeprazole Magnesium [Nexium] 40 mg PO DAILY 05/15/15 [History] Losartan Potassium [Cozaar] 50 mg PO BID 05/15/15 [History] Atorvastatin [Lipitor] 40 mg PO HS 06/14/15 [History] Clopidogrel [Plavix] 75 mg PO DAILY 06/14/15 [History] Isosorbide MONOnitrate (24 HR) [Imdur] 30 mg PO DAILY 06/14/15 [History] ALPRAZolam [Xanax 0.25 MG Tablet] 0.25 mg PO BID PRN #120 tablet 06/24/15 [Rx] Carvedilol [Coreg] 6.25 mg PO BIDWM 365 Days tablet 06/24/15 [Rx] Gabapentin [Neurontin] 300 mg PO DAILY #0 06/24/15 [Rx] metFORMIN [Glucophage] 500 mg PO 0800 365 Days tablet 06/24/15 [Rx] HYDROcodone/Acet 5/325 mg [[place] 5-325 mg] 1 tab PO Q4H PRN #15 tab 01/01/17 [Rx ] Sertraline [Zoloft] 100 mg PO DAILY 01/01/17 [History] Tramadol HCl [Ultram] 50 mg PO BID PRN 01/01/17 [History] Acetaminophen [Tylenol] 650 mg PO Q6HR tablet 06/30/17 [Rx] Methyl Salicylate/Menthol [Bengay] 1 appl TP DAILY tube 06/30/17 [Rx] Lidocaine Patch [Lidoderm 5% patch] 1 each TP DAILY #7 adh..patch 07/06/17 [Rx] Primidone [Mysoline] 50 mg PO TID 07/07/17 [History] FentaNYL PATCH [Duragesic] 12 mcg TD Q72H 6 Days #2 patch.td72 07/18/17 [Rx] Allergies/Adverse Reactions: 3 Allergy/AdvReac Type Severity Reaction Status Date / Time lorazepam [From Ativan] AdvReac Hallucinati Verified 07/07/17 20:21 ng Date of admission: 07/09/17 12:30 Primary care physician: Tania Morales Consults: 07/09/17 12:53 Consult to Occupational Therapy [CONS] Routine Comment: Evaluate, Develop, and Implement Plan of Care Reason for Consult: Evaluate, Develop, and Implement Plan of Care Does patient have active BEDREST order?: No Is patient medically & hemodynamically stable?: Yes Patient assessed for mobility or mobilized this visit?: Yes Consult to Physical Therapy [CONS] Routine Comment: Evaluate, Develop, and Implement Plan of Care Reason for Consult: Evaluate, Develop, and Implement Plan of Care Does patient have active BEDREST order?: No Is patient medically & hemodynamically stable?: Yes Patient assessed for mobility or mobilized this visit?: Yes Consult to Composition Floor Setter [CONS] Routine Reason for SW Consult: Discharge Planning - Constitutional Vitals: Temp Pulse Resp BP Pulse Ox 97.8 F 53 19 128/58 94 07/18/17 06:10 07/18/17 06:10 07/18/17 06:10 07/18/17 06:10 07/17/17 23:03 - Patient Status Disposition: Home Health Service Functional capacity at discharge: uses cane/walker Overall status at discharge: patient is progressing back to baseline - Discharge Instructions Follow Up With: Tania Morales MD [Primary Care Provider] - 1 week - Diet and Activity Activity: as per physical therapy Diet: advance to your usual diet - VTE Documentation of Mechanical Device: Graduated compression elastic hosiery
--- NOTE | 2017-07-18 10:04 | Physician Discharge Referral ---
Home Health/Hosp Referral Info Transfer to: Home Health Attending Provider: Howie Provider in Charge Post Discharge: PCP Rom) - Diagnosis (1) T12 compression fracture Priority: Primary Status: Acute (2) Tremor Priority: Secondary Status: Acute (3) DM type 2 (diabetes mellitus, type 2) Priority: Secondary Status: Chronic (4) Hypertension Priority: Secondary Status: Chronic (5) Anxiety Priority: Secondary Status: Acute - Respiratory Orders Smoking Cessation: Smoking cessation has been advised. For more information, call the [place] Tobacco Quit Line at 1-300-GVUZ-NOW. - Diet/Nutrition Diet/Nutrition Orders: No Concentrated Sweets - Activity Activity Orders: Walker - Services Needed Following services are medically necessary services: Nursing, Home Health Aide, Physical Therapy, Occupational Therapy - Transfer Medications Prescriptions: FentaNYL PATCH [Duragesic] 12 mcg TD Q72H 6 Days #2 patch.td72 Home Medications: Esomeprazole Magnesium [Nexium] 40 mg PO DAILY 05/15/15 [History] Losartan Potassium [Cozaar] 50 mg PO BID 05/15/15 [History] Atorvastatin [Lipitor] 40 mg PO HS 06/14/15 [History] Clopidogrel [Plavix] 75 mg PO DAILY 06/14/15 [History] Isosorbide MONOnitrate (24 HR) [Imdur] 30 mg PO DAILY 06/14/15 [History] ALPRAZolam [Xanax 0.25 MG Tablet] 0.25 mg PO BID PRN #120 tablet 06/24/15 [Rx] Carvedilol [Coreg] 6.25 mg PO BIDWM 365 Days tablet 06/24/15 [Rx] Gabapentin [Neurontin] 300 mg PO DAILY #0 06/24/15 [Rx] metFORMIN [Glucophage] 500 mg PO 0800 365 Days tablet 06/24/15 [Rx] HYDROcodone/Acet 5/325 mg [[place] 5-325 mg] 1 tab PO Q4H PRN #15 tab 01/01/17 [Rx ] Sertraline [Zoloft] 100 mg PO DAILY 01/01/17 [History] Tramadol HCl [Ultram] 50 mg PO BID PRN 01/01/17 [History] Acetaminophen [Tylenol] 650 mg PO Q6HR tablet 06/30/17 [Rx] Methyl Salicylate/Menthol [Bengay] 1 appl TP DAILY tube 06/30/17 [Rx] Lidocaine Patch [Lidoderm 5% patch] 1 each TP DAILY #7 adh..patch 07/06/17 [Rx] Primidone [Mysoline] 50 mg PO TID 07/07/17 [History] FentaNYL PATCH [Duragesic] 12 mcg TD Q72H 6 Days #2 patch.td72 07/18/17 [Rx] Allergies/Adverse Reactions: 3 Allergy/AdvReac Type Severity Reaction Status Date / Time lorazepam [From Ativan] AdvReac Hallucinati Verified 07/07/17 20:21 ng Certification: Further, I certify that my clinical findings support that this patient is homebound (i.e. absences from home require considerable and taxing effort and are for medical reasons or taoism services or infrequently or short duration when for other reasons) because: Homebound Reason: Leaving home requires considerable and taxing effort due to condition (T12 compression fracture, tremor) Attestation: My signature below is to certify that this patient is under my care and that I, or nurse practitioner, or a physician's environmental emergencies assistant working with me, has a face-to -face encounter with this patient.
== END 2017-07-18 11:14 | disposition home health service (06) | DRG 561 ==
LOC: INPPIK 12:30
PROVIDERS: ADMIT Internal Medicine; ATTEND Internal Medicine

== ENCOUNTER 2017-12-06 17:05 | Inpatient (IN) ==
--- NOTE | 2017-12-06 17:31 | Emergency Department Note ---
Disposition Clinical Impression: Weakness, Elevated troponin, Fall, Dehydration Disposition: Admitted As Inpatient Condition: Good General Adult HPI - General Chief complaint: ED General Medical Stated complaint: Been in bathtub since Sunday evening Time Seen by Provider: 12/06/17 17:05 Source: patient Mode of arrival: EMS Limitations: no limitations Nursing Notes Reviewed: Yes Vital Signs Reviewed: Yes - History of Present Illness HPI Narrative: Patient says she was stuck in the bathtub for several days. She thinks today is Sunday however she took a bath on Sunday and today is so she is a little bit bathtub for less than 24 hours she complains of a headache and her back is sore where she has been trying to get out of the tub. Daughter says found mom on the floor in the bathroom very clammy. Last time she was seen was Sunday night. She has been getting more confused as of late. She has really gone downhill last month or 2. She is been more weak and just not acting like herself her daughters also noted to be bedsores on her backside. Onset (ago): day(s) (1) Location: head Radiation: non-radiation Pain Severity: mild Quality: aching Consistency: constant Improves with: nothing Worsens with: nothing Associated symptoms: Reports: denies other symptoms - Related Data Home Medications Medication Instructions Recorded Confirmed Esomeprazole Magnesium [Nexium] 40 mg PO DAILY 05/15/15 12/06/17 Losartan Potassium [Cozaar] 50 mg PO BID 05/15/15 12/06/17 Atorvastatin [Lipitor] 40 mg PO HS 06/14/15 12/06/17 Clopidogrel [Plavix] 75 mg PO DAILY 06/14/15 12/06/17 Isosorbide MONOnitrate (24 HR) 30 mg PO DAILY 06/14/15 12/06/17 [Imdur] Sertraline [Zoloft] 100 mg PO DAILY 01/01/17 12/06/17 Tramadol HCl [Ultram] 50 mg PO BID PRN 01/01/17 12/06/17 Primidone [Mysoline] 50 mg PO TID 07/07/17 12/06/17 Previous Rx's Medication Instructions Recorded ALPRAZolam [Xanax 0.25 MG Tablet] 0.25 mg PO BID PRN #120 tablet 06/24/15 Carvedilol [Coreg] 6.25 mg PO BIDWM 365 Days tablet 06/24/15 Gabapentin [Neurontin] 300 mg PO DAILY #0 06/24/15 metFORMIN [Glucophage] 500 mg PO 0800 365 Days tablet 06/24/15 HYDROcodone/Acet 5/325 mg [[place] 1 tab PO Q4H PRN #15 tab 01/01/17 5-325 mg] Acetaminophen [Tylenol] 650 mg PO Q6HR tablet 06/30/17 Methyl Salicylate/Menthol [Bengay] 1 appl TP DAILY tube 06/30/17 Lidocaine Patch [Lidoderm 5% patch] 1 each TP DAILY #7 adh..patch 07/06/17 FentaNYL PATCH [Duragesic] 12 mcg TD Q72H 6 Days #2 patch.td72 07/18/17 Allergies Allergy/AdvReac Type Severity Reaction Status Date / Time lorazepam [From Ativan] AdvReac Hallucinati Verified 07/07/17 20:21 ng All systems ED: reviewed and negative except as stated. Review of Systems: As Per HPI Constitutional: Denies: fever, chills, weakness, weight change Eyes: Denies: eye pain, eye discharge, vision change ENT ED: Denies: ear pain, throat pain, dental pain, hearing loss, epistaxis, congestion, dysphagia Cardiovascular: Denies: chest pain, palpitations, dyspnea on exertion, edema, syncope Respiratory: Denies: cough, dyspnea, wheezes, hemoptysis, stridor Gastrointestinal: Denies: abdominal pain, nausea, vomiting, diarrhea, constipation, hematemesis, melena, hematochezia Genitourinary: Denies: dysuria, frequency, hematuria, discharge Musculoskeletal: Reports: as per HPI, back pain Integumentary: Denies: rash, abrasion, lesions Neurological: Reports: as per HPI, headache Psychiatric: Denies: anxiety, depression, suicidal thoughts, homicidal thoughts , auditory hallucinations, visual hallucinations Endocrine: Denies: fatigue Hematological/Lymphatic: Denies: easy bleeding, easy bruising Allergic/Immunologic: Denies: facial swelling, urticaria Past Medical History - Past Medical History Attestation: Yes The following information was validated with the patient. Source: patient, nursing notes reviewed Medical history: Reports: arthritis, coronary artery disease, diabetes, hypertension, other Surgical history: Reports: angioplasty/stent, hysterectomy, orthopedic, other Psychiatric history: Reports: depression - Social History Smoking Status: Never smoker Smokeless Tobacco Status: No Alcohol use: Reports: rarely Drug use: Reports: none Physical Exam - General Limitations: no limitations General appearance: alert, in no apparent distress - Head Head exam: atraumatic, normocephalic, normal inspection - Eye Eye exam: Present: normal appearance, PERRL, EOMI - ENT ENT exam: normal exam, normal oropharynx, mucous membranes moist - Neck Neck exam: Present: normal inspection, full ROM, trachea midline - Chest Chest inspection: Present: normal inspection, symmetric chest wall rise - Respiratory Respiratory exam: Present: normal lung sounds bilaterally - Cardiovascular Cardiovascular exam: Present: regular rate, normal rhythm, normal heart sounds - Abdominal Exam Abdominal exam: Present: soft, Non-Tender. Absent: tenderness, distention, guarding, rebound, rigidity - Extremities Exam Extremities exam: Present: normal inspection - Back Exam Back exam: Present: normal inspection - Neurological Exam Neurological exam: Present: alert, oriented X3 - Psychiatric Psychiatric exam: Present: normal affect, normal mood - Skin Skin exam: Present: warm, dry, intact Course Vital Signs Temperature 97.4 F L 12/06/17 17:07 Pulse Rate 86 12/06/17 17:07 Respiratory Rate 20 12/06/17 17:07 Blood Pressure 121/62 12/06/17 17:07 O2 Sat by Pulse Oximetry 94 12/06/17 17:07 Temperature 98.6 F 12/07/17 06:00 Pulse Rate 65 12/07/17 06:00 Respiratory Rate 18 12/07/17 06:00 Blood Pressure 141/66 12/07/17 06:00 O2 Sat by Pulse Oximetry 97 12/07/17 06:00 Oxygen Delivery Oxygen Delivery Room Air Medical Decision Making - MDM Narrative Medical decision making narrative: Review the patient's medication list - Lab Data Result diagrams: 12/07/17 04:56 12/07/17 04:56 Lab Results 12/06/17 12/06/17 12/06/17 Range/Units 17:30 17:30 17:30 WBC 14.2 H (4.3-11.1) K/mcL RBC 4.63 (3.82-4.97) M/mcL Hgb 13.6 (11.5-15.4) g/dL Hct 40.2 (35.3-44.9) % MCV 86.8 (83.0-100.0) fL MCH 29.4 (28.0-33.3) pg MCHC 33.8 (31.6-35.5) g/dL RDW 13.5 (11.5-14.5) % Plt Count 397 (140-400) K/mcL MPV 9.8 (9.4-12.4) fL Immature Gran % 0.7 (0-4) % Seg Neutrophils % 82.5 % Lymphocytes % 11.0 % Monocytes % 5.4 % Eosinophils % 0.1 % Basophils % 0.3 % Neutrophils # 11.7 H (1.6-8.9) K/mcL Lymphocytes # 1.6 (0.6-4.6) K/mcL Monocytes # 0.8 (0.0-1.3) K/mcL Eosinophils # 0.0 (0.0-0.6) K/mcL Basophils # 0.0 (0.0-0.2) K/mcL Sodium 137 (136-145) mEq/L Potassium 3.4 L (3.5-5.1) mEq/L Chloride 97 L (98-107) mEq/L Carbon Dioxide 25 (23-29) mEq/L BUN 46 H (8-23) mg/dL Creatinine 1.29 H (0.60-1.20) mg/dL Est GFR ( Amer) 49 L (> 60) Est GFR (Non-Af Amer) 40 L (> 60) BUN/Creatinine Ratio 36 H (6-26) Glucose 237 H (70-105) mg/dL POC Glucose (70-99) mg/dL Calculated Osmolality 304 H (280-300) Calcium 9.1 (8.6-10.3) mg/dL Total Bilirubin 0.6 (0.3-1.0) mg/dL AST 46 H (13-39) Units/L ALT 23 (7-52) Units/L Alkaline Phosphatase 67 (34-104) Units/L Creatine Kinase 800 H (30-223) Units/L Troponin I 0.16 H* (< 0.04) ng/mL Serum Total Protein 6.4 (6.4-8.9) g/dL Albumin 3.7 (3.5-5.7) g/dL Globulin 2.7 (2.4-3.5) g/dL Albumin/Globulin Ratio 1.4 (1.1-2.2) Urine Color (Yellow) Urine Clarity (Clear) Urine pH (5.0-8.0) pH Units Ur Specific [place] (1.010-1.025) Urine Protein (Neg-Trace) mg/dL Urine Glucose (UA) (Normal) mg/dL Urine Ketones (Negative) mg/dL Urine Blood (Negative) Urine Nitrite (Negative) Urine Bilirubin (Negative) Urine Urobilinogen (Normal) mg/dL Ur Leukocyte Esterase (Negative) Urine Microscopic WBC Ur Squamous Epith Cells (None-Few) per lpf Ur Transition Epith Cell (None-Few) per hpf Amorphous Sediment (Few) Hyaline Casts (None-Few) per lpf Ur Culture Indicated? (NO) 12/06/17 12/06/17 12/06/17 Range/Units 19:19 19:55 21:43 WBC (4.3-11.1) K/mcL RBC (3.82-4.97) M/mcL Hgb (11.5-15.4) g/dL Hct (35.3-44.9) % MCV (83.0-100.0) fL MCH (28.0-33.3) pg MCHC (31.6-35.5) g/dL RDW (11.5-14.5) % Plt Count (140-400) K/mcL MPV (9.4-12.4) fL Immature Gran % (0-4) % Seg Neutrophils % % Lymphocytes % % Monocytes % % Eosinophils % % Basophils % % Neutrophils # (1.6-8.9) K/mcL Lymphocytes # (0.6-4.6) K/mcL Monocytes # (0.0-1.3) K/mcL Eosinophils # (0.0-0.6) K/mcL Basophils # (0.0-0.2) K/mcL Sodium (136-145) mEq/L Potassium (3.5-5.1) mEq/L Chloride (98-107) mEq/L Carbon Dioxide (23-29) mEq/L BUN (8-23) mg/dL Creatinine (0.60-1.20) mg/dL Est GFR ( Amer) (> 60) Est GFR (Non-Af Amer) (> 60) BUN/Creatinine Ratio (6-26) Glucose (70-105) mg/dL POC Glucose 121 H (70-99) mg/dL Calculated Osmolality (280-300) Calcium (8.6-10.3) mg/dL Total Bilirubin (0.3-1.0) mg/dL AST (13-39) Units/L ALT (7-52) Units/L Alkaline Phosphatase (34-104) Units/L Creatine Kinase (30-223) Units/L Troponin I 0.17 H* (< 0.04) ng/mL Serum Total Protein (6.4-8.9) g/dL Albumin (3.5-5.7) g/dL Globulin (2.4-3.5) g/dL Albumin/Globulin Ratio (1.1-2.2) Urine Color Yellow (Yellow) Urine Clarity Clear (Clear) Urine pH 5.5 (5.0-8.0) pH Units Ur Specific [place] 1.025 (1.010-1.025) Urine Protein 30 H (Neg-Trace) mg/dL Urine Glucose (UA) Normal (Normal) mg/dL Urine Ketones Trace H (Negative) mg/dL Urine Blood Negative (Negative) Urine Nitrite Negative (Negative) Urine Bilirubin Large H (Negative) Urine Urobilinogen Normal (Normal) mg/dL Ur Leukocyte Esterase Negative (Negative) Urine Microscopic WBC Test Not Performed Ur Squamous Epith Cells Moderate H (None-Few) per lpf Ur Transition Epith Cell Moderate H (None-Few) per hpf Amorphous Sediment Few (Few) Hyaline Casts Moderate H (None-Few) per lpf Ur Culture Indicated? NO (NO) - EKG Data EKG #1 EKG attestation: Yes I reviewed and interpreted this EKG. EKG results narrative: EKG shows sinus rhythm with anterior lateral T changes. Rate is 79 bpm. We will 144 ms. QRS duration 5 ms QT interval 411 ms QTC 446 ms R axis of -2 degrees. The T changes noted in V3 through 6 appear To be new from August
[2017-12-06 17:39] LABS: Basophils % 0.3 %; Eosinophils % 0.1 %; Hematocrit 40.2 % (35.3-44.9); Hemoglobin 13.6 g/dL (11.5-15.4); Immature Granulocytes % 0.7 % (0-4); Lymphocytes # 1.6 K/mcL (0.6-4.6); Mean Corpuscular HGB Conc 33.8 g/dL (31.6-35.5); Mean Corpuscular Hemoglobin 29.4 pg (28.0-33.3); Mean Corpuscular Volume 86.8 fL (83.0-100.0); Mean Platelet Volume 9.8 fL (9.4-12.4); Monocytes # 0.8 K/mcL (0.0-1.3); Monocytes % 5.4 %; Neutrophils # 11.7 K/mcL (1.6-8.9); Platelet Count 397 K/mcL (140-400); Red Blood Count 4.63 M/mcL (3.82-4.97); Red Cell Distribution Width 13.5 % (11.5-14.5); Segmented Neutrophils % 82.5 %
[2017-12-06 17:57] LABS: Albumin 3.7 g/dL (3.5-5.7); Albumin/Globulin Ratio 1.4 (1.1-2.2); Bilirubin,Total 0.6 mg/dL (0.3-1.0); Calcium 9.1 mg/dL (8.6-10.3); Globulin 2.7 g/dL (2.4-3.5); Potassium 3.4 mEq/L (3.5-5.1); Total Protein 6.4 g/dL (6.4-8.9)
[2017-12-06] MEDS ORDERED: 0.9 % Sodium Chloride 500 ML IVC ONE (18:35)
[2017-12-06 21:47] LABS: Bilirubin,Urine Large (Negative); Blood,Urine Negative (Negative); Clarity,Urine Clear (Clear); Color,Urine Yellow (Yellow); Glucose,Urine (UA) Normal (Normal); Ketones,Urine Trace mg/dL (Negative); Leukocyte Esterase,Urine Negative (Negative); Nitrite,Urine Negative (Negative); PH,Urine 5.5 pH Units (5.0-8.0); Protein,Urine 30 mg/dL (Neg-Trace); Specific Gravity,Urine 1.025 (1.010-1.025); Urobilinogen,Urine Normal (Normal)
[2017-12-06 21:55] LABS: Amorphous Sediment,Urine Few (Few); Hyaline Casts,Urine Moderate per lpf (None-Few); Squamous Epithelial Cell,Urine Moderate per lpf (None-Few); Transitional Epi Cells,Urine Moderate per hpf (None-Few)
[2017-12-07] MEDS ORDERED: traMADol 50 MG TABLET PO PRN (00:11)
[2017-12-07] MEDS ORDERED: Naloxone 0.4 MG/ML INJ IVP PRN (00:11)
[2017-12-07] MEDS ORDERED: *HR* HYDROcodone/Acet 5/325 mg TABLET PO PRN (00:11)
[2017-12-07] MEDS: Acetaminophen 325 MG TABLET PO SCH ×4 (00:47→18:12)
[2017-12-07] MEDS: 0.9 % Sodium Chloride 1,000 ML IVC SCH ×2 (00:47→15:56)
[2017-12-07 05:25] LABS: Basophils # 0.1 K/mcL (0.0-0.2); Basophils % 0.4 %; Eosinophils # 0.1 K/mcL (0.0-0.6); Hematocrit 35.3 % (35.3-44.9); Hemoglobin 11.9 g/dL (11.5-15.4); Immature Granulocytes % 0.6 % (0-4); Lymphocytes # 3.3 K/mcL (0.6-4.6); Lymphocytes % 25.9 %; Mean Corpuscular HGB Conc 33.7 g/dL (31.6-35.5); Mean Corpuscular Hemoglobin 29.5 pg (28.0-33.3); Mean Corpuscular Volume 87.6 fL (83.0-100.0); Mean Platelet Volume 9.8 fL (9.4-12.4); Monocytes % 7.7 %; Neutrophils # 8.1 K/mcL (1.6-8.9); Platelet Count 360 K/mcL (140-400); Red Blood Count 4.03 M/mcL (3.82-4.97); Red Cell Distribution Width 13.5 % (11.5-14.5); Segmented Neutrophils % 64.4 %
[2017-12-07 05:45] LABS: BUN/Creatinine Ratio 41 (6-26); Blood Urea Nitrogen 41 mg/dL (8-23); Calcium 8.3 mg/dL (8.6-10.3); Carbon Dioxide 27 mEq/L (23-29); Chloride 100 mEq/L (98-107); Glucose 129 mg/dL (70-105); Osmolality,Calculated 296 (280-300); Potassium 3.2 mEq/L (3.5-5.1); Sodium 137 mEq/L (136-145); eGFR For Non-African Americans 54 (> 60)
[2017-12-07] MEDS: traMADol 50 MG TABLET PO PRN (06:26)
[2017-12-07] MEDS: Primidone 50 MG TABLET PO SCH ×3 (08:17→20:49)
[2017-12-07] MEDS: *HR* Metformin 500 MG TABLET PO SCH (08:18)
[2017-12-07] MEDS: Gabapentin 300 MG CAPSULE PO SCH (08:18)
[2017-12-07] MEDS: Isosorbide MONOnitrate (24 HR) 30 MG TAB.ER.24H PO SCH (08:19)
[2017-12-07] MEDS: ALPRAZolam 0.25 MG TABLET PO PRN ×2 (08:38→20:50)
[2017-12-07] MEDS ORDERED: Methyl Salicylate/Menthol 28 GM TUBE TP SCH (09:00)
--- NOTE | 2017-12-07 10:04 | Internal Med History&Physical ---
Date of Encounter: 12/07/17 Time of Encounter: 09:35 Assessment and Plan (1) Acute renal failure Current visit: Yes Status: Acute Suspect due to dehydration from inadequate intake. IV fluids have been ordered and renal indices will be monitored. Qualifiers: Acute renal failure type: unspecified Qualified Code(s): N17.9 - Acute kidney failure, unspecified (2) Elevated troponin Current visit: Yes Status: Acute Known ASHD with multiple stents. Possibly due to demand ischemia from stress of bathtub incident. Will repeat troponin and obtain heart cath and stress test report from [facility]. (3) ASHD (arteriosclerotic heart disease) Current visit: No Status: Chronic As above (4) DM type 2 (diabetes mellitus, type 2) Current visit: No Status: Chronic Check hemoglobin A1c in a.m. Continue Glucophage Qualifiers: Diabetes mellitus ad terminal makeup operator insulin use: without senior care use Diabetes mellitus complication status: without complication Qualified Code(s): E11.9 - Type 2 diabetes mellitus without complications (5) Hypertension Current visit: No Status: Chronic Continue Cozaar and Coreg Qualifiers: Hypertension type: essential hypertension Qualified Code(s): I10 - Essential (primary) hypertension (6) Weakness Current visit: Yes Status: Acute She will likely need PT and OT evaluations. She will possibly require swing bed /SNF placement (7) Dementia Current visit: Yes Status: Suspected Order MMSE. Qualifiers: Dementia type: unspecified type Dementia behavioral disturbance: without behavioral disturbance Qualified Code(s): F03.90 - Unspecified dementia without behavioral disturbance Internal Medicine - H&P: HPI Chief complaint: Fall and weakness Admitted From: Emergency Dept Plans for Post Hospital Care: Home History of present illness: Ms. Pisano is a 76 year old female who was brought to emergency room after she was found on her bathroom floor at home. She reports she had taken a tub bath but was unable to get out of the tub for several hours due to general weakness. When she finally was able to crawl over the side of the time she was unable to get off the bathroom floor. She denies loss of consciousness. She is uncertain of the duration of the entire event. She was brought to emergency room and evaluated and admitted to [facility] for ongoing care needs. She denies pain at the present time. She admits she does not have good recall of some details of the event and her memory overall has decreased. She admits to weakness but denies falling during ambulation at home in the past few weeks. Past Med Surg Social Fam HX - Past Medical History Medical history: arthritis, coronary artery disease, diabetes, hypertension, other Additional medical history: 4 CARDIAC STENTS Psychiatric history: depression - Past Surgical History Surgical History: angioplasty/stent, hysterectomy, orthopedic, other Additional surgical history: heart stents x5, back surgeries x2 - Social History Smoking Status: Never smoker Smokeless Tobacco Status: No Alcohol use: rarely Drug use: none - Family History Mother Hx Family Endocrine Disorder: Yes (DM) Brother Hx Family Cardiac Disorders: Yes Sister Hx Family Cardiac Disorders: Yes (CA) Internal Medicine - H&P: Meds Esomeprazole Magnesium [Nexium] 40 mg PO DAILY 05/15/15 [History] Losartan Potassium [Cozaar] 50 mg PO BID 05/15/15 [History] Atorvastatin [Lipitor] 40 mg PO HS 06/14/15 [History] Clopidogrel [Plavix] 75 mg PO DAILY 06/14/15 [History] Isosorbide MONOnitrate (24 HR) [Imdur] 30 mg PO DAILY 06/14/15 [History] ALPRAZolam [Xanax 0.25 MG Tablet] 0.25 mg PO BID PRN #120 tablet 06/24/15 [Rx] Carvedilol [Coreg] 6.25 mg PO BIDWM 365 Days tablet 06/24/15 [Rx] Gabapentin [Neurontin] 300 mg PO DAILY #0 06/24/15 [Rx] metFORMIN [Glucophage] 500 mg PO 0800 365 Days tablet 06/24/15 [Rx] HYDROcodone/Acet 5/325 mg [[place] 5-325 mg] 1 tab PO Q4H PRN #15 tab 01/01/17 [Rx ] Sertraline [Zoloft] 100 mg PO DAILY 01/01/17 [History] Tramadol HCl [Ultram] 50 mg PO BID PRN 01/01/17 [History] Acetaminophen [Tylenol] 650 mg PO Q6HR tablet 06/30/17 [Rx] Methyl Salicylate/Menthol [Bengay] 1 appl TP DAILY tube 06/30/17 [Rx] Lidocaine Patch [Lidoderm 5% patch] 1 each TP DAILY #7 adh..patch 07/06/17 [Rx] Primidone [Mysoline] 50 mg PO TID 07/07/17 [History] FentaNYL PATCH [Duragesic] 12 mcg TD Q72H 6 Days #2 patch.td72 07/18/17 [Rx] 3 Allergy/AdvReac Type Severity Reaction Status Date / Time lorazepam [From Ativan] AdvReac Hallucinati Verified 07/07/17 20:21 ng All Systems PM: A 10-system review of systems was performed and is negative for pertinent findings except as documented above in the HPI. Review of systems: Review of systems from her June 2016 [facility] hospitalization were reviewed and revised as below. Gen.: Her weight has decreased from 76.657 kg on 07/07/2017 to 71.2 kg on admission. Cardiovascular: She has history of hypertension and known ASHD with 5 stents placed. She thinks most recent stent was July 2015 at [facility]. She does not recall if she has had a heart catheter or stress test since then. She denies heart failure CA DVT or pulmonary embolus. Respiratory: She is a lifelong nonsmoker and has no known chronic lung disease. GI: She has GERD but denies other disorders of her liver gallbladder or exocrine pancreas. : She denies hematuria dysuria or kidney stones. Neurologic: She denies large distribution strokes or seizures. She does have DPN Endocrine: She was diagnosed with DM 2 approximately 2009. Hemoglobin A1c was 5.8% on 10/12/2017. She has hyperlipidemia but no known thyroid disease. Hematology/oncology: She denies blood disorders cancers or anemia. Psychiatric: She has anxiety and depression but denies other mental health issues Musk skeletal: She had T12 compression fracture June 2017 with [facility] hospitalization. She had previous posterior lumbar fusion and discectomy L3-5 approximately 20 years ago. She has grade 1 anterolisthesis of L2 on L3. She has osteoporosis but denies gout or other bone joint or muscle disorders. - Constitutional Vitals: Temp Pulse Resp BP Pulse Ox 98.6 F 65 18 141/66 97 12/07/17 06:00 12/07/17 06:00 12/07/17 06:00 12/07/17 06:00 12/07/17 06:00 Exam: Gen.: She is a well-developed well-nourished female lying in bed who appears in no acute distress at present time HEENT: Head is atraumatic and normocephalic. Eyes: EOMI. There is no scleral icterus. Mouth: Mucosa is moist. Neck: Supple and nontender. There is no thyromegaly or adenopathy noted. Heart: Regular with a 2/6 systolic murmur heard at the left sternal border. S1 and S2 are preserved. Lungs: No wheezes or crackles are heard. Abdomen: Soft and nontender. No masses or guarding are noted. Back: She is wearing a Lidoderm patch on her upper lumbar area midline. She has Allevyn over right upper medial gluteal skin. I did not remove these. Extremities: There is no cyanosis edema or clubbing noted. Dorsalis pedis and posterior tibial pulses are trace to 1+ palpable bilaterally. She has DJD changes of her hands. Neurologic: Mental status: She is talkative and a fair historian. She does not remember some details of her history. Clock drawing test shows significant abnormality on numeral location and inability to place clock hands to show requested time. Cranial nerves: Smile is symmetric. Forehead wrinkles bilaterally. Tongue protrudes midline. EOMI. Motor: There is no pronator drift. Cerebellar: Finger to nose is intact bilaterally. Skin: Warm and dry. She has multiple ecchymoses on her legs. Internal Med - H&P Results - Labs CBC & Chem 7: 12/07/17 04:56 12/07/17 04:56 Labs: Short CBC 12/07/17 Range/Units 04:56 WBC 12.6 H (4.3-11.1) K/mcL Hgb 11.9 D (11.5-15.4) g/dL Hct 35.3 (35.3-44.9) % Plt Count 360 (140-400) K/mcL Neutrophils # 8.1 (1.6-8.9) K/mcL BMP 12/07/17 04:56 Sodium 137 Potassium 3.2 L Chloride 100 Carbon Dioxide 27 BUN 41 H Creatinine 1.01 Glucose 129 H Calcium 8.3 L
[2017-12-07] MEDS: 0.45 % Sodium Chloride w/KCl 20 MEQ/1,000 ML MLS IVC SCH ×2 (12:08→23:24)
[2017-12-07] MEDS ORDERED: Dextrose Gel 15 GM/37.5 ML TUBE PO PRN ×2 (16:06)
[2017-12-07] MEDS ORDERED: *HR* Dextrose 50 % in Water (Syg) 50 ML SYRINGE IVP PRN (16:06)
[2017-12-07] MEDS ORDERED: D5% in Water 1,000 ML IVC PRN (16:06)
[2017-12-07] MEDS: Insulin LISPRO 300 UNITS/3 ML VIAL SQ SCH ×2 (18:08→20:51)
[2017-12-07] MEDS: *HR* HYDROcodone/Acet 5/325 mg TABLET PO PRN (23:34)
[2017-12-08] MEDS: Acetaminophen 325 MG TABLET PO SCH ×4 (00:54→16:22)
[2017-12-08 05:17] LABS: Basophils # 0.1 K/mcL (0.0-0.2); Basophils % 0.7 %; Eosinophils # 0.2 K/mcL (0.0-0.6); Eosinophils % 2.6 %; Hematocrit 34.5 % (35.3-44.9); Hemoglobin 11.6 g/dL (11.5-15.4); Immature Granulocytes % 0.6 % (0-4); Lymphocytes % 22.2 %; Mean Corpuscular HGB Conc 33.6 g/dL (31.6-35.5); Mean Corpuscular Hemoglobin 29.9 pg (28.0-33.3); Mean Corpuscular Volume 88.9 fL (83.0-100.0); Mean Platelet Volume 10.3 fL (9.4-12.4); Monocytes # 0.7 K/mcL (0.0-1.3); Monocytes % 7.3 %; Platelet Count 345 K/mcL (140-400); Red Blood Count 3.88 M/mcL (3.82-4.97); Red Cell Distribution Width 13.5 % (11.5-14.5); Segmented Neutrophils % 66.6 %
[2017-12-08 05:37] LABS: BUN/Creatinine Ratio 29 (6-26); Blood Urea Nitrogen 23 mg/dL (8-23); Calcium 8.4 mg/dL (8.6-10.3); Carbon Dioxide 27 mEq/L (23-29); Chloride 102 mEq/L (98-107); Glucose 107 mg/dL (70-105); Osmolality,Calculated 288 (280-300); Potassium 3.8 mEq/L (3.5-5.1); Sodium 137 mEq/L (136-145); eGFR For Non-African Americans > 60 (> 60)
[2017-12-08] MEDS: Isosorbide MONOnitrate (24 HR) 30 MG TAB.ER.24H PO SCH (08:54)
[2017-12-08] MEDS: Primidone 50 MG TABLET PO SCH ×3 (08:54→21:33)
[2017-12-08] MEDS: Gabapentin 300 MG CAPSULE PO SCH (08:55)
[2017-12-08] MEDS: ALPRAZolam 0.25 MG TABLET PO PRN ×2 (08:55→21:32)
[2017-12-08] MEDS: *HR* HYDROcodone/Acet 5/325 mg TABLET PO PRN ×2 (08:55→21:33)
[2017-12-08] MEDS: 0.45 % Sodium Chloride w/KCl 20 MEQ/1,000 ML MLS IVC SCH ×2 (09:19→18:51)
[2017-12-08] MEDS: Insulin LISPRO 300 UNITS/3 ML VIAL SQ SCH ×4 (10:58→21:32)
--- NOTE | 2017-12-08 17:35 | Internal Med Progress Note ---
Date of Encounter: 12/08/17 Time of Encounter: 17:20 - Assessment and plan (1) Acute renal failure Current Visit: Yes Status: Acute Assessment and plan: December 08. Resolved. Continue IV fluids but reduce rate. Qualifiers: Acute renal failure type: unspecified Qualified Code(s): N17.9 - Acute kidney failure, unspecified (2) Elevated troponin Current Visit: Yes Status: Acute Assessment and plan: December 08. Likely due to demand ischemia from stress of bathtub incident. She has no complaints today of chest pain. (3) ASHD (arteriosclerotic heart disease) Current Visit: No Status: Chronic Assessment and plan: December 08. As above (4) DM type 2 (diabetes mellitus, type 2) Current Visit: No Status: Chronic Assessment and plan: December 08. Check hemoglobin A1c in a.m. Continue Glucophage. Blood sugars are satisfactory. 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 Continue Cozaar and Coreg Qualifiers: Hypertension type: essential hypertension Qualified Code(s): I10 - Essential (primary) hypertension (6) Weakness Current Visit: Yes Status: Acute Assessment and plan: December 08. Continue PT and OT intervention. (7) Dementia Current Visit: Yes Status: Suspected Assessment and plan: December 08. MMSE score of 18/30. Will order Exelon patch. Qualifiers: Dementia type: unspecified type Dementia behavioral disturbance: without behavioral disturbance Qualified Code(s): F03.90 - Unspecified dementia without behavioral disturbance - Subjective Interval history: December 08. She has no new complaints and feels better. - Constitutional Vitals: Temp Pulse Resp BP Pulse Ox 98.6 F 60 16 175/79 97 12/08/17 16:00 12/08/17 16:00 12/08/17 16:00 12/08/17 16:00 12/08/17 16:00 Exam: She is resting comfortably in bed and appears in no acute distress. Her affect is overall cheerful. I reviewed her medications and lab results. I note MMSE score of 18/30. I spoke with her daughter yesterday on the phone at length and explained why I felt it was best for her mother not to be living independently alone for the foreseeable future. Internal Medicine: Result - Labs CBC & Chem 7: 12/08/17 04:17 12/08/17 04:17 Labs: Short CBC 12/08/17 Range/Units 04:17 WBC 9.1 (4.3-11.1) K/mcL Hgb 11.6 (11.5-15.4) g/dL Hct 34.5 L (35.3-44.9) % Plt Count 345 (140-400) K/mcL Neutrophils # 6.0 (1.6-8.9) K/mcL BMP 12/08/17 04:17 Sodium 137 Potassium 3.8 Chloride 102 Carbon Dioxide 27 BUN 23 Creatinine 0.78 Glucose 107 H Calcium 8.4 L Consult Discharge Plan - Plan Referrals: Tania Morales MD [Primary Care Provider] - 1 week
[2017-12-08] MEDS: Rivastigmine Patch 4.6 MG PATCH.TD24 TD SCH (18:51)
[2017-12-09] MEDS: Acetaminophen 325 MG TABLET PO SCH ×4 (00:13→18:24)
[2017-12-09 06:37] LABS: Basophils # 0.1 K/mcL (0.0-0.2); Basophils % 0.6 %; Eosinophils # 0.3 K/mcL (0.0-0.6); Eosinophils % 3.6 %; Hematocrit 37.8 % (35.3-44.9); Hemoglobin 12.5 g/dL (11.5-15.4); Immature Granulocytes % 0.4 % (0-4); Lymphocytes # 2.4 K/mcL (0.6-4.6); Lymphocytes % 29.2 %; Mean Corpuscular HGB Conc 33.1 g/dL (31.6-35.5); Mean Corpuscular Hemoglobin 29.4 pg (28.0-33.3); Mean Corpuscular Volume 88.9 fL (83.0-100.0); Mean Platelet Volume 9.3 fL (9.4-12.4); Monocytes # 0.8 K/mcL (0.0-1.3); Monocytes % 9.7 %; Neutrophils # 4.6 K/mcL (1.6-8.9); Platelet Count 332 K/mcL (140-400); Red Blood Count 4.25 M/mcL (3.82-4.97); Red Cell Distribution Width 13.4 % (11.5-14.5); Segmented Neutrophils % 56.5 %
[2017-12-09 06:59] LABS: BUN/Creatinine Ratio 13 (6-26); Blood Urea Nitrogen 8 mg/dL (8-23); Calcium 8.8 mg/dL (8.6-10.3); Carbon Dioxide 29 mEq/L (23-29); Chloride 101 mEq/L (98-107); Glucose 111 mg/dL (70-105); Osmolality,Calculated 283 (280-300); Potassium 4.1 mEq/L (3.5-5.1); Sodium 137 mEq/L (136-145); eGFR For Non-African Americans > 60 (> 60)
[2017-12-09] MEDS: Insulin LISPRO 300 UNITS/3 ML VIAL SQ SCH ×3 (09:45→16:36)
--- NOTE | 2017-12-09 10:21 | Internal Med Progress Note ---
Date of Encounter: 12/09/17 Time of Encounter: 10:12 - Assessment and plan (1) Acute renal failure Current Visit: Yes Status: Acute Assessment and plan: December 08. Resolved. Continue IV fluids but reduce rate. December 09. BUN and creatinine are further improved to 8 and 0.60 respectively with estimated GFR greater than 60. Discontinue IV fluids. Qualifiers: Acute renal failure type: unspecified Qualified Code(s): N17.9 - Acute kidney failure, unspecified (2) Elevated troponin Current Visit: Yes Status: Acute Assessment and plan: December 08. Likely due to demand ischemia from stress of bathtub incident. She has no complaints today of chest pain. (3) ASHD (arteriosclerotic heart disease) Current Visit: No Status: Chronic Assessment and plan: December 08. As above (4) DM type 2 (diabetes mellitus, type 2) Current Visit: No Status: Chronic Assessment and plan: December 08. Check hemoglobin A1c in a.m. Continue Glucophage. Blood sugars are satisfactory. December 09. Hemoglobin A1c pending. Blood sugars are satisfactory. Continue Glucophage. Qualifiers: Diabetes mellitus usp insulin use: without medical terminologist use Diabetes mellitus complication status: without complication Qualified Code(s): E11.9 - Type 2 diabetes mellitus without complications (5) Hypertension Current Visit: No Status: Chronic Assessment and plan: December 08. Continue Cozaar and Coreg Qualifiers: Hypertension type: essential hypertension Qualified Code(s): I10 - Essential (primary) hypertension (6) Weakness Current Visit: Yes Status: Acute Assessment and plan: December 08. Continue PT and OT intervention. (7) Dementia Current Visit: Yes Status: Suspected Assessment and plan: December 08. MMSE score of 18/30. Will order Exelon patch. Qualifiers: Dementia type: unspecified type Dementia behavioral disturbance: without behavioral disturbance Qualified Code(s): F03.90 - Unspecified dementia without behavioral disturbance - Subjective Interval history: December 08. She has no new complaints and feels better. December 09. She has no new complaints. - Constitutional Vitals: Temp Pulse Resp BP Pulse Ox 99.1 F 58 14 175/74 98 12/09/17 06:41 12/09/17 06:41 12/09/17 06:41 12/09/17 06:41 12/09/17 06:41 Exam: She is resting comfortably in bed and appears in no acute distress. Her affect is cheerful. I reviewed her medications and lab results. Internal Medicine: Result - Labs CBC & Chem 7: 12/09/17 06:21 12/09/17 06:21 Labs: Short CBC 12/09/17 Range/Units 06:21 WBC 8.1 (4.3-11.1) K/mcL Hgb 12.5 (11.5-15.4) g/dL Hct 37.8 (35.3-44.9) % Plt Count 332 (140-400) K/mcL Neutrophils # 4.6 (1.6-8.9) K/mcL BMP 12/09/17 06:21 Sodium 137 Potassium 4.1 Chloride 101 Carbon Dioxide 29 BUN 8 Creatinine 0.60 Glucose 111 H Calcium 8.8 Consult Discharge Plan - Plan Referrals: Tania Morales MD [Primary Care Provider] - 1 week
[2017-12-09] MEDS: 0.45 % Sodium Chloride w/KCl 20 MEQ/1,000 ML MLS IVC SCH ×2 (10:45→13:10)
[2017-12-09] MEDS: Isosorbide MONOnitrate (24 HR) 30 MG TAB.ER.24H PO SCH (10:47)
[2017-12-09] MEDS: Primidone 50 MG TABLET PO SCH ×3 (10:48→21:37)
[2017-12-09] MEDS: Gabapentin 300 MG CAPSULE PO SCH (10:48)
[2017-12-09] MEDS: ALPRAZolam 0.25 MG TABLET PO PRN ×2 (10:49→21:37)
[2017-12-09] MEDS: traMADol 50 MG TABLET PO PRN (10:49)
[2017-12-09] MEDS: Rivastigmine Patch 4.6 MG PATCH.TD24 TD SCH (10:50)
[2017-12-09 11:12] LABS: Estimated Average Glucose 114 mg/dl; Hemoglobin A1C 5.6 %
[2017-12-09] MEDS ORDERED: Ondansetron 4 MG/2 ML VIAL IVP PRN (15:31)
[2017-12-10] MEDS: Insulin LISPRO 300 UNITS/3 ML VIAL SQ SCH ×3 (01:30→12:11)
[2017-12-10 06:17] VITALS: BP 191/89
[2017-12-10] MEDS: Acetaminophen 325 MG TABLET PO SCH ×3 (06:44→11:51)
[2017-12-10] MEDS: Gabapentin 300 MG CAPSULE PO SCH (08:07)
[2017-12-10] MEDS: Isosorbide MONOnitrate (24 HR) 30 MG TAB.ER.24H PO SCH (08:07)
[2017-12-10] MEDS: Rivastigmine Patch 4.6 MG PATCH.TD24 TD SCH (08:08)
[2017-12-10] MEDS: *HR* Metformin 500 MG TABLET PO SCH (08:08)
[2017-12-10] MEDS: Primidone 50 MG TABLET PO SCH ×2 (08:08→15:06)
[2017-12-10] MEDS: ALPRAZolam 0.25 MG TABLET PO PRN (15:06)
--- NOTE | 2017-12-10 15:14 | Discharge Summary ---
Date of Encounter: 12/10/17 Time of Encounter: 15:00 - Discharge Diagnosis (1) Acute renal failure Priority: Primary Status: Resolved Qualifiers: Acute renal failure type: unspecified Qualified Code(s): N17.9 - Acute kidney failure, unspecified (2) Elevated troponin Priority: Secondary Status: Acute (3) ASHD (arteriosclerotic heart disease) Priority: Secondary Status: Chronic (4) DM type 2 (diabetes mellitus, type 2) Priority: Secondary Status: Chronic Qualifiers: Diabetes mellitus termite renewal inspector insulin use: without termite renewal inspector use Diabetes mellitus complication status: without complication Qualified Code(s): E11.9 - Type 2 diabetes mellitus without complications (5) Hypertension Priority: Secondary Status: Chronic Qualifiers: Hypertension type: essential hypertension Qualified Code(s): I10 - Essential (primary) hypertension (6) Weakness Priority: Secondary Status: Acute (7) Dementia Priority: Secondary Status: Chronic Qualifiers: Dementia type: unspecified type Dementia behavioral disturbance: without behavioral disturbance Qualified Code(s): F03.90 - Unspecified dementia without behavioral disturbance Hospital course: Ms. Pisano is a 76 year old female who was brought to emergency room after she was found on her bathroom floor at home. She reports she had taken a tub bath but was unable to get out of the tub for several hours due to general weakness. When she finally was able to crawl over the side of the time she was unable to get off the bathroom floor. She denies loss of consciousness. She is uncertain of the duration of the entire event. She was brought to emergency room and evaluated and admitted to [facility] for ongoing care needs. Initial orders were written by the emergency room physician. I saw her on December 07 and performed a history and physical. She was started on IV fluids. Azotemia resolved with BUN and creatinine improving to 8 and 0.60 respectively by day of discharge. She had adequate amount of oral food and fluid intake by time of discharge to maintain hydration. MMSE showed score of 18/30. She was started on Exelon patch 4.6 mg daily. Hemoglobin A1c returned satisfactory 5.6%. She will continue Glucophage 500 mg daily. Heart cath report from [facility] done 05/16/2016 was received and reviewed. Left ventriculogram was not done. There was 50-60% stenosis in the proximal LAD, 10- 20% in-stent restenosis in the mid LAD, 10-20% in-stent restenosis in the proximal left circumflex, and 20-30% in-stent restenosis in the mid ramus intermedius. She remained clinically stable on Plavix and Imdur. Physical therapy and occupational therapy interventions were done and she progressed well. It was felt however she would benefit from ongoing therapy. Because of her impaired mental status it is uncertain if she will return to independent living. She will follow with me at [facility]. - Time Spent with Patient Total time spent providing and/or coordinating discharge services: - Discharge Medications Prescriptions: ALPRAZolam [Xanax 0.25 MG Tablet] 0.25 mg PO BID PRN 14 Days #28 tablet PRN Reason: Anxiety Home Medications: Losartan Potassium [Cozaar] 50 mg PO BID 05/15/15 [History] Atorvastatin [Lipitor] 40 mg PO HS 06/14/15 [History] Clopidogrel [Plavix] 75 mg PO DAILY 06/14/15 [History] Isosorbide MONOnitrate (24 HR) [Imdur] 30 mg PO DAILY 06/14/15 [History] Carvedilol [Coreg] 6.25 mg PO BIDWM 365 Days tablet 06/24/15 [Rx] Gabapentin [Neurontin] 300 mg PO DAILY #0 06/24/15 [Rx] metFORMIN [Glucophage] 500 mg PO 0800 365 Days tablet 06/24/15 [Rx] HYDROcodone/Acet 5/325 mg [[place] 5-325 mg] 1 tab PO Q4H PRN #15 tab 01/01/17 [Rx ] Sertraline [Zoloft] 100 mg PO DAILY 01/01/17 [History] Tramadol HCl [Ultram] 50 mg PO BID PRN 01/01/17 [History] Acetaminophen [Tylenol] 650 mg PO Q6HR tablet 06/30/17 [Rx] Primidone [Mysoline] 50 mg PO TID 07/07/17 [History] ALPRAZolam [Xanax 0.25 MG Tablet] 0.25 mg PO BID PRN 14 Days #28 tablet [Rx] Esomeprazole Magnesium [Nexium] 40 mg PO DAILY PRN #0 12/10/17 [Rx] Rivastigmine Patch [Exelon] 4.6 mg TD DAILY patch.td24 12/10/17 [Rx] Allergies/Adverse Reactions: 3 Allergy/AdvReac Type Severity Reaction Status Date / Time lorazepam [From Ativan] AdvReac Hallucinati Verified 07/07/17 20:21 ng Date of admission: 12/07/17 09:57 Primary care physician: Tania Morales Consults: 12/07/17 10:49 Consult to Occupational Therapy [CONS] Routine Comment: Evaluate, develop and implement POC Reason for Consult: Fall, weakness Does patient have active BEDREST order?: No Is patient medically & hemodynamically stable?: Yes Patient assessed for mobility or mobilized this visit?: Yes Consult to Physical Therapy [CONS] Routine Comment: Evaluate, develop and implement POC Reason for Consult: Fall, weakness Does patient have active BEDREST order?: No Is patient medically & hemodynamically stable?: Yes Patient assessed for mobility or mobilized this visit?: Yes - Constitutional Vitals: Temp Pulse Resp BP Pulse Ox 98.6 F 62 16 191/89 94 12/10/17 06:14 12/10/17 06:14 12/10/17 06:14 12/10/17 06:14 12/10/17 06:14 - Patient Status Disposition: Transfer SNF Condition: Good - Discharge Instructions - Diet and Activity Activity: as per physical therapy Diet: diabetic diet
--- NOTE | 2017-12-10 15:22 | Physician Discharge Referral ---
ExtendedCare Referral Info Transfer To: TAB Provider in Charge: Howie Provider in Charge after Transfer: PCP Ray) Institutional Level of Care: Skilled - Diagnosis (1) Acute renal failure Priority: Primary Status: Resolved (2) Elevated troponin Priority: Secondary Status: Acute (3) ASHD (arteriosclerotic heart disease) Priority: Secondary Status: Chronic (4) DM type 2 (diabetes mellitus, type 2) Priority: Secondary Status: Chronic (5) Hypertension Priority: Secondary Status: Chronic (6) Weakness Priority: Secondary Status: Acute (7) Dementia Priority: Secondary Status: Chronic Prognosis: Fair Aware of Diagnosis: Patient, Family Aware of Prognosis: Patient, Family - Transfer Medications Prescriptions: ALPRAZolam [Xanax 0.25 MG Tablet] 0.25 mg PO BID PRN 14 Days #28 tablet PRN Reason: Anxiety Home Medications: Losartan Potassium [Cozaar] 50 mg PO BID 05/15/15 [History] Atorvastatin [Lipitor] 40 mg PO HS 06/14/15 [History] Clopidogrel [Plavix] 75 mg PO DAILY 06/14/15 [History] Isosorbide MONOnitrate (24 HR) [Imdur] 30 mg PO DAILY 06/14/15 [History] Carvedilol [Coreg] 6.25 mg PO BIDWM 365 Days tablet 06/24/15 [Rx] Gabapentin [Neurontin] 300 mg PO DAILY #0 06/24/15 [Rx] metFORMIN [Glucophage] 500 mg PO 0800 365 Days tablet 06/24/15 [Rx] HYDROcodone/Acet 5/325 mg [[place] 5-325 mg] 1 tab PO Q4H PRN #15 tab 01/01/17 [Rx ] Sertraline [Zoloft] 100 mg PO DAILY 01/01/17 [History] Tramadol HCl [Ultram] 50 mg PO BID PRN 01/01/17 [History] Acetaminophen [Tylenol] 650 mg PO Q6HR tablet 06/30/17 [Rx] Primidone [Mysoline] 50 mg PO TID 07/07/17 [History] ALPRAZolam [Xanax 0.25 MG Tablet] 0.25 mg PO BID PRN 14 Days #28 tablet [Rx] Esomeprazole Magnesium [Nexium] 40 mg PO DAILY PRN #0 12/10/17 [Rx] Rivastigmine Patch [Exelon] 4.6 mg TD DAILY patch.td24 12/10/17 [Rx] Allergies/Adverse Reactions: 3 Allergy/AdvReac Type Severity Reaction Status Date / Time lorazepam [From Ativan] AdvReac Hallucinati Verified 07/07/17 20:21 ng - Respiratory Orders Smoking Cessation: Smoking cessation has been advised. For more information, call the [place] Tobacco Quit Line at 7-384-LTBZ-NOW. - Advance Directives Code Status: Full Code (CBC with differential, BMP in 1 week and every 3 months , hemoglobin A1c, lipid profile every 3 months.) - Rehabiliation Orders Rehab Potential: Fair Rehab Orders: Evaluation for Physical Therapy, Evaluation for Occupational Therapy - Diet Orders No Concentrated Sweets CERTIFICATION: I certify that the transfer of the above named patient to an Extended Care Facility is necessary for the continuing treatment of the diagnosis listed. The above information is true and accurate reflection of patient's current condition. Confidential - Redisclosure prohibited without a patient's written consent.
--- NOTE | 2017-12-10 17:54 | Electrocardiograph Report ---
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
== END 2017-12-10 16:58 | DRG 683 ==
LOC: EMEROOPIK 17:05 → INPPIK 17:05
PROVIDERS: ADMIT Internal Medicine; ATTEND Internal Medicine

== ENCOUNTER 2018-12-14 17:51 | Inpatient (IN) ==
[2018-12-14] MEDS ORDERED: 0.9 % Sodium Chloride 500 ML IVC ONE (17:56)
--- NOTE | 2018-12-14 17:57 | Emergency Department Note ---
Disposition Clinical Impression: Weakness, Recurrent falls Disposition: Admitted As Inpatient Condition: Fair Referrals: Tania Morales MD [Primary Care Provider] - Forms: ED Satisfaction Letter Time of Disposition: 19:16 Weakness HPI - General Chief complaint: ED Fall Stated complaint: fell at home, denies injury Time Seen by Provider: 12/14/18 17:54 Source: patient, EMS Mode of arrival: EMS Limitations: no limitations Nursing Notes Reviewed: Yes Vital Signs Reviewed: Yes - History of Present Illness HPI Narrative: Patient reports that she has "just got weaker and weaker". She cannot describe any localizing complaints and states that she feels "just lifeless". Her weakness is diffuse and generalized. With this she states she has had a couple falls in the past couple days. She fell yesterday without injury. She states she just turned and went down this late afternoon and was on the ground and her daughter came to her house. The patient states that she does live alone. She thinks she was on the ground no more than 10-15 minutes. She denies any injury from this. She denies any pain whatsoever including her head on the neck, back, chest, upper extremity or lower extremity. She denies a recent change in medications, diet or [id number] medications. She has not had ill exposures. She has been taking all of her medications regularly. She denies any headache or visual changes. She denies chest pain or palpitation. She is not having cough, shortness of breath, fevers or chills. She denies abdominal pain nor any significant nausea, vomiting or diarrhea. She states that motion had slight nausea earlier today. She denies any alteration to her urine with no burning, dysuria, frequency or malodorous urine. Denies any lower extremity swelling or pain. She denies any episode quite like this before. She denies any history of stroke or seizures. She has not had history of dysrhythmia or heart failure nor respiratory trouble. She states she does have history of hypertension, diabetes and heart disease with 5 stents. She has not have history of elevated cholesterol, DVT, PE or smoking. She has been brought in by EMS with a EKG obtained at 5:39 PM. She has a heart rate of 71, axis of 18, MT interval of 134 and a QT/QTC of 418/434. She has no acute ST or T-wave changes on this EKG on my interpretation. Pt Subjective Complaint: generalized weakness/fatigue Onset (ago): day(s) Duration: constant, gradually worsening Location: generalized Migration: none Pain Severity: none Pain Scale: 0 Improves with: none Worsens with: other (Activity) Associated symptoms: Denies: chest pain, confusion, dark stools, diaphoresis, dysuria, easy bruising, fever/chills, headaches, loss of appetite, nausea/vomiting, myalgias, rash, shortness of breath, syncope - Related Data Home Medications Medication Instructions Recorded Confirmed Losartan Potassium [Cozaar] 50 mg PO BID 05/15/15 04/17/18 Atorvastatin [Lipitor] 40 mg PO HS 06/14/15 04/17/18 Clopidogrel [Plavix] 75 mg PO DAILY 06/14/15 04/17/18 Isosorbide MONOnitrate (24 HR) 30 mg PO DAILY 06/14/15 04/17/18 [Imdur] Sertraline [Zoloft] 100 mg PO DAILY 01/01/17 04/17/18 Tramadol HCl [Ultram] 50 mg PO BID PRN 01/01/17 04/17/18 Primidone [Mysoline] 50 mg PO TID 07/07/17 04/17/18 Previous Rx's Medication Instructions Recorded Carvedilol [Coreg] 6.25 mg PO BIDWM 365 Days tablet 06/24/15 Gabapentin [Neurontin] 300 mg PO DAILY #0 06/24/15 metFORMIN [Glucophage] 500 mg PO 0800 365 Days tablet 06/24/15 HYDROcodone/Acet 5/325 mg [[place] 1 tab PO Q4H PRN #15 tab 01/01/17 5-325 mg] Acetaminophen [Tylenol] 650 mg PO Q6HR tablet 06/30/17 ALPRAZolam [Xanax 0.25 MG Tablet] 0.25 mg PO BID PRN 14 Days #28 12/10/17 tablet Esomeprazole Magnesium [Nexium] 40 mg PO DAILY PRN #0 12/10/17 Rivastigmine Patch [Exelon] 4.6 mg TD DAILY patch.td24 12/10/17 Allergies Allergy/AdvReac Type Severity Reaction Status Date / Time lorazepam [From Ativan] AdvReac Hallucinati Verified 09/28/19 17:53 ng All systems ED: reviewed and negative except as stated. Past Medical History - Past Medical History Attestation: Yes The following information was validated with the patient. Source: patient, old records reviewed, obtained from family, nursing notes reviewed Medical history: Reports: arthritis, coronary artery disease, diabetes, hypertension, other. Denies: atrial fibrillation, cardiomyopathy, CHF, DVT, hyperlipidemia, pulmonary embolus Surgical history: Reports: angioplasty/stent, hysterectomy, orthopedic, other Psychiatric history: Reports: depression SET UP MECHANIC AUTOMATIC LINE history: Reports: no SET UP MECHANIC AUTOMATIC LINE history - Social History Smoking Status: Never smoker Smokeless Tobacco Status: No Alcohol use: Reports: rarely Drug use: Reports: none Physical Exam - General Limitations: no limitations General appearance: alert, in no apparent distress - Head Head exam: atraumatic, normocephalic, normal inspection, other (No point of tenderness to palpation around the head or neck.) - Eye Eye exam: Present: normal appearance, PERRL, EOMI - ENT ENT exam: normal exam, normal oropharynx, mucous membranes moist - Neck Neck exam: Present: normal inspection, full ROM, trachea midline. Absent: tenderness, lymphadenopathy - Chest Chest inspection: Present: normal inspection, symmetric chest wall rise. Absent: tenderness - Respiratory Respiratory exam: Present: normal lung sounds bilaterally. Absent: respiratory distress, wheezes, prolonged expiratory phase - Cardiovascular Cardiovascular exam: Present: regular rate, normal rhythm, normal heart sounds. Absent: tachycardia - Abdominal Exam Abdominal exam: Present: soft, Non-Tender, normal bowel sounds. Absent: tenderness, distention, guarding, rebound, rigidity - Extremities Exam Extremities exam: Present: normal inspection, full ROM, normal capillary refill. Absent: tenderness, pedal edema, calf tenderness - Expanded Lower Extremity Exam Neurovascular/Tendon exam: Present: normal capillary refill. Absent: motor deficit, sensory deficit, tendon deficit Gait: observed and normal - Back Exam Back exam: Present: normal inspection, full ROM. Absent: tenderness, CVA tenderness (R), CVA tenderness (L), vertebral tenderness - Neurological Exam Neurological exam: Present: alert, oriented X3, reflexes normal. Absent: CN II- XII intact, motor sensory deficit - Psychiatric Psychiatric exam: Present: normal affect, normal mood. Absent: agitated, anxious - Skin Skin exam: Present: warm, dry, intact, normal color. Absent: cyanosis, diaphoresis, pallor Course Course Narrative: 1906: Care has been discussed with the patient and family. Patient's daughter states that she is at her wits end because she has been weak and has increased falls. She states she went to the family doctor's office just this past week and almost fell coming out of the office. Today she was found on the ground he Does her daughter called back after leaving the house, did not get an answer and return to the house to check on her. She states she was down at the side of her bed and she is unable to get her off the ground herself. She is concerned that she will need hospitalization and possible alternative placement for her care. I advised that it would be best if we did have a urinalysis but that I talk to Dr. Denise as I feel she will need observed either way. If the urine ultimately shows infection and can be treated at that time. We will place a call to Dr. Denise to discuss her care. 1913: Care has been discussed with Dr. Denise. He is agreeable with observation and obtaining a urine as available on the inpatient floor. Verbal orders have been obtained for her observation. Vital Signs Temperature 98.7 F 12/14/18 17:56 Pulse Rate 66 12/14/18 17:56 Respiratory Rate 18 12/14/18 17:56 Blood Pressure 149/114 12/14/18 17:56 O2 Sat by Pulse Oximetry 96 12/14/18 17:56 Temperature 98.7 F 12/14/18 17:56 Pulse Rate 66 12/14/18 17:56 Respiratory Rate 18 12/14/18 17:56 Blood Pressure 149/114 12/14/18 17:56 O2 Sat by Pulse Oximetry 96 12/14/18 17:56 Oxygen Delivery Oxygen Delivery Room Air Weakness - Differential Diagnosis Differential Diagnosis: Likely: acute myocardial infarction, anemia, hypoglycemia, sepsis/infection, dehydration, medication effect, metabolic, thyroid/endocrine disorder - Medical Records Medical records reviewed: Yes I reviewed the patient's medical records. - Lab Data Lab results reviewed: Yes I reviewed the patient's lab results. Result diagrams: 12/14/18 18:08 12/14/18 18:08 Lab Results 12/14/18 12/14/18 12/14/18 Range/Units 18:08 18:08 18:08 WBC (4.3-11.1) K/mcL RBC (3.82-4.97) M/mcL Hgb (11.5-15.4) g/dL Hct (35.3-44.9) % MCV (83.0-100.0) fL MCH (28.0-33.3) pg MCHC (31.6-35.5) g/dL RDW (11.5-14.5) % Plt Count (140-400) K/mcL MPV (9.4-12.4) fL Immature Gran % (0-4) % Seg Neutrophils % % Lymphocytes % % Monocytes % % Eosinophils % % Basophils % % Neutrophils # (1.6-8.9) K/mcL Lymphocytes # (0.6-4.6) K/mcL Monocytes # (0.0-1.3) K/mcL Eosinophils # (0.0-0.6) K/mcL Basophils # (0.0-0.2) K/mcL ESR 57 H (0-30) mm/hr PT 11.2 (9.4-12.1) Seconds INR 1.0 Sodium (136-145) mEq/L Potassium (3.5-5.1) mEq/L Chloride (98-107) mEq/L Carbon Dioxide (23-29) mEq/L BUN (8-23) mg/dL Creatinine (0.60-1.20) mg/dL Est GFR ( Amer) (> 60) Est GFR (Non-Af Amer) (> 60) BUN/Creatinine Ratio (6-26) Glucose (70-105) mg/dL Calculated Osmolality (280-300) Lactic Acid 0.9 (0.5-2.2) mmol/L Calcium (8.6-10.3) mg/dL Magnesium (1.6-2.6) mg/dL Total Bilirubin (0.3-1.0) mg/dL AST (13-39) Units/L ALT (7-52) Units/L Alkaline Phosphatase (34-104) Units/L Troponin I (< 0.04) ng/mL Serum Total Protein (6.4-8.9) g/dL Albumin (3.5-5.7) g/dL Globulin (2.4-3.5) g/dL Albumin/Globulin Ratio (1.1-2.2) TSH (0.340-5.600) mcIU/mL 12/14/18 12/14/18 12/14/18 Range/Units 18:08 18:08 18:08 WBC 8.8 (4.3-11.1) K/mcL RBC 3.59 L (3.82-4.97) M/mcL Hgb 11.0 L (11.5-15.4) g/dL Hct 33.3 L (35.3-44.9) % MCV 92.8 (83.0-100.0) fL MCH 30.6 (28.0-33.3) pg MCHC 33.0 (31.6-35.5) g/dL RDW 12.9 (11.5-14.5) % Plt Count 279 (140-400) K/mcL MPV 9.4 (9.4-12.4) fL Immature Gran % 0.3 (0-4) % Seg Neutrophils % 57.7 % Lymphocytes % 31.8 % Monocytes % 8.1 % Eosinophils % 1.6 % Basophils % 0.5 % Neutrophils # 5.1 (1.6-8.9) K/mcL Lymphocytes # 2.8 (0.6-4.6) K/mcL Monocytes # 0.7 (0.0-1.3) K/mcL Eosinophils # 0.1 (0.0-0.6) K/mcL Basophils # 0.0 (0.0-0.2) K/mcL ESR (0-30) mm/hr PT (9.4-12.1) Seconds INR Sodium 135 L (136-145) mEq/L Potassium 3.9 (3.5-5.1) mEq/L Chloride 98 (98-107) mEq/L Carbon Dioxide 32 H (23-29) mEq/L BUN 19 (8-23) mg/dL Creatinine 1.18 (0.60-1.20) mg/dL Est GFR ( Amer) 54 L (> 60) Est GFR (Non-Af Amer) 45 L (> 60) BUN/Creatinine Ratio 16 (6-26) Glucose 144 H (70-105) mg/dL Calculated Osmolality 285 (280-300) Lactic Acid (0.5-2.2) mmol/L Calcium 8.6 (8.6-10.3) mg/dL Magnesium 1.6 (1.6-2.6) mg/dL Total Bilirubin 0.2 L (0.3-1.0) mg/dL AST 19 (13-39) Units/L ALT 15 (7-52) Units/L Alkaline Phosphatase 74 (34-104) Units/L Troponin I < 0.03 (< 0.04) ng/mL Serum Total Protein 7.2 (6.4-8.9) g/dL Albumin 3.7 (3.5-5.7) g/dL Globulin 3.5 (2.4-3.5) g/dL Albumin/Globulin Ratio 1.1 (1.1-2.2) TSH 4.389 (0.340-5.600) mcIU/mL - Radiology Data Radiology results reviewed: Yes I reviewed the patient's radiology results. Single view chest x-ray is performed. This does not demonstrate evidence for infiltrate, effusion, pneumothorax, foreign body or heart failure. The cardiac silhouette is enlarged. I do not see abnormality to the osseous structures of the chest. This is on my interpretation. Impressions Chest X-Ray 12/14/18 18:27 IMPRESSION: Low lung volumes. No acute abnormality identified. D/ / Daquan Iraheta MD / Daquan Iraheta MD Interpreting Provider: Daquan Iraheta MD - EKG Data EKG attestation: Yes I reviewed and interpreted this EKG. EKG shows normal: sinus rhythm, axis, intervals, QRS complexes, ST-T waves Rate: normal (64) Interpretation: no acute changes, nonspecific ST-T wave changes
[2018-12-14] MEDS ORDERED: 0.9 % Sodium Chloride 1,000 ML IVC SCH (18:00)
[2018-12-14 18:25] LABS: Basophils % 0.5 %; Eosinophils # 0.1 K/mcL (0.0-0.6); Eosinophils % 1.6 %; Hematocrit 33.3 % (35.3-44.9); Immature Granulocytes % 0.3 % (0-4); Lymphocytes # 2.8 K/mcL (0.6-4.6); Lymphocytes % 31.8 %; Mean Corpuscular Hemoglobin 30.6 pg (28.0-33.3); Mean Corpuscular Volume 92.8 fL (83.0-100.0); Mean Platelet Volume 9.4 fL (9.4-12.4); Monocytes # 0.7 K/mcL (0.0-1.3); Monocytes % 8.1 %; Neutrophils # 5.1 K/mcL (1.6-8.9); Platelet Count 279 K/mcL (140-400); Red Blood Count 3.59 M/mcL (3.82-4.97); Red Cell Distribution Width 12.9 % (11.5-14.5); Segmented Neutrophils % 57.7 %; White Blood Count 8.8 K/mcL (4.3-11.1)
[2018-12-14 18:38] LABS: Prothrombin Time 11.2 Seconds (9.4-12.1)
[2018-12-14 18:49] LABS: Alanine Aminotransferase 15 Units/L (7-52); Albumin 3.7 g/dL (3.5-5.7); Albumin/Globulin Ratio 1.1 (1.1-2.2); Alkaline Phosphatase 74 Units/L (34-104); Aspartate Amino Transferase 19 Units/L (13-39); BUN/Creatinine Ratio 16 (6-26); Bilirubin,Total 0.2 mg/dL (0.3-1.0); Blood Urea Nitrogen 19 mg/dL (8-23); Calcium 8.6 mg/dL (8.6-10.3); Carbon Dioxide 32 mEq/L (23-29); Chloride 98 mEq/L (98-107); Globulin 3.5 g/dL (2.4-3.5); Glucose 144 mg/dL (70-105); Magnesium 1.6 mg/dL (1.6-2.6); Osmolality,Calculated 285 (280-300); Potassium 3.9 mEq/L (3.5-5.1); Sodium 135 mEq/L (136-145); Total Protein 7.2 g/dL (6.4-8.9); Troponin I < 0.03 ng/mL (< 0.04); eGFR For African Americans 54 (> 60); eGFR For Non-African Americans 45 (> 60)
[2018-12-14 19:02] LABS: Thyroid Stimulating Hormone 4.389 mcIU/mL (0.340-5.600)
[2018-12-14] MEDS ORDERED: MOM Conc 10 ML UD.LIQ PO PRN (19:45)
[2018-12-14] MEDS ORDERED: *HR* Dextrose 50 % in Water (Syg) 50 ML SYRINGE IVP PRN (19:45)
[2018-12-14] MEDS ORDERED: Ondansetron ODT 4 MG TAB.RAPDIS SL PRN (19:45)
[2018-12-14] MEDS ORDERED: Naloxone 0.4 MG/ML INJ IVP PRN (19:45)
[2018-12-14] MEDS ORDERED: Dextrose Gel 15 GM/37.5 ML TUBE PO PRN ×2 (19:45)
[2018-12-14] MEDS ORDERED: D5% in Water 1,000 ML IVC PRN (19:45)
[2018-12-14] MEDS ORDERED: Mag Hydrox/Al Hydrox/Simeth 30 ML UDC PO PRN (19:45)
[2018-12-14] MEDS: 0.9 % Sodium Chloride 1,000 ML IVC SCH (22:00)
[2018-12-15] MEDS: Insulin LISPRO 300 UNITS/3 ML VIAL SQ SCH ×3 (07:43→16:01)
[2018-12-15] MEDS: 0.9 % Sodium Chloride 1,000 ML IVC SCH (07:46)
--- NOTE | 2018-12-15 11:25 | Internal Med History&Physical ---
Date of Encounter: 12/15/18 Time of Encounter: 10:55 Assessment and Plan (1) Acute renal failure Current visit: No Status: Acute Creatinine has risen to 1.18 increased from 0.63 on 12/17/2017. Losartan will be held and IV fluids will be given. Renal indices will be monitored. Qualifiers: Acute renal failure type: unspecified Qualified Code(s): N17.9 - Acute kidney failure, unspecified (2) Recurrent falls Current visit: Yes Status: Acute PT and OT evaluations will be done. Orthostatic vital signs will be checked. Telemetry monitoring will be done. (3) DM type 2 (diabetes mellitus, type 2) Current visit: No Status: Chronic Hemoglobin A1c will be checked in a.m. Continue Accu-Cheks with SSI. Qualifiers: Diabetes mellitus chcf insulin use: without chcf use Diabetes mellitus complication status: without complication Qualified Code(s): E11.9 - Type 2 diabetes mellitus without complications (4) Hypertension Current visit: No Status: Chronic Orthostatic vital signs will be checked in a.m. Hold lisinopril, amlodipine, losartan, and Coreg. Qualifiers: Hypertension type: essential hypertension Qualified Code(s): I10 - Esse ntial (primary) hypertension (5) ASHD (arteriosclerotic heart disease) Current visit: No Status: Chronic Continue Imdur and Plavix. (6) Dementia Current visit: No Status: Chronic MMSE will be ordered. Qualifiers: Dementia type: unspecified type Dementia behavioral disturbance: without behavioral disturbance Qualified Code(s): F03.90 - Unspecified dementia without behavioral disturbance Internal Medicine - H&P: HPI Chief complaint: Multiple falls, weakness Admitted From: Emergency Dept Plans for Post Hospital Care: Home History of present illness: Ms. Pisano is a 77 year old female who came to emergency room after having multiple falls at home in the past week. She denies significant injury. She denies syncope or near-syncope, loss of footing, or any known reason for falls. She was evaluated in emergency room and admitted to [facility] floor for ongoing care needs. She denies orthostatic symptoms on arising from a seated position. Neurologic history is negative for documented large distribution strokes or seizures. She has diabetic peripheral neuropathy. MMSE during November 2017 hospitalization showed scored 18/30. She was started on Exelon patch 4.6 mg daily but states she did not receive a prescription refill after the initial month supply. Cardiovascular history is significant for hypertension and known ASHD with 5 stents placed. She thinks most recent stent was July 2015 at [facility]. Heart cath report from [facility] 05/16/2016 showed left ventriculogram was not done. There was 50-60% stenosis in the proximal LAD, 10-20% in-stent restenosis in the mid LAD, 10-20% in-stent restenosis in the proximal left circumflex, and 20-30% in-stent restenosis in the mid ramus intermedius. She has remained clinically stable on Plavix, Coreg, and Imdur. She denies heart failure CT DVT or pulmonary embolus. Past Med Surg Social Fam HX - Past Medical History Medical history: arthritis, coronary artery disease, diabetes, hypertension, other Additional medical history: 4 CARDIAC STENTS Psychiatric history: depression - Past Surgical History Surgical History: angioplasty/stent, hysterectomy, orthopedic, other Additional surgical history: heart stents x5, back surgeries x2 - Social History Smoking Status: Never smoker Smokeless Tobacco Status: No Alcohol use: rarely Drug use: none - Family History Mother Hx Family Endocrine Disorder: Yes (DM) Brother Hx Family Cardiac Disorders: Yes Sister Hx Family Cardiac Disorders: Yes (CT) Internal Medicine - H&P: Meds Losartan Potassium [Cozaar] 50 mg PO BID 05/15/15 [History] Atorvastatin [Lipitor] 40 mg PO HS 06/14/15 [History] Clopidogrel [Plavix] 75 mg PO DAILY 06/14/15 [History] Isosorbide MONOnitrate (24 HR) [Imdur] 30 mg PO DAILY 06/14/15 [History] Gabapentin [Neurontin] 300 mg PO DAILY #0 06/24/15 [Rx] metFORMIN [Glucophage] 500 mg PO 0800 365 Days tablet 06/24/15 [Rx] HYDROcodone/Acet 5/325 mg [[place] 5-325 mg] 1 tab PO Q4H PRN #15 tab 01/01/17 [Rx] Sertraline [Zoloft] 100 mg PO DAILY 01/01/17 [History] Tramadol HCl [Ultram] 50 mg PO BID PRN 01/01/17 [History] Acetaminophen [Tylenol] 650 mg PO Q6HR tablet 06/30/17 [Rx] Primidone [Mysoline] 50 mg PO TID 07/07/17 [History] ALPRAZolam [Xanax 0.25 MG Tablet] 0.25 mg PO BID PRN 14 Days #28 tablet 12/10/17 [Rx] Esomeprazole Magnesium [Nexium] 40 mg PO DAILY PRN #0 12/10/17 [Rx] Rivastigmine Patch [Exelon] 4.6 mg TD DAILY patch.td24 12/10/17 [Rx] Carvedilol [Coreg] 12.5 mg PO BIDWM 12/14/18 [History] Lisinopril 20 mg PO DAILY 12/14/18 [History] amLODIPine 10 mg PO DAILY 12/14/18 [History] Allergy/AdvReac Type Severity Reaction Status Date / Time lorazepam [From Ativan] AdvReac Hallucinati Verified 12/14/18 17:53 ng All Systems PM: A 10-system review of systems was performed and is negative for pertinent findings except as documented above in the HPI. Review of systems: Review of systems from her November 2017 [facility] hospitalization were reviewed and revised as below. Gen.: Her weight decreased from 76.657 kg on 07/07/2017 to 71.2 kg on admission November 2017 but has increased to 84.822 kilograms on admission now. Cardiovascular: As per history of present illness Respiratory: She is a lifelong nonsmoker and has no known chronic lung disease. GI: She has GERD but denies other disorders of her liver gallbladder or exocrine pancreas. : She denies hematuria dysuria or kidney stones. Neurologic: As per history of present illness Endocrine: She was diagnosed with DM 2 approximately 2009. Hemoglobin A1c was 5.6% on 12/09/2017. She has hyperlipidemia but no known thyroid disease. Hematology/oncology: She denies blood disorders cancers or anemia. Psychiatric: She has anxiety and depression but denies other mental health issues Musk skeletal: She had T12 compression fracture June 2017 with [facility] hospitalization. She had previous posterior lumbar fusion and discectomy L3-5 approximately 20 years ago. She has grade 1 anterolisthesis of L2 on L3. She has osteoporosis but denies gout or other bone joint or muscle disorders. - Constitutional Vitals: Temp Pulse Resp BP Pulse Ox 98.4 F 66 17 148/71 91 12/15/18 06:39 12/15/18 06:39 12/15/18 06:39 12/15/18 06:39 12/15/18 06:39 Exam: Gen.: She is a well-developed well-nourished female resting comfortably in bed who appears in no acute distress HEENT: Head is atraumatic and normocephalic. Eyes: EOMI. There is no scleral icterus. Mouth: Mucosa is moist. Neck: Supple and nontender. There is no thyromegaly or adenopathy noted. Heart: Regular without murmurs gallops or ectopics Lungs: No wheezes or crackles are heard. Abdomen: Soft and nontender. No masses or guarding are noted. Extremities: There is no cyanosis edema or clubbing noted. Dorsalis pedis and posterior tibial pulses are trace to 1+ palpable bilaterally. Neurologic: Mental status: She is talkative and appropriate historian. Cranial nerves: Smile is symmetric. Forehead wrinkles bilaterally. Tongue protrudes midline. EOMI. Motor: There is no pronator drift. Ankle flexion and extension strength against resistance is 2 over 2 bilaterally. She is able to lift both legs off the bed on straight leg lift maneuver. Cerebellar: Finger to nose is intact bilaterally. Skin: Warm and dry Internal Med - H&P Results - Labs CBC & Chem 7: 12/14/18 18:08 12/14/18 18:08 Labs: Short CBC 12/14/18 Range/Units 18:08 WBC 8.8 (4.3-11.1) K/mcL Hgb 11.0 L (11.5-15.4) g/dL Hct 33.3 L (35.3-44.9) % Plt Count 279 (140-400) K/mcL Neutrophils # 5.1 (1.6-8.9) K/mcL BMP 12/14/18 18:08 Sodium 135 L Potassium 3.9 Chloride 98 Carbon Dioxide 32 H BUN 19 Creatinine 1.18 Glucose 144 H Calcium 8.6 Cardiac Enzymes 12/14/18 Range/Units 18:08 Troponin I < 0.03 (< 0.04) ng/mL Liver Function 12/14/18 Range/Units 18:08 Total Bilirubin 0.2 L (0.3-1.0) mg/dL AST 19 (13-39) Units/L ALT 15 (7-52) Units/L Alkaline Phosphatase 74 (34-104) Units/L Albumin 3.7 (3.5-5.7) g/dL - Impressions ITS Impressions Chest X-Ray 12/14/18 18:27 IMPRESSION: Low lung volumes. No acute abnormality identified. D/ / Daquan Iraheta MD / Daquan Iraheta MD Interpreting Provider: Daquan Iraheta MD
[2018-12-15] MEDS ORDERED: *HR* Dextrose 50 % in Water (Vial) 50 ML VIAL IVP PRN (11:47)
[2018-12-15] MEDS: Isosorbide MONOnitrate (24 HR) 30 MG TAB.ER.24H PO SCH (12:36)
[2018-12-15] MEDS: ALPRAZolam 0.25 MG TABLET PO PRN ×2 (12:52→20:52)
[2018-12-16 00:55] LABS: Bilirubin,Urine Negative (Negative); Blood,Urine Trace-intact (Negative); Clarity,Urine Hazy (Clear); Color,Urine Light Yellow (Yellow); Glucose,Urine (UA) Normal (Normal); Ketones,Urine Negative (Negative); Leukocyte Esterase,Urine Small (Negative); Nitrite,Urine Negative (Negative); Protein,Urine Negative (Neg-Trace); Specific Gravity,Urine 1.015 (1.010-1.025); Urobilinogen,Urine Normal (Normal)
[2018-12-16 01:09] LABS: Squamous Epithelial Cell,Urine Moderate per lpf (None-Few)
[2018-12-16 01:10] LABS: Bacteria,Urine Moderate per hpf (None-Few); RBC,Urine 0-3 per hpf (0-3)
[2018-12-16] MEDS: *HR* Enoxaparin 40 MG/0.4 ML SYRINGE SQ SCH (06:39)
[2018-12-16] MEDS: Isosorbide MONOnitrate (24 HR) 30 MG TAB.ER.24H PO SCH (07:35)
[2018-12-16] MEDS: Insulin LISPRO 300 UNITS/3 ML VIAL SQ SCH ×3 (07:35→16:56)
[2018-12-16 08:00] LABS: Basophils % 0.4 %; Eosinophils # 0.2 K/mcL (0.0-0.6); Hematocrit 36.9 % (35.3-44.9); Hemoglobin 12.4 g/dL (11.5-15.4); Immature Granulocytes % 0.3 % (0-4); Lymphocytes # 2.8 K/mcL (0.6-4.6); Lymphocytes % 29.4 %; Mean Corpuscular HGB Conc 33.6 g/dL (31.6-35.5); Mean Corpuscular Hemoglobin 30.8 pg (28.0-33.3); Mean Corpuscular Volume 91.8 fL (83.0-100.0); Mean Platelet Volume 9.8 fL (9.4-12.4); Monocytes # 0.6 K/mcL (0.0-1.3); Monocytes % 6.7 %; Neutrophils # 5.8 K/mcL (1.6-8.9); Platelet Count 331 K/mcL (140-400); Red Blood Count 4.02 M/mcL (3.82-4.97); Red Cell Distribution Width 12.7 % (11.5-14.5); Segmented Neutrophils % 61.2 %; White Blood Count 9.4 K/mcL (4.3-11.1)
[2018-12-16 08:20] LABS: BUN/Creatinine Ratio 16 (6-26); Blood Urea Nitrogen 15 mg/dL (8-23); Calcium 9.3 mg/dL (8.6-10.3); Carbon Dioxide 30 mEq/L (23-29); Chloride 99 mEq/L (98-107); Glucose 196 mg/dL (70-105); Osmolality,Calculated 288 (280-300); Potassium 4.1 mEq/L (3.5-5.1); Sodium 136 mEq/L (136-145); eGFR For African Americans > 60 (> 60); eGFR For Non-African Americans > 60 (> 60)
[2018-12-16] MEDS ORDERED: Lisinopril 20 MG TABLET PO SCH (09:00)
[2018-12-16] MEDS ORDERED: Metoprolol XL (24 HR) Succ 50 MG TAB.ER.24H PO SCH (09:00)
[2018-12-16] MEDS: amLODIPine 5 MG TABLET PO SCH (09:29)
--- NOTE | 2018-12-16 10:07 | Electrocardiograph Report ---
[place] [id number] Test Date: 2018-12-14 Pat Name: Tracee Pisano Department: EDP-14 Room: [facility] Gender: F Controlled Area Checker: : 1940 Requested By: Aric Steiner Order Number: [id number] Reading MD: Casi Gann Measurements Intervals [place] Rate: 64 P: 19 CT: 142 QRS: 29 QRSD: 84 T: -12 QT: 407 QTc: 420 Interpretive Statements Sinus rhythm Anteroseptal infarct, age indeterminate Electronically Signed On 12-16-2018 10:06:14 EDT by Casi Gann
--- NOTE | 2018-12-16 10:18 | Internal Med Progress Note ---
Date of Encounter: 12/16/18 Time of Encounter: 10:05 - Assessment and plan (1) Acute renal failure Current Visit: No Status: Acute Assessment and plan: December 16. BUN and creatinine have decreased to 15 and 0.91 respectively with estimated GFR> 60. Continue IV fluids. Revised home medication list shows lisinopril use instead of losartan. This will be held. Qualifiers: Acute renal failure type: unspecified Qualified Code(s): N17.9 - Acute kidney failure, unspecified (2) Recurrent falls Current Visit: Yes Status: Acute Assessment and plan: December 16. Orthostatic vital signs showed heart rate increasing from 71 to 85 and blood pressure decreasing from 203/83 to 187/105 lying to standing. Restart amlodipine and Coreg and recheck orthostatic vital signs in a.m. (3) DM type 2 (diabetes mellitus, type 2) Current Visit: No Status: Chronic Assessment and plan: December 16. Hemoglobin A1c pending. Accu-Cheks acceptable. Qualifiers: Diabetes mellitus replenisher insulin use: without replenisher use Diabetes mellitus complication status: without complication Qualified Code(s): E11.9 - Type 2 diabetes mellitus without complications (4) Hypertension Current Visit: No Status: Chronic Assessment and plan: December 16. Baseline blood pressure elevated. Restart amlodipine and Coreg but hold lisinopril. Qualifiers: Hypertension type: essential hypertension Qualified Code(s): I10 - Essential (primary) hypertension (5) ASHD (arteriosclerotic heart disease) Current Visit: No Status: Chronic Assessment and plan: December 16. Continue Plavix, Coreg, and Imdur (6) Dementia Current Visit: No Status: Chronic Assessment and plan: December 16. MMSE showed score WNL of 26/. Qualifiers: Dementia type: unspecified type Dementia behavioral disturbance: without behavioral disturbance Qualified Code(s): F03.90 - Unspecified dementia without behavioral disturbance (7) Anemia Current Visit: Yes Status: Acute Assessment and plan: December 16. Hemoglobin in ER was 11.0. It has risen to WNL at 12.4 today. Anemia testing drawn this morning pending. Qualifiers: Anemia type: unspecified type Qualified Code(s): D64.9 - Anemia, unspecified - Subjective Interval history: December 16. She has no new complaints. She stated she wished to go home. - Constitutional Vitals: Temp Pulse Resp BP Pulse Ox 98.9 F 71 17 203/83 95 12/16/18 06:08 12/16/18 07:21 12/16/18 06:08 12/16/18 07:21 12/16/18 06:08 Exam: She is resting comfortably in bed and appears in no acute distress. Her affect is cheerful. I reviewed her medications, labs, and vital signs. Internal Medicine: Result - Labs CBC & Chem 7: 12/16/18 07:26 12/16/18 07:26 Labs: Short CBC 12/16/18 Range/Units 07:26 WBC 9.4 (4.3-11.1) K/mcL Hgb 12.4 (11.5-15.4) g/dL Hct 36.9 (35.3-44.9) % Plt Count 331 (140-400) K/mcL Neutrophils # 5.8 (1.6-8.9) K/mcL BMP 12/16/18 07:26 Sodium 136 Potassium 4.1 Chloride 99 Carbon Dioxide 30 H BUN 15 Creatinine 0.91 Glucose 196 H Calcium 9.3 Urine 12/16/18 Range/Units 00:51 Urine Color Light Yellow (Yellow) Urine Clarity Hazy A (Clear) Urine pH 7.0 (5.0-8.0) pH Units Ur Specific [place] 1.015 (1.010-1.025) Urine Protein Negative (Neg-Trace) mg/dL Urine Glucose (UA) Normal (Normal) mg/dL - ABG Interpretation ABG results: PT/INR, D-dimer PT 11.2 Seconds (9.4-12.1) 12/14/18 18:08 Consult Discharge Plan - Plan Referrals: Tania Morales MD [Primary Care Provider] - 1 week
[2018-12-16] MEDS: ALPRAZolam 0.25 MG TABLET PO PRN (11:44)
[2018-12-16 13:21] LABS: Estimated Average Glucose 183 mg/dl
[2018-12-16 13:25] LABS: % Iron Saturation 17 % (15-50); Iron 65 mcg/dL (50-170); Transferrin 271 mg/dL (203-362)
[2018-12-16 13:41] LABS: Ferritin 52 ng/mL (10-120)
[2018-12-16 14:09] LABS: Folate > 22.3 ng/mL (3.0-16.0); Vitamin B12 587 pg/mL (250-1100); Vitamin D 25 Hydroxy 23 ng/mL (30-80)
[2018-12-16] MEDS: Primidone 50 MG TABLET PO SCH (16:56)
[2018-12-16] MEDS: Acetaminophen 325 MG TABLET PO PRN (19:00)
[2018-12-16] MEDS: Gabapentin 300 MG CAPSULE PO SCH (19:35)
[2018-12-17] MEDS: Primidone 50 MG TABLET PO SCH ×3 (00:10→17:11)
[2018-12-17] MEDS: ALPRAZolam 0.25 MG TABLET PO PRN ×2 (00:10→21:34)
[2018-12-17] MEDS: Acetaminophen 325 MG TABLET PO PRN (04:35)
[2018-12-17] MEDS: *HR* Enoxaparin 40 MG/0.4 ML SYRINGE SQ SCH (05:33)
[2018-12-17 06:52] LABS: BUN/Creatinine Ratio 16 (6-26); Blood Urea Nitrogen 14 mg/dL (8-23); Carbon Dioxide 29 mEq/L (23-29); Chloride 99 mEq/L (98-107); Glucose 174 mg/dL (70-105); Osmolality,Calculated 287 (280-300); Potassium 3.6 mEq/L (3.5-5.1); Sodium 136 mEq/L (136-145); eGFR For African Americans > 60 (> 60); eGFR For Non-African Americans > 60 (> 60)
[2018-12-17] MEDS: Isosorbide MONOnitrate (24 HR) 30 MG TAB.ER.24H PO SCH (08:31)
[2018-12-17] MEDS: Gabapentin 300 MG CAPSULE PO SCH ×2 (08:31→19:35)
[2018-12-17] MEDS: amLODIPine 5 MG TABLET PO SCH (08:32)
[2018-12-17] MEDS: Insulin LISPRO 300 UNITS/3 ML VIAL SQ SCH ×3 (08:32→16:33)
[2018-12-17] MEDS: *HR* Metformin 500 MG TABLET PO SCH (08:32)
[2018-12-18] MEDS: *HR* Enoxaparin 40 MG/0.4 ML SYRINGE SQ SCH (05:43)
[2018-12-18 06:31] VITALS: BP 173/74
[2018-12-18] MEDS: Primidone 50 MG TABLET PO SCH ×2 (09:27)
[2018-12-18] MEDS: Gabapentin 300 MG CAPSULE PO SCH (09:27)
[2018-12-18] MEDS: amLODIPine 5 MG TABLET PO SCH (09:28)
[2018-12-18] MEDS: *HR* Metformin 500 MG TABLET PO SCH (09:28)
[2018-12-18] MEDS: Insulin LISPRO 300 UNITS/3 ML VIAL SQ SCH ×2 (09:28→11:11)
[2018-12-18] MEDS: Isosorbide MONOnitrate (24 HR) 30 MG TAB.ER.24H PO SCH (09:28)
--- NOTE | 2018-12-18 11:11 | Discharge Summary ---
Date of Encounter: 12/18/18 Time of Encounter: 10:53 - Discharge Diagnosis (1) Acute renal failure Priority: Primary Status: Resolved Qualifiers: Acute renal failure type: unspecified Qualified Code(s): N17.9 - Acute kidney failure, unspecified (2) Recurrent falls Priority: Secondary Status: Acute (3) DM type 2 (diabetes mellitus, type 2) Priority: Secondary Status: Chronic Qualifiers: Diabetes mellitus termite renewal inspector insulin use: without termite renewal inspector use Diabetes mellitus complication status: without complication Qualified Code(s): E11.9 - Type 2 diabetes mellitus without complications (4) Hypertension Priority: Secondary Status: Chronic Qualifiers: Hypertension type: essential hypertension Qualified Code(s): I10 - Essential (primary) hypertension (5) ASHD (arteriosclerotic heart disease) Priority: Secondary Status: Chronic (6) Dementia Priority: Secondary Status: Chronic Qualifiers: Dementia type: unspecified type Dementia behavioral disturbance: without behavioral disturbance Qualified Code(s): F03.90 - Unspecified dementia without behavioral disturbance (7) Anemia Priority: Secondary Status: Acute Qualifiers: Anemia type: unspecified type Qualified Code(s): D64.9 - Anemia, unspecified Hospital course: Ms. Pisano is a 77 year old female who came to emergency room after having multiple falls at home in the past week. She denies significant injury. She denies syncope or near-syncope, loss of footing, or any known reason for falls. She was evaluated in emergency room and admitted to [facility] floor for ongoing care needs. I saw her on December 15 and performed a history and physical. She was started on IV fluids. Losartan/lisinopril was held. BUN and creatinine normalized to 14 and 0.90 respectively by December 17 with estimated GFR > 60. She will remain off these medications at discharge. Anemia resolved with hemoglobin rising to 12.4 on December 16. Anemia testing showed iron 65, transferrin saturation 17%, transferrin 271, ferritin 52, B12 587, and folate> 22.3. TSH was WNL at 4.389. PT and OT evaluations with ongoing intervention were done. It was felt she would benefit from ongoing therapy at [facility]. Approval was received on December 18 for discharge to [facility]. - Time Spent with Patient Total time spent providing and/or coordinating discharge services: - Discharge Medications Prescriptions: New MOM Conc [MILK OF MAGNESIA conc] 10 ml PO DAILY PRN ud.liq PRN Reason: Constipation Continued Isosorbide MONOnitrate (24 HR) [Imdur] 30 mg PO DAILY Atorvastatin [Lipitor] 40 mg PO HS Clopidogrel [Plavix] 75 mg PO DAILY metFORMIN [Glucophage] 500 mg PO 0800 365 Days tablet Sertraline [Zoloft] 100 mg PO DAILY Acetaminophen [Tylenol] 650 mg PO Q6HR tablet Primidone [Mysoline] 100 mg PO TID Esomeprazole Magnesium [Nexium] 40 mg PO DAILY PRN #0 PRN Reason: Dyspepsia Carvedilol [Coreg] 12.5 mg PO BIDWM amLODIPine [Norvasc] 10 mg PO DAILY Memantine HCl [Memantine HCl ER] 28 mg PO DAILY Gabapentin [Neurontin] 300 mg PO BID Donepezil [Aricept] 5 mg PO HS ALPRAZolam [Xanax 0.25 MG Tablet] 0.25 mg PO BID PRN 14 Days #28 tablet PRN Reason: Anxiety Discontinued HYDROcodone/Acet 5/325 mg [[place] 5-325 mg] 1 tab PO Q4H PRN #15 tab PRN Reason: Pain Lisinopril [Zestril] 20 mg PO DAILY Lactobacillus [Culturelle] 1 each PO DAILY Metoprolol Succinate [Toprol Xl] 50 mg PO DAILY Home Medications: Atorvastatin [Lipitor] 40 mg PO HS 06/14/15 [History] Clopidogrel [Plavix] 75 mg PO DAILY 06/14/15 [History] Isosorbide MONOnitrate (24 HR) [Imdur] 30 mg PO DAILY 06/14/15 [History] metFORMIN [Glucophage] 500 mg PO 0800 365 Days tablet 06/24/15 [Rx] Sertraline [Zoloft] 100 mg PO DAILY 01/01/17 [History] Acetaminophen [Tylenol] 650 mg PO Q6HR tablet 06/30/17 [Rx] Primidone [Mysoline] 100 mg PO TID 07/07/17 [History] Esomeprazole Magnesium [Nexium] 40 mg PO DAILY PRN #0 12/10/17 [Rx] Carvedilol [Coreg] 12.5 mg PO BIDWM 12/14/18 [History] amLODIPine [Norvasc] 10 mg PO DAILY 12/14/18 [History] Donepezil [Aricept] 5 mg PO HS 12/16/18 [History] Gabapentin [Neurontin] 300 mg PO BID 12/16/18 [History] Memantine HCl [Memantine HCl ER] 28 mg PO DAILY 12/16/18 [History] ALPRAZolam [Xanax 0.25 MG Tablet] 0.25 mg PO BID PRN 14 Days #28 tablet 12/18/18 [Rx] MOM Conc [MILK OF MAGNESIA conc] 10 ml PO DAILY PRN ud.liq 12/18/18 [Rx] Allergies/Adverse Reactions: Allergy/AdvReac Type Severity Reaction Status Date / Time lorazepam [From Ativan] AdvReac Hallucinati Verified 12/14/18 17:53 ng Date of admission: 12/15/18 11:43 Primary care physician: Tania Morales Consults: 12/14/18 19:45 Consult to Lining Baster [CONS] Routine Reason for SW Consult: Weakness, recurrent falls, impaired ADLs, evaluation for additional services or placement. 12/15/18 11:33 Consult to Occupational Therapy [CONS] Routine Comment: Evaluate, develop and implement POC Reason for Consult: Multiple falls Does patient have active BEDREST order?: No Is patient medically & hemodynamically stable?: Yes Patient assessed for mobility or mobilized this visit?: Yes Consult to Physical Therapy [CONS] Routine Comment: Evaluate, develop and implement POC Reason for Consult: Multiple falls Does patient have active BEDREST order?: No Is patient medically & hemodynamically stable?: Yes Patient assessed for mobility or mobilized this visit?: Yes - Constitutional Vitals: Temp Pulse Resp BP Pulse Ox 98.6 F 74 17 173/74 94 12/18/18 06:28 12/18/18 06:28 12/18/18 06:28 12/18/18 06:28 12/18/18 06:28 - Patient Status Disposition: Transfer SNF Condition: Fair - Discharge Instructions - Diet and Activity Activity: as per physical therapy Diet: diabetic diet
--- NOTE | 2018-12-18 11:22 | Physician Discharge Referral ---
ExtendedCare Referral Info Transfer To: [facility] Provider in Charge: Howie Provider in Charge after Transfer: PCP (Howie) - Diagnosis (1) Acute renal failure Priority: Primary Status: Resolved (2) Recurrent falls Priority: Secondary Status: Acute (3) DM type 2 (diabetes mellitus, type 2) Priority: Secondary Status: Chronic (4) Hypertension Priority: Secondary Status: Chronic (5) ASHD (arteriosclerotic heart disease) Priority: Secondary Status: Chronic (6) Dementia Priority: Secondary Status: Chronic (7) Anemia Priority: Secondary Status: Acute Prognosis: Fair Aware of Diagnosis: Patient, Family Aware of Prognosis: Patient, Family - Transfer Medications Prescriptions: ALPRAZolam [Xanax 0.25 MG Tablet] 0.25 mg PO BID PRN 14 Days #28 tablet PRN Reason: Anxiety Prescription Printed Home Medications: Atorvastatin [Lipitor] 40 mg PO HS 06/14/15 [History] Clopidogrel [Plavix] 75 mg PO DAILY 06/14/15 [History] Isosorbide MONOnitrate (24 HR) [Imdur] 30 mg PO DAILY 06/14/15 [History] metFORMIN [Glucophage] 500 mg PO 0800 365 Days tablet 06/24/15 [Rx] Sertraline [Zoloft] 100 mg PO DAILY 01/01/17 [History] Acetaminophen [Tylenol] 650 mg PO Q6HR tablet 06/30/17 [Rx] Primidone [Mysoline] 100 mg PO TID 07/07/17 [History] Esomeprazole Magnesium [Nexium] 40 mg PO DAILY PRN #0 12/10/17 [Rx] Carvedilol [Coreg] 12.5 mg PO BIDWM 12/14/18 [History] amLODIPine [Norvasc] 10 mg PO DAILY 12/14/18 [History] Donepezil [Aricept] 5 mg PO HS 12/16/18 [History] Gabapentin [Neurontin] 300 mg PO BID 12/16/18 [History] Memantine HCl [Memantine HCl ER] 28 mg PO DAILY 12/16/18 [History] ALPRAZolam [Xanax 0.25 MG Tablet] 0.25 mg PO BID PRN 14 Days #28 tablet 12/18/18 [Rx] MOM Conc [MILK OF MAGNESIA conc] 10 ml PO DAILY PRN ud.liq 12/18/18 [Rx] Allergies/Adverse Reactions: Allergy/AdvReac Type Severity Reaction Status Date / Time lorazepam [From Ativan] AdvReac Hallucinati Verified 12/14/18 17:53 ng - Respiratory Orders Smoking Cessation: Smoking cessation has been advised. For more information, call the [place] Tobacco Quit Line at 6-184-MVLH-NOW. - Rehabiliation Orders Rehab Potential: Fair Rehab Orders: Evaluation for Physical Therapy, Evaluation for Occupational Therapy - Diet Orders No Concentrated Sweets CERTIFICATION: I certify that the transfer of the above named patient to an Extended Care Facility is necessary for the continuing treatment of the diagnosis listed. The above information is true and accurate reflection of patient's current condition. Confidential - Redisclosure prohibited without a patient's written consent.
== END 2018-12-18 13:00 | DRG 683 ==
LOC: EMEROOPIK 17:51 → INPPIK 17:51
PROVIDERS: ADMIT Internal Medicine; ATTEND Internal Medicine

== ENCOUNTER 2020-10-28 12:27 | Inpatient (IN) ==
[2020-10-28 13:31] LABS: Basophils % 0.4 %; Eosinophils # 0.1 K/mcL (0.0-0.6); Eosinophils % 1.3 %; Hematocrit 36.2 % (35.3-44.9); Hemoglobin 12.1 g/dL (11.5-15.4); Immature Granulocytes % 0.3 % (0-4); Lymphocytes # 2.5 K/mcL (0.6-4.6); Lymphocytes % 22.7 %; Mean Corpuscular HGB Conc 33.4 g/dL (31.6-35.5); Mean Corpuscular Hemoglobin 31.6 pg (28.0-33.3); Mean Corpuscular Volume 94.5 fL (83.0-100.0); Mean Platelet Volume 9.2 fL (9.4-12.4); Monocytes # 0.7 K/mcL (0.0-1.3); Monocytes % 6.5 %; Neutrophils # 7.6 K/mcL (1.6-8.9); Platelet Count 337 K/mcL (140-400); Red Blood Count 3.83 M/mcL (3.82-4.97); Red Cell Distribution Width 11.9 % (11.5-14.5); Segmented Neutrophils % 68.8 %
[2020-10-28 13:39] LABS: Prothrombin Time 11.7 Seconds (9.4-12.1)
[2020-10-28 13:41] LABS: Activated Partial Thrombo Time 25.2 Seconds (26.0-36.0)
[2020-10-28 13:50] LABS: Alanine Aminotransferase 23 Units/L (7-52); Albumin/Globulin Ratio 1.1 (1.1-2.2); Alkaline Phosphatase 66 Units/L (34-104); Aspartate Amino Transferase 26 Units/L (13-39); BUN/Creatinine Ratio 18 (6-26); Bilirubin,Total 0.3 mg/dL (0.3-1.0); Blood Urea Nitrogen 18 mg/dL (8-23); Carbon Dioxide 26 mEq/L (23-29); Chloride 96 mEq/L (98-107); Globulin 3.5 g/dL (2.4-3.5); Glucose 156 mg/dL (70-105); Magnesium 1.5 mg/dL (1.6-2.6); Osmolality,Calculated 281 (280-300); Phosphorous 3.1 mg/dL (2.7-4.5); Sodium 133 mEq/L (136-145); Total Protein 7.5 g/dL (6.4-8.9); Troponin I < 0.03 ng/mL (< 0.04); eGFR For African Americans > 60 (> 60); eGFR For Non-African Americans 53 (> 60)
[2020-10-28 14:15] LABS: Bilirubin,Urine Negative (Negative); Blood,Urine Trace-intact (Negative); Clarity,Urine Clear (Clear); Color,Urine Yellow (Yellow); Glucose,Urine (UA) Normal (Normal); Ketones,Urine Negative (Negative); Leukocyte Esterase,Urine Trace (Negative); Nitrite,Urine Negative (Negative); Protein,Urine Negative (Neg-Trace); Urobilinogen,Urine Normal (Normal)
[2020-10-28 14:25] LABS: RBC,Urine 0-3 per hpf (0-3)
[2020-10-28 14:26] LABS: Bacteria,Urine Few per hpf (None-Few); Squamous Epithelial Cell,Urine Few per hpf (None-Few)
[2020-10-28] MEDS ORDERED: 0.9 % Sodium Chloride 1,000 ML IV ONE (14:31)
[2020-10-28] MEDS ORDERED: Isovue-370 500 ML BOTTLE IVP ONE (14:32)
[2020-10-28] MEDS ORDERED: cefTRIAXone 1,000 MG in 0.9 % Sodium Chloride Mini Bag 100 ML IVPB ONE (14:33)
[2020-10-28] MEDS ORDERED: Naloxone 0.4 MG/ML INJ IVP PRN (16:24)
[2020-10-28] MEDS ORDERED: Ondansetron 4 MG/2 ML VIAL IVP PRN (16:24)
[2020-10-28] MEDS ORDERED: Mag Hydrox/Al Hydrox/Simeth 30 ML UDC PO PRN (16:24)
[2020-10-28] MEDS ORDERED: MOM Conc 10 ML UD.LIQ PO PRN (16:24)
[2020-10-28] MEDS ORDERED: Dextrose Gel 15 GM/37.5 ML TUBE PO PRN ×2 (16:31)
[2020-10-28] MEDS ORDERED: D5% in Water 1,000 ML IVC PRN (16:31)
[2020-10-28] MEDS ORDERED: *HR* Dextrose 50 % in Water (Vial) 50 ML VIAL IVP PRN (16:31)
[2020-10-28] MEDS: carvediloL 6.25 MG TABLET PO SCH (17:34)
[2020-10-28] MEDS ORDERED: Primidone 50 MG TABLET PO SCH (21:00)
[2020-10-28] MEDS: Acetaminophen 325 MG TABLET PO PRN (21:41)
[2020-10-28] MEDS: Primidone 50 MG TABLET PO SCH (21:41)
[2020-10-28] MEDS: Gabapentin 300 MG CAPSULE PO SCH (21:41)
[2020-10-28] MEDS: ALPRAZolam 0.25 MG TABLET PO PRN (21:41)
[2020-10-28] MEDS: 0.9 % Sodium Chloride 1,000 ML IVC SCH (21:42)
[2020-10-28] MEDS: Insulin LISPRO 300 UNITS/3 ML VIAL SUBQ SCH (21:42)
[2020-10-29] MEDS: Insulin LISPRO 300 UNITS/3 ML VIAL SUBQ SCH ×4 (07:37→20:13)
[2020-10-29] MEDS: 0.9 % Sodium Chloride 1,000 ML IVC SCH (07:51)
[2020-10-29] MEDS: cefTRIAXone 2,000 MG in Water for inj. (sterile) 20 ML IVP SCH (07:52)
[2020-10-29] MEDS: amLODIPine 5 MG TABLET PO SCH (07:53)
[2020-10-29] MEDS: Gabapentin 300 MG CAPSULE PO SCH ×2 (07:54→20:13)
[2020-10-29] MEDS: Isosorbide MONOnitrate (24 HR) 30 MG TAB.ER.24H PO SCH (07:54)
[2020-10-29] MEDS: carvediloL 6.25 MG TABLET PO SCH ×2 (07:54→17:24)
[2020-10-29] MEDS: Primidone 50 MG TABLET PO SCH ×3 (07:54→20:13)
[2020-10-29 08:53] LABS: Basophils % 0.5 %; Eosinophils # 0.2 K/mcL (0.0-0.6); Hematocrit 33.4 % (35.3-44.9); Immature Granulocytes % 0.4 % (0-4); Lymphocytes # 2.4 K/mcL (0.6-4.6); Lymphocytes % 42.3 %; Mean Corpuscular HGB Conc 32.9 g/dL (31.6-35.5); Mean Corpuscular Hemoglobin 31.5 pg (28.0-33.3); Mean Corpuscular Volume 95.7 fL (83.0-100.0); Mean Platelet Volume 9.5 fL (9.4-12.4); Monocytes # 0.5 K/mcL (0.0-1.3); Monocytes % 9.5 %; Neutrophils # 2.5 K/mcL (1.6-8.9); Platelet Count 298 K/mcL (140-400); Red Blood Count 3.49 M/mcL (3.82-4.97); Red Cell Distribution Width 12.1 % (11.5-14.5); Segmented Neutrophils % 44.3 %; White Blood Count 5.7 K/mcL (4.3-11.1)
[2020-10-29] MEDS ORDERED: cefTRIAXone 2,000 MG in 0.9 % Sodium Chloride Mini Bag 100 ML IVPB SCH (09:00)
[2020-10-29 09:14] LABS: Calcium 8.2 mg/dL (8.6-10.3); Potassium 3.9 mEq/L (3.5-5.1)
[2020-10-29] MEDS: ALPRAZolam 0.25 MG TABLET PO PRN (20:12)
[2020-10-29] MEDS: Acetaminophen 325 MG TABLET PO PRN (20:13)
[2020-10-30 04:57] LABS: Basophils % 0.6 %; Eosinophils # 0.2 K/mcL (0.0-0.6); Eosinophils % 3.7 %; Hematocrit 31.4 % (35.3-44.9); Hemoglobin 10.4 g/dL (11.5-15.4); Immature Granulocytes % 0.2 % (0-4); Lymphocytes # 2.4 K/mcL (0.6-4.6); Lymphocytes % 38.2 %; Mean Corpuscular HGB Conc 33.1 g/dL (31.6-35.5); Mean Corpuscular Hemoglobin 31.2 pg (28.0-33.3); Mean Corpuscular Volume 94.3 fL (83.0-100.0); Mean Platelet Volume 9.1 fL (9.4-12.4); Monocytes # 0.6 K/mcL (0.0-1.3); Monocytes % 9.4 %; Platelet Count 303 K/mcL (140-400); Red Blood Count 3.33 M/mcL (3.82-4.97); Red Cell Distribution Width 11.9 % (11.5-14.5); Segmented Neutrophils % 47.9 %; White Blood Count 6.2 K/mcL (4.3-11.1)
[2020-10-30 07:32] LABS: Calcium 8.5 mg/dL (8.6-10.3); Potassium 4.2 mEq/L (3.5-5.1)
[2020-10-30] MEDS: Insulin LISPRO 300 UNITS/3 ML VIAL SUBQ SCH ×4 (08:06→20:07)
[2020-10-30] MEDS: cefTRIAXone 2,000 MG in Water for inj. (sterile) 20 ML IVP SCH (09:35)
[2020-10-30] MEDS: Primidone 50 MG TABLET PO SCH ×3 (09:36→19:59)
[2020-10-30] MEDS: carvediloL 6.25 MG TABLET PO SCH ×2 (09:36→16:59)
[2020-10-30] MEDS: Gabapentin 300 MG CAPSULE PO SCH ×2 (09:36→19:59)
[2020-10-30] MEDS: *HR* Metformin 500 MG TABLET PO SCH (09:36)
[2020-10-30] MEDS: Isosorbide MONOnitrate (24 HR) 30 MG TAB.ER.24H PO SCH (09:37)
[2020-10-30] MEDS: amLODIPine 5 MG TABLET PO SCH (09:37)
[2020-10-30] MEDS: ALPRAZolam 0.25 MG TABLET PO PRN (19:59)
[2020-10-30] MEDS: Acetaminophen 325 MG TABLET PO PRN (19:59)
[2020-10-31 07:10] VITALS: RESP 18
[2020-10-31 07:27] LABS: Basophils # 0.1 K/mcL (0.0-0.2); Basophils % 0.8 %; Eosinophils # 0.3 K/mcL (0.0-0.6); Hematocrit 32.7 % (35.3-44.9); Hemoglobin 10.8 g/dL (11.5-15.4); Immature Granulocytes % 0.3 % (0-4); Lymphocytes # 2.7 K/mcL (0.6-4.6); Lymphocytes % 41.7 %; Mean Corpuscular Hemoglobin 31.2 pg (28.0-33.3); Mean Corpuscular Volume 94.5 fL (83.0-100.0); Mean Platelet Volume 9.3 fL (9.4-12.4); Monocytes # 0.7 K/mcL (0.0-1.3); Neutrophils # 2.8 K/mcL (1.6-8.9); Platelet Count 305 K/mcL (140-400); Red Blood Count 3.46 M/mcL (3.82-4.97); Segmented Neutrophils % 43.2 %; White Blood Count 6.5 K/mcL (4.3-11.1)
[2020-10-31] MEDS: Insulin LISPRO 300 UNITS/3 ML VIAL SUBQ SCH ×4 (07:45→21:03)
[2020-10-31 07:55] LABS: BUN/Creatinine Ratio 17 (6-26); Blood Urea Nitrogen 17 mg/dL (8-23); Calcium 8.7 mg/dL (8.6-10.3); Carbon Dioxide 32 mEq/L (23-29); Chloride 101 mEq/L (98-107); Glucose 99 mg/dL (70-105); Osmolality,Calculated 288 (280-300); Sodium 138 mEq/L (136-145); eGFR For African Americans > 60 (> 60); eGFR For Non-African Americans 54 (> 60)
[2020-10-31] MEDS: cefTRIAXone 2,000 MG in Water for inj. (sterile) 20 ML IVP SCH (09:03)
[2020-10-31] MEDS: Gabapentin 300 MG CAPSULE PO SCH ×2 (09:04→21:02)
[2020-10-31] MEDS: amLODIPine 5 MG TABLET PO SCH (09:04)
[2020-10-31] MEDS: carvediloL 6.25 MG TABLET PO SCH ×2 (09:04→16:54)
[2020-10-31] MEDS: Isosorbide MONOnitrate (24 HR) 30 MG TAB.ER.24H PO SCH (09:05)
[2020-10-31] MEDS: Primidone 50 MG TABLET PO SCH ×3 (09:05→21:02)
[2020-10-31] MEDS: *HR* Metformin 500 MG TABLET PO SCH (09:05)
[2020-10-31] MEDS: Acetaminophen 325 MG TABLET PO PRN (21:07)
[2020-10-31] MEDS: ALPRAZolam 0.25 MG TABLET PO PRN (21:08)
[2020-11-01 07:10] VITALS: TEMP 98.3
[2020-11-01 08:02] LABS: Basophils # 0.1 K/mcL (0.0-0.2); Basophils % 0.7 %; Eosinophils # 0.2 K/mcL (0.0-0.6); Eosinophils % 3.2 %; Hematocrit 33.2 % (35.3-44.9); Immature Granulocytes % 0.4 % (0-4); Lymphocytes # 3.1 K/mcL (0.6-4.6); Lymphocytes % 40.2 %; Mean Corpuscular HGB Conc 33.1 g/dL (31.6-35.5); Mean Corpuscular Hemoglobin 31.2 pg (28.0-33.3); Mean Corpuscular Volume 94.1 fL (83.0-100.0); Monocytes # 0.7 K/mcL (0.0-1.3); Monocytes % 8.8 %; Neutrophils # 3.6 K/mcL (1.6-8.9); Platelet Count 314 K/mcL (140-400); Red Blood Count 3.53 M/mcL (3.82-4.97); Red Cell Distribution Width 12.1 % (11.5-14.5); Segmented Neutrophils % 46.7 %; White Blood Count 7.6 K/mcL (4.3-11.1)
[2020-11-01 08:16] LABS: BUN/Creatinine Ratio 22 (6-26); Blood Urea Nitrogen 22 mg/dL (8-23); Calcium 8.8 mg/dL (8.6-10.3); Carbon Dioxide 30 mEq/L (23-29); Chloride 100 mEq/L (98-107); Glucose 106 mg/dL (70-105); Osmolality,Calculated 288 (280-300); Potassium 3.8 mEq/L (3.5-5.1); Sodium 137 mEq/L (136-145); eGFR For African Americans > 60 (> 60); eGFR For Non-African Americans 54 (> 60)
[2020-11-01] MEDS: cefTRIAXone 2,000 MG in Water for inj. (sterile) 20 ML IVP SCH (10:00)
[2020-11-01] MEDS ORDERED: Isovue-370 500 ML BOTTLE IVP ONE (10:02)
[2020-11-01] MEDS: carvediloL 6.25 MG TABLET PO SCH (10:05)
[2020-11-01] MEDS: *HR* Metformin 500 MG TABLET PO SCH (10:05)
[2020-11-01] MEDS: Isosorbide MONOnitrate (24 HR) 30 MG TAB.ER.24H PO SCH (10:06)
[2020-11-01] MEDS: Gabapentin 300 MG CAPSULE PO SCH (10:06)
[2020-11-01] MEDS: amLODIPine 5 MG TABLET PO SCH (10:06)
[2020-11-01] MEDS: Primidone 50 MG TABLET PO SCH ×3 (10:08→15:43)
[2020-11-01] MEDS: Insulin LISPRO 300 UNITS/3 ML VIAL SUBQ SCH ×2 (10:16→12:28)
[2020-11-01 14:51] VITALS: BP 138/70; PULSE 66; O2SAT 94
== END 2020-11-01 15:53 | disposition other institution (70) | DRG 690 ==
LOC: EMEROOPIK 12:27 → INPPIK 12:27
PROVIDERS: ADMIT Family Medicine; ATTEND Family Medicine

== ENCOUNTER 2020-11-01 12:38 | Inpatient (IN) ==
[2020-11-01] MEDS ORDERED: *HR* Dextrose 50 % in Water (Vial) 50 ML VIAL IVP PRN (16:28)
[2020-11-01] MEDS ORDERED: Dextrose Gel 15 GM/37.5 ML TUBE PO PRN ×2 (16:28)
[2020-11-01] MEDS ORDERED: D5% in Water 1,000 ML IVC PRN (16:28)
[2020-11-01] MEDS: Insulin LISPRO 300 UNITS/3 ML VIAL SUBQ SCH ×2 (16:51→21:48)
[2020-11-01] MEDS: carvediloL 6.25 MG TABLET PO SCH (17:48)
[2020-11-01] MEDS: Primidone 50 MG TABLET PO SCH (20:12)
[2020-11-01] MEDS: Cefdinir 300 MG CAPSULE PO SCH (20:12)
[2020-11-01] MEDS: Gabapentin 300 MG CAPSULE PO SCH (20:12)
[2020-11-01] MEDS: Acetaminophen 325 MG TABLET PO PRN (20:12)
[2020-11-01] MEDS: ALPRAZolam 0.25 MG TABLET PO PRN (21:48)
[2020-11-02] MEDS: *HR* Enoxaparin 40 MG/0.4 ML SYRINGE SQ SCH ×2 (05:17→05:20)
[2020-11-02 07:04] LABS: Basophils # 0.1 K/mcL (0.0-0.2); Basophils % 0.7 %; Eosinophils # 0.2 K/mcL (0.0-0.6); Eosinophils % 3.3 %; Hematocrit 32.5 % (35.3-44.9); Hemoglobin 10.7 g/dL (11.5-15.4); Immature Granulocytes % 0.3 % (0-4); Lymphocytes % 41.7 %; Mean Corpuscular HGB Conc 32.9 g/dL (31.6-35.5); Mean Corpuscular Hemoglobin 31.4 pg (28.0-33.3); Mean Corpuscular Volume 95.3 fL (83.0-100.0); Mean Platelet Volume 9.4 fL (9.4-12.4); Monocytes # 0.6 K/mcL (0.0-1.3); Monocytes % 8.8 %; Neutrophils # 3.3 K/mcL (1.6-8.9); Platelet Count 327 K/mcL (140-400); Red Blood Count 3.41 M/mcL (3.82-4.97); Red Cell Distribution Width 12.1 % (11.5-14.5); Segmented Neutrophils % 45.2 %; White Blood Count 7.2 K/mcL (4.3-11.1)
[2020-11-02 07:28] LABS: Calcium 8.7 mg/dL (8.6-10.3); Potassium 4.4 mEq/L (3.5-5.1)
[2020-11-02] MEDS: Insulin LISPRO 300 UNITS/3 ML VIAL SUBQ SCH ×4 (08:06→21:20)
[2020-11-02] MEDS: Primidone 50 MG TABLET PO SCH ×2 (09:08→21:48)
[2020-11-02] MEDS: Gabapentin 300 MG CAPSULE PO SCH ×2 (09:09→21:48)
[2020-11-02] MEDS: ALPRAZolam 0.25 MG TABLET PO PRN (09:09)
[2020-11-02] MEDS: carvediloL 6.25 MG TABLET PO SCH ×2 (09:09→17:22)
[2020-11-02] MEDS: Isosorbide MONOnitrate (24 HR) 30 MG TAB.ER.24H PO SCH (09:09)
[2020-11-02] MEDS: Cefdinir 300 MG CAPSULE PO SCH ×2 (09:09→21:48)
[2020-11-02] MEDS: amLODIPine 5 MG TABLET PO SCH (09:09)
[2020-11-02] MEDS: Acetaminophen 325 MG TABLET PO PRN ×3 (09:09→21:48)
[2020-11-03] MEDS: *HR* Enoxaparin 40 MG/0.4 ML SYRINGE SQ SCH (06:50)
[2020-11-03] MEDS: Insulin LISPRO 300 UNITS/3 ML VIAL SUBQ SCH ×4 (09:55→21:53)
[2020-11-03] MEDS: Primidone 50 MG TABLET PO SCH ×2 (10:00→21:49)
[2020-11-03] MEDS: Gabapentin 300 MG CAPSULE PO SCH ×2 (10:00→21:49)
[2020-11-03] MEDS: Isosorbide MONOnitrate (24 HR) 30 MG TAB.ER.24H PO SCH (10:00)
[2020-11-03] MEDS: Cefdinir 300 MG CAPSULE PO SCH ×2 (10:00→21:50)
[2020-11-03] MEDS: amLODIPine 5 MG TABLET PO SCH (10:01)
[2020-11-03] MEDS: carvediloL 6.25 MG TABLET PO SCH ×2 (10:01→15:54)
[2020-11-03] MEDS: Acetaminophen 325 MG TABLET PO PRN (10:15)
[2020-11-03] MEDS: ALPRAZolam 0.25 MG TABLET PO PRN (12:52)
[2020-11-04] MEDS: *HR* Enoxaparin 30 MG/0.3 ML SYRINGE SQ SCH (06:14)
[2020-11-04] MEDS: Insulin LISPRO 300 UNITS/3 ML VIAL SUBQ SCH ×4 (09:17→21:50)
[2020-11-04] MEDS: carvediloL 6.25 MG TABLET PO SCH ×2 (09:19→17:52)
[2020-11-04] MEDS: Primidone 50 MG TABLET PO SCH ×2 (09:19→21:43)
[2020-11-04] MEDS: *HR* Metformin 500 MG TABLET PO SCH (09:19)
[2020-11-04] MEDS: amLODIPine 5 MG TABLET PO SCH (09:19)
[2020-11-04] MEDS: Gabapentin 300 MG CAPSULE PO SCH ×2 (09:19→21:42)
[2020-11-04] MEDS: Isosorbide MONOnitrate (24 HR) 30 MG TAB.ER.24H PO SCH (09:20)
[2020-11-04] MEDS: ALPRAZolam 0.25 MG TABLET PO PRN ×2 (15:11→22:21)
[2020-11-04] MEDS: Acetaminophen 325 MG TABLET PO PRN ×2 (15:11→21:41)
[2020-11-05] MEDS: *HR* Enoxaparin 30 MG/0.3 ML SYRINGE SQ SCH (05:51)
[2020-11-05] MEDS: Insulin LISPRO 300 UNITS/3 ML VIAL SUBQ SCH ×4 (09:01→21:30)
[2020-11-05] MEDS: Isosorbide MONOnitrate (24 HR) 30 MG TAB.ER.24H PO SCH (09:33)
[2020-11-05] MEDS: *HR* Metformin 500 MG TABLET PO SCH (09:33)
[2020-11-05] MEDS: amLODIPine 5 MG TABLET PO SCH (09:33)
[2020-11-05] MEDS: Gabapentin 300 MG CAPSULE PO SCH ×2 (09:34→21:29)
[2020-11-05] MEDS: Primidone 50 MG TABLET PO SCH ×2 (09:34→21:29)
[2020-11-05] MEDS: carvediloL 6.25 MG TABLET PO SCH ×2 (09:34→17:08)
[2020-11-05] MEDS: ALPRAZolam 0.25 MG TABLET PO PRN ×2 (09:34→21:29)
[2020-11-06] MEDS: *HR* Enoxaparin 30 MG/0.3 ML SYRINGE SQ SCH ×2 (05:32→20:56)
[2020-11-06] MEDS: Insulin LISPRO 300 UNITS/3 ML VIAL SUBQ SCH ×4 (07:39→20:54)
[2020-11-06] MEDS: amLODIPine 5 MG TABLET PO SCH (09:29)
[2020-11-06] MEDS: carvediloL 6.25 MG TABLET PO SCH ×2 (09:30→16:55)
[2020-11-06] MEDS: Gabapentin 300 MG CAPSULE PO SCH ×2 (09:30→20:18)
[2020-11-06] MEDS: Isosorbide MONOnitrate (24 HR) 30 MG TAB.ER.24H PO SCH (09:30)
[2020-11-06] MEDS: Primidone 50 MG TABLET PO SCH ×2 (09:30→20:18)
[2020-11-06] MEDS: *HR* Metformin 500 MG TABLET PO SCH (09:30)
[2020-11-06] MEDS ORDERED: Ondansetron ODT 4 MG TAB.RAPDIS SL PRN (10:25)
[2020-11-06] MEDS: ALPRAZolam 0.25 MG TABLET PO PRN (20:18)
[2020-11-07] MEDS: Insulin LISPRO 300 UNITS/3 ML VIAL SUBQ SCH ×4 (08:46→20:25)
[2020-11-07] MEDS: *HR* Metformin 500 MG TABLET PO SCH (08:50)
[2020-11-07] MEDS: Primidone 50 MG TABLET PO SCH ×2 (08:50→20:25)
[2020-11-07] MEDS: amLODIPine 5 MG TABLET PO SCH (08:50)
[2020-11-07] MEDS: Gabapentin 300 MG CAPSULE PO SCH ×2 (08:51→20:25)
[2020-11-07] MEDS: Isosorbide MONOnitrate (24 HR) 30 MG TAB.ER.24H PO SCH (08:51)
[2020-11-07] MEDS: carvediloL 6.25 MG TABLET PO SCH ×2 (08:51→17:04)
[2020-11-07] MEDS: ALPRAZolam 0.25 MG TABLET PO PRN (20:25)
[2020-11-08] MEDS: *HR* Enoxaparin 30 MG/0.3 ML SYRINGE SQ SCH (05:05)
[2020-11-08 07:09] LABS: Basophils # 0.1 K/mcL (0.0-0.2); Basophils % 0.7 %; Eosinophils # 0.3 K/mcL (0.0-0.6); Eosinophils % 3.9 %; Hematocrit 32.5 % (35.3-44.9); Hemoglobin 10.7 g/dL (11.5-15.4); Immature Granulocytes % 0.4 % (0-4); Lymphocytes % 40.1 %; Mean Corpuscular HGB Conc 32.9 g/dL (31.6-35.5); Mean Corpuscular Hemoglobin 31.3 pg (28.0-33.3); Mean Platelet Volume 9.6 fL (9.4-12.4); Monocytes # 0.6 K/mcL (0.0-1.3); Monocytes % 8.3 %; Neutrophils # 3.5 K/mcL (1.6-8.9); Platelet Count 309 K/mcL (140-400); Red Blood Count 3.42 M/mcL (3.82-4.97); Red Cell Distribution Width 12.2 % (11.5-14.5); Segmented Neutrophils % 46.6 %; White Blood Count 7.5 K/mcL (4.3-11.1)
[2020-11-08 07:27] LABS: BUN/Creatinine Ratio 23 (6-26); Blood Urea Nitrogen 21 mg/dL (8-23); Calcium 8.9 mg/dL (8.6-10.3); Carbon Dioxide 30 mEq/L (23-29); Chloride 101 mEq/L (98-107); Glucose 103 mg/dL (70-105); Osmolality,Calculated 287 (280-300); Potassium 3.9 mEq/L (3.5-5.1); Sodium 137 mEq/L (136-145); eGFR For African Americans > 60 (> 60); eGFR For Non-African Americans 60 (> 60)
[2020-11-08] MEDS: Isosorbide MONOnitrate (24 HR) 30 MG TAB.ER.24H PO SCH (08:31)
[2020-11-08] MEDS: carvediloL 6.25 MG TABLET PO SCH ×2 (08:31→16:52)
[2020-11-08] MEDS: Primidone 50 MG TABLET PO SCH ×2 (08:31→21:19)
[2020-11-08] MEDS: Gabapentin 300 MG CAPSULE PO SCH ×2 (08:32→21:19)
[2020-11-08] MEDS: amLODIPine 5 MG TABLET PO SCH (08:32)
[2020-11-08] MEDS: Insulin LISPRO 300 UNITS/3 ML VIAL SUBQ SCH ×4 (08:32→21:20)
[2020-11-08] MEDS: *HR* Metformin 500 MG TABLET PO SCH (08:32)
[2020-11-08] MEDS: ALPRAZolam 0.25 MG TABLET PO PRN (21:22)
[2020-11-09] MEDS: *HR* Enoxaparin 40 MG/0.4 ML SYRINGE SQ SCH (01:11)
[2020-11-09] MEDS: Insulin LISPRO 300 UNITS/3 ML VIAL SUBQ SCH ×4 (09:14→20:44)
[2020-11-09] MEDS: Gabapentin 300 MG CAPSULE PO SCH ×2 (09:37→19:52)
[2020-11-09] MEDS: Isosorbide MONOnitrate (24 HR) 30 MG TAB.ER.24H PO SCH (09:37)
[2020-11-09] MEDS: ALPRAZolam 0.25 MG TABLET PO PRN ×2 (09:37→21:26)
[2020-11-09] MEDS: amLODIPine 5 MG TABLET PO SCH (09:37)
[2020-11-09] MEDS: *HR* Metformin 500 MG TABLET PO SCH (09:38)
[2020-11-09] MEDS: Primidone 50 MG TABLET PO SCH ×2 (09:38→19:52)
[2020-11-09] MEDS: carvediloL 6.25 MG TABLET PO SCH ×2 (09:38→17:04)
[2020-11-10] MEDS: *HR* Enoxaparin 40 MG/0.4 ML SYRINGE SQ SCH (05:26)
[2020-11-10] MEDS: Isosorbide MONOnitrate (24 HR) 30 MG TAB.ER.24H PO SCH (09:04)
[2020-11-10] MEDS: carvediloL 6.25 MG TABLET PO SCH ×2 (09:04→18:42)
[2020-11-10] MEDS: *HR* Metformin 500 MG TABLET PO SCH (09:04)
[2020-11-10] MEDS: amLODIPine 5 MG TABLET PO SCH (09:04)
[2020-11-10] MEDS: Gabapentin 300 MG CAPSULE PO SCH ×2 (09:04→21:45)
[2020-11-10] MEDS: Primidone 50 MG TABLET PO SCH ×2 (09:04→21:45)
[2020-11-10] MEDS: Insulin LISPRO 300 UNITS/3 ML VIAL SUBQ SCH ×4 (09:07→21:46)
[2020-11-10] MEDS: ALPRAZolam 0.25 MG TABLET PO PRN (21:49)
[2020-11-10] MEDS: Acetaminophen 325 MG TABLET PO PRN (21:53)
[2020-11-11] MEDS: *HR* Enoxaparin 40 MG/0.4 ML SYRINGE SQ SCH (05:21)
[2020-11-11] MEDS: Insulin LISPRO 300 UNITS/3 ML VIAL SUBQ SCH ×4 (07:04→21:28)
[2020-11-11] MEDS: Primidone 50 MG TABLET PO SCH ×2 (08:53→21:36)
[2020-11-11] MEDS: Gabapentin 300 MG CAPSULE PO SCH ×2 (08:53→21:36)
[2020-11-11] MEDS: carvediloL 6.25 MG TABLET PO SCH ×2 (08:53→16:31)
[2020-11-11] MEDS: Isosorbide MONOnitrate (24 HR) 30 MG TAB.ER.24H PO SCH (08:53)
[2020-11-11] MEDS: amLODIPine 5 MG TABLET PO SCH (08:54)
[2020-11-11] MEDS: *HR* Metformin 500 MG TABLET PO SCH (08:54)
[2020-11-11] MEDS: ALPRAZolam 0.25 MG TABLET PO PRN (21:36)
[2020-11-12] MEDS: *HR* Enoxaparin 40 MG/0.4 ML SYRINGE SQ SCH (06:10)
[2020-11-12] MEDS: Insulin LISPRO 300 UNITS/3 ML VIAL SUBQ SCH ×4 (08:44→21:10)
[2020-11-12] MEDS: Primidone 50 MG TABLET PO SCH ×2 (09:09→21:08)
[2020-11-12] MEDS: Gabapentin 300 MG CAPSULE PO SCH ×2 (09:10→21:08)
[2020-11-12] MEDS: *HR* Metformin 500 MG TABLET PO SCH (09:10)
[2020-11-12] MEDS: amLODIPine 5 MG TABLET PO SCH (09:12)
[2020-11-12] MEDS: Isosorbide MONOnitrate (24 HR) 30 MG TAB.ER.24H PO SCH (09:12)
[2020-11-12] MEDS: carvediloL 6.25 MG TABLET PO SCH ×2 (09:12→16:49)
[2020-11-12] MEDS: ALPRAZolam 0.25 MG TABLET PO PRN (21:08)
[2020-11-12] MEDS: Acetaminophen 325 MG TABLET PO PRN (21:09)
[2020-11-12 22:17] VITALS: O2SAT 97
[2020-11-13] MEDS: *HR* Enoxaparin 40 MG/0.4 ML SYRINGE SQ SCH (06:37)
[2020-11-13 07:58] VITALS: BP 146/73; PULSE 53; RESP 16; TEMP 97.9
[2020-11-13] MEDS: Insulin LISPRO 300 UNITS/3 ML VIAL SUBQ SCH (09:02)
[2020-11-13] MEDS: Acetaminophen 325 MG TABLET PO PRN (09:10)
[2020-11-13] MEDS: *HR* Metformin 500 MG TABLET PO SCH (09:11)
[2020-11-13] MEDS: ALPRAZolam 0.25 MG TABLET PO PRN (09:11)
[2020-11-13] MEDS: Isosorbide MONOnitrate (24 HR) 30 MG TAB.ER.24H PO SCH (09:11)
[2020-11-13] MEDS: Primidone 50 MG TABLET PO SCH (09:11)
[2020-11-13] MEDS: amLODIPine 5 MG TABLET PO SCH (09:11)
[2020-11-13] MEDS: carvediloL 6.25 MG TABLET PO SCH (09:11)
[2020-11-13] MEDS: Gabapentin 300 MG CAPSULE PO SCH (09:12)
== END 2020-11-13 12:13 | disposition home health service (06) | DRG 945 ==
LOC: INPPIK 16:30
PROVIDERS: ADMIT Family Medicine; ATTEND Family Medicine